=== PATIENT | female | born 1950 | race Caucasian/White ===

== ENCOUNTER 2016-08-30 20:53 | Inpatient (IN) | payer MEDICARE, OTHER ==
[~2016-08-30] VITALS: Ht 165.1 cm; Wt 77.3 kg
[~2016-08-30 20:53] MED LIST: ALPH200T PO; ASPI81TA3 PO; ATOR20TA65 PO; DIGESTIVE ENZYMES PO; FURO40TA4 PO; INSU3INS3 SUBQ; LACT1CAP65 PO; LOSA25TA2 PO; MAGN500C4 PO; METF1000 PO; METO25TA99 PO; MULT-666 PO; NITR0.4T SL; OMEG-38 PO; OXYC1TAB24 PO; POTA99TA21 PO; SPIR25TA PO; VIT1TABL83 PO; colloidal silver PO
[2016-08-30 20:58] VITALS: BP 108/59; PULSE 104; RESP 19; O2SAT 95
--- NOTE | 2016-08-30 21:25 | ED.REPORT ---
HPI-General Illness Date of Service Aug 30, 2016 ED Provider: Jhonny Weiner MD Pt is a 66 y/o female w/ a hx of ischemic cardiomyopathy, IDDM, hyperlipidemia, presenting to the ED with her via EMS c/o worsening SOB onset tonight. She c/o associated peripheral edema, orthopnea, clear productive cough for 2 days, orthopnea. Pt denies CP, fever, chills. She had similar symptoms in December at which time she was diagnosed with CHF. She has been taking medications for her CHF and states she has been doing well in this regard. She does not normally use oxygen at home. Associate Application Developer: Sera Echocardiogram 04/10/16: Interpretation Summary 1) Normal left ventricular thickness, size, and systolic function (EF 55- 60%). 2) Subtle hypokinesis of the distal anterior wall 3) Normal right ventricular size and function. 4) No significant valvular abnormalities. 5) Compared to the Echo 12/08/2015, LV function has improved from 30-35% to normal now. Nursing Notes Stated Complaint: SOB Chief Complaint: Respiratory Distress Nursing Notes Reviewed: Yes Allergies: Coded Allergies: Hednypk-Dir-Ign Reductase Inhibitor (Verified Allergy, Severe, 08/30/16) MUSCLE WEAKNESS AND TOTAL FATIGUE lisinopril (Verified Allergy, Severe, 08/30/16) NECK SWELLING telmisartan (Verified Allergy, Intermediate, RASH, 08/30/16) JALEN Inhibitors (Verified Adverse Reaction, Unknown, rash and cough, ) Scheduled ([Digestive Enzymes]) 1 TAB PO TIDWM ([colloidal silver]) 1 TSP PO BID Alpha Lipoic Acid (Alpha Lipoic Acid) 200 Mg Tablet 400 MG PO DAILY Aspirin Chew (Aspirin Chew) 81 Mg Chew 81 MG PO DAILY Atorvastatin Calcium (Atorvastatin Calcium) 20 Mg Tablet 20 MG PO HS Furosemide (Furosemide) 40 Mg Tablet 40 MG PO DAILY Insuln Asp Prt/Insulin Aspart (NovoLOG 70/30 U100 Insulin Flexpen) 100 Unit/Ml Unit 50 UNIT SUBQ BIDAC Lactobacillus Acidophilus (Probiotic) 1 Each Capsule 1 EACH PO DAILY Losartan Potassium (Cozaar) 25 Mg Tablet 12.5 MG PO HS Magnesium Oxide (Magnesium) 500 Mg Capsule 500 MG PO BID Metformin (Glucophage) 1,000 Mg Tablet 1,000 MG PO BID Metoprolol Succinate ER (Metoprolol Succinate ER) 25 Mg Tab.er.24h 12.5 MG PO MORNING Multivitamin (Once Daily) 1 Each Tablet 1 EACH PO DAILY [place]-3/Dha/Epa/Fish Oil (Fish Oil 1,000 mg Softgel) 1 Each Capsule 1 EACH PO BID Potassium Gluconate (Potassium) 99 Mg Tablet 99 MG PO DAILY Spironolactone (Aldactone) 25 Mg Tablet 25 MG PO DAILY Vit B Comp/C/FA/Iron/Vit E (Vitamin B Complex Tablet) 1 Each Tablet 1 EACH PO DAILY Scheduled PRN Nitroglycerin SL (Nitrostat) 0.4 Mg Tab.subl 0.4 MG SL Q5MIN PRN PRN For Chest Pain IF SBP > 90 oxyCODONE-Acetaminophen 5-325 mg (oxyCODONE-Acetaminophen 5-325 mg) 1 Each Tablet 1 TAB PO Q4H PRN PRN For Severe Pain Max 8 per day General Time Seen by MD: 21:12 Chief Complaint Other (SOB) Hx Obtained From: Patient, EMS Arrived By: Ambulance Sudden in Onset?: No Onset Occurred: 1 - 4 hours ago Symptom Duration: Since onset Severity: Current: No pain currently Severity: Maximum: No pain Recent Healthcare: Previous diagnosis Similar Sx Previous: Yes Past Medical History Past Medical History Notes: Associate Application Developer: Sera Past Medical History Ischemic cardiomyopathy, last echo 04/10/16 with EF of 55-60% Diabetic neuropathy IBS Osteoarthritis of back IDDM Lumbar pain with radiation down left leg Cervical spondylosis without myelopathy Hypertriglyceridemia Hypercholesterolemia Macular degeneration Retinopathy Past Surgical History Cholecystectomy and appendectomy in 1975 Left hip intramedullary nailing 11/07/15 Family History Father with a history of CAD and at 56 of what appeared to be an [place] Mother and sister with a history of diabetes Smoking History Never Smoker Social History Alcohol Use: Denies alcohol use Drug Use: Denies drug use Ambulatory Status Independent Review of Systems Full Review of Systems Constitutional: Denies: Chills, Fever Respiratory: Reports: Prod cough, clear, Shortness of breath Cardiovascular: Reports: Edema, Orthopnea, Denies: Chest pain GI: Denies: Abdominal pain, Nausea, Vomiting Complete sys rev & neg: except as marked. Physical Exam Constitutional: Well-developed, well-nourished. No distress. Not diaphoretic. Head: Normocephalic and atraumatic. Mouth/Throat: Oropharynx is clear and moist. No oropharyngeal exudate. Eyes: EOM are normal. Pupils are equal, round, and reactive to light. Neck: Supple, no tracheal deviation. Cardiovascular: Normal rate, regular rhythm. Equal and intact distal pulses throughout. Pulmonary/Chest: Effort normal. Crackles about the bilateral bases. No respiratory distress. Abdominal: Soft. No distension. There is no tenderness, rebound, or guarding. Musculoskeletal: Range of motion grossly intact, moving all extremities. 1+ peripheral edema present Neurological: AOx3. Grossly nonfocal exam. Strength and sensation intact and equal to bilateral upper and lower extremities. Skin: Warm and dry, no rashes or pallor appreciated. Psychiatric: Appropriate mood and affect. Behavior appears normal. Vital Signs Vital Signs Date Time Temp Pulse Resp B/P Pulse Ox O2 Delivery O2 Flow Rate FiO2 08/30/16 23:26 95 22 110/68 94 Room Air 08/30/16 22:33 94 19 111/68 95 Nasal Cannula 2 08/30/16 21:36 97 14 118/74 96 Nasal Cannula 2 08/30/16 20:58 37.1 104 19 108/59 95 Nasal Cannula 4 Initial VS: Reviewed, Vital signs normal Interpretation & Diagnostics Lab Results Interpretation Result Diagram: 08/30/16211408/30/162114 Test 08/30/16 21:15 White Blood Count 7.7th/mm3 (3.8-10.1) Red Blood Count 2.99mil/mm3 (3.90-5.20) Hemoglobin 10.3g/dL (12.0-15.6) Hematocrit 30.2% (35.0-46.0) Mean Corpuscular Volume 101.0fL (81-100) Mean Corpuscular Hemoglobin 34.4pg (27.0-35.0) Mean Corpuscular Hemoglobin Concent 34.1% (32.0-37.0) Red Cell Distribution Width 12.3% (12.3-15.4) Platelet Count 182bil/L (150-400) Neutrophils (%) (Auto) 78.3% (40-74) Lymphocytes (%) (Auto) 12.6% (14-46) Monocytes (%) (Auto) 6.9% (4-12) Eosinophils (%) (Auto) 1.8% (0-5) Basophils (%) (Auto) 0.1% (0-3) Sodium Level 131mEq/L (134-144) Potassium Level 5.5mEq/L (3.5-5.2) Chloride Level 93mEq/L (97-108) Carbon Dioxide Level 22mmol/L (18-29) Blood Urea Nitrogen 28mg/dL (8-27) Creatinine 1.09mg/dL (0.57-1.00) Estimat Glomerular Filtration Rate 72mL/min (>59) Glucose Level 402mg/dL (60-99) Calcium Level 9.3mg/dL (8.5-10.1) Magnesium Level 2.0mg/dL (1.6-2.6) Total Bilirubin 0.5mg/dL (0.0-1.2) Aspartate Amino Transf (AST/SGOT) 64U/L (0-50) Alanine Aminotransferase (ALT/SGPT) 45U/L (0-32) Alkaline Phosphatase 110U/L (25-165) Troponin T 0.033ug/L (0.0-0.011) Pro-B-Type Natriuretic Peptide 2795pg/mL (0-301) Total Protein 6.8g/dL (6.4-8.4) Albumin 3.9g/dL (3.4-5.0) Hold Lopez Top Tube Received (Received) ECG Interpretation ECG Interpretation: Sinus tachycardia rate [address] changes throughout anterolateral leads, more prominent on this EKG than previous on 12/28/15 Time: 21:05 Interpreted by: ED physician X-Ray Chest Interpretation Chest Xray Interpretation: IMPRESSION: Bilateral lower lobe infiltrates and small pleural effusions suspicious for pulmonary edema. A differential diagnosis is bilateral pneumonia. Recommend clinical correlation. Dictated by: Mp Blevins M.D. on 08/30/2016 at 21:32 Approved by: Mp Blevins M.D. on 08/30/2016 at 21:33 View: Portable, 1 view Interpretation / Wet Read by: Interpret - Radiologist Re-Eval/Medical Decision Med Decision/Clinical Course 66-year-old female presenting to the ED for evaluation of worsening dyspnea this evening in the setting of a history of CHF and peripheral edema starting yesterday. Upon arrival, patient hemodynamically stable; states that she does not normally wear oxygen, however given oxygen here in the ED to maintain sats. No respiratory distress. No chest pain or pressure. Laboratory studies reviewed, most notable for a troponin of 0.033, Pro BNP of 2795. BNP is down from previous, however troponin is mildly elevated. EKG demonstrates diffuse ST changes, however does not meet criteria for a STEMI. Given nitrates and Lasix here in the ED with some improvement in her symptoms. Given the above, plan admission for further management and evaluation of CHF exacerbation, serial troponins, serial EKGs. This was discussed with the hospitalist at 1130 p.m. Patient agreeable to the plan as stated, no further questions. Source of Hx: Old records, EMS Time of Eval: 22:17 Re-Evaluation/Progress Note: Pt rechecked. Informed pt of need for admission. Pt understands and agrees with plan for admission. All questions addressed. Counseled Regarding: Diagnosis, Lab results, Need for admission Discharge & Departure Primary Impression: CHF exacerbation Congestive heart failure type: unspecified congestive heart failure type Qualified Code: I50.9 - Heart failure, unspecified Disposition: ADMITTED TO HOSPITAL Discharge Condition All VS Reviewed: Yes Condition: Stable Referrals: Georgia Boyle PA-C (PCP) [facility] Attestation Portions of this note were transcribed by Malik Abraham. I, Dr. Weiner, personally performed the history, physical exam and medical decision-making; I reviewed and confirmed the accuracy of the information in the transcribed note. Signed by Ru Patel, 08/30/16 - 2199 copies to: Georgia Boyle PA-C, William B MD Aug 30, 2016 21:24 MALIK ABRAHAM Aug 30, 2016 21:58
[2016-08-30 21:26] LABS: BASOPHILS % (AUTO) 0.1 % (0-3); EOSINOPHILS % (AUTO) 1.8 % (0-5); MONOCYTES % (AUTO) 6.9 % (4-12); Mean Corpuscular Hemoglobin 34.4 pg (27.0-35.0); NEUTROPHILS % (AUTO) 78.3 % (40-74); Platelet Count 182 bil/L (150-400)
--- NOTE | 2016-08-30 21:35 | DRSVH ---
PROCEDURE: X-RAY CHEST ONE VIEW, PORTABLE ([id number]) INDICATIONS: CHEST PAIN TECHNIQUE: One view of the chest was acquired. COMPARISON: [facility], CR, XR CHEST 2VW, 12/17/2015, 12:36. [facility], C R, XR CHEST 2VW, 01/19/2016, 13:09. [facility], CR, XR CHEST 1VW (PORTABLE), 12/12/2015, 8:34. FINDINGS: Surgical changes and devices: None. Lungs and pleura: There are bilateral lower lobe infiltrates and small pleural effusions suspicious for pulmonary edema. No pleural effusions or pneumothorax. Mediastinum: Mediastinal contours appear normal. Heart size is normal. Bones and chest wall: No suspicious bony lesions. Overlying soft tissues appear unremarkable. IMPRESSION: Bilateral lower lobe infiltrates and small pleural effusions suspicious for pulmonary raiza ma. A differential diagnosis is bilateral pneumonia. Recommend clinical correlation. Dictated by: Mp Blevins M.D. on 08/30/2016 at 21:32 Approved by: Mp Blevins M.D. on 08/30/2016 at 21:33
[2016-08-30 21:36] VITALS: BP 118/74; PULSE 97; RESP 14; O2SAT 96
[2016-08-30 21:51] LABS: TROPONIN T 0.033 ug/L (0.0-0.011)
[2016-08-30 22:33] VITALS: BP 111/68; PULSE 94; RESP 19; O2SAT 95
[2016-08-30] MEDS ORDERED: Furosemide 10 mg/mL 2 mL Inj IVPUSH ONE (22:55)
[2016-08-30 23:26] VITALS: BP 110/68; PULSE 95; RESP 22; O2SAT 94
[2016-08-31] VITALS (10 sets, daily range): BP systolic 86–120; BP diastolic 60–76; PULSE 76–95; RESP 16–22; O2SAT 92–99
[2016-08-31] MEDS ORDERED: FURO40TA4 PO (00:46)
[2016-08-31] MEDS ORDERED: NOVO7030I SUBQ (00:46)
[2016-08-31] MEDS ORDERED: SPIR25TA3 PO (00:46)
[2016-08-31] MEDS ORDERED: METO25TA99 PO (00:46)
[2016-08-31] MEDS ORDERED: IBUP200C PO (00:50)
[2016-08-31] MEDS ORDERED: UBID200C31 PO (00:50)
[2016-08-31] MEDS ORDERED: PQQ PO (00:50)
[2016-08-31] MEDS ORDERED: VITA40TA PO (00:50)
[2016-08-31] MEDS ORDERED: HAWT500C PO (00:51)
[2016-08-31] MEDS ORDERED: Insulin Human REGular Inj 100 UNIT in 0.9% Sodium Chloride-Pha MIX 100 ML IV SCH ×2 (01:33→02:00)
[2016-08-31] MEDS ORDERED: Ondansetron 2 mg/mL 2 mL Inj IVPUSH PRN (01:35)
[2016-08-31] MEDS ORDERED: Polyethylene Glycol (PEG) 17 Gm Powder PO PRN (01:35)
--- NOTE | 2016-08-31 01:46 | PCM.HPMED ---
Subjective Date of Service Aug 31, 2016 Primary Provider: Admitting Physician: Mikal Spivey MD Primary Care Physician: Georgia Boyle PA-C Attending Physician: Mikal Spivey MD Chief Complaint: worsening shortness of breath History of Present Illness: 66 year old female with h/o of ischemic cardiomyopathy, IDDM, hyperlipidemia, presented to the ED with c/o worsening SOB x 1 day. She c/o associated peripheral edema, orthopnea, clear productive cough for 2 days, orthopnea. Pt denies CP, fever, chills. She had similar symptoms in December at which time she was diagnosed with CHF. She has been taking medications for her CHF and states she has been doing well in this regard. She does not normally use oxygen at home. Allergies Coded Allergies: Dliijgj-Xps-Jdo Reductase Inhibitor (Verified Allergy, Severe, 08/30/16) MUSCLE WEAKNESS AND TOTAL FATIGUE lisinopril (Verified Allergy, Severe, 08/30/16) NECK SWELLING telmisartan (Verified Allergy, Intermediate, RASH, 08/30/16) JALEN Inhibitors (Verified Adverse Reaction, Unknown, rash and cough, ) PMH Ischemic cardiomyopathy, last echo 04/10/16 with EF of 55-60% Diabetic neuropathy IBS Osteoarthritis of back IDDM Lumbar pain with radiation down left leg Cervical spondylosis without myelopathy Hypertriglyceridemia Hypercholesterolemia Macular degeneration Retinopathy Surgical History Cholecystectomy and appendectomy in 1975 Left hip intramedullary nailing 11/07/15 Family History Father with a history of CAD and at 56 of what appeared to be an [place] Mother and sister with a history of diabetes Social History Hx Alcohol Use: No Hx Substance Use: No Hx Tobacco Use: No Smoking Status: Never Smoker Exam Vital Signs Vital Sign - Last Date Time Temp Pulse Resp B/P Pulse Ox O2 Delivery O2 Flow Rate FiO2 08/31/16 01:13 18 117/76 96 Nasal Cannula 2.00 08/31/16 01:11 36.4 91 Exam Head: Normocephalic and atraumatic. Mouth/Throat: Oropharynx is clear and moist. No oropharyngeal exudate. Eyes: EOM are normal. Pupils are equal, round, and reactive to light. Neck: Supple, no tracheal deviation. Cardiovascular: Normal rate, regular rhythm. Equal and intact distal pulses throughout. Pulmonary/Chest: Effort normal. Crackles about the bilateral bases. No respiratory distress. Abdominal: Soft. No distension. There is no tenderness, rebound, or guarding. Musculoskeletal: Range of motion grossly intact, moving all extremities. 1+ peripheral edema present Neurological: AOx3. Grossly nonfocal exam. Strength and sensation intact and equal to bilateral upper and lower extremities. Skin: Warm and dry, no rashes or pallor appreciated. Psychiatric: Appropriate mood and affect. Behavior appears normal. Lab and Diagnostics Result Diagram: 08/30/16211408/30/162114 X-Rays, CTs and MRIs Chest Xray Interpretation: IMPRESSION: Bilateral lower lobe infiltrates and small pleural effusions suspicious for pulmonary edema. A differential diagnosis is bilateral pneumonia. Recommend clinical correlation. Cardiac Echo Impressions Echocardiogram 04/10/16: Interpretation Summary 1) Normal left ventricular thickness, size, and systolic function (EF 55- 60%). 2) Subtle hypokinesis of the distal anterior wall 3) Normal right ventricular size and function. 4) No significant valvular abnormalities. 5) Compared to the Echo 12/08/2015, LV function has improved from 30-35% to Assessment & Plan CHF exacerbation - Will start on iv lasix Pneumonia - Will start on empiric antibiotics: azithromycin, ceftriaxone - Sputum Cultures Elevated troponin - trending up - Likely due to demand ischemia - Will start on heparin drip - Cardiology Consult in AM Anti emetics / Analgesics prn GI ppx: PPI DVT ppx: Heparin GI Prophylaxis: Proton Pump Inhibitor VTE Prophylaxis: Sub-Q Heparin (Unfractionated) Resuscitation Status: CPR: Attempt Resuscitation Mikal Spivey MD Aug 31, 2016 01:46
[2016-08-31] MEDS: Heparin 25K Unit/500mL 0.45 NS 25,000 UNIT in IV Premix 1 EACH IV SCH (02:46)
[2016-08-31] MEDS: cefTRIAXone Inj 1,000 MG in Dextrose 5% Minibag Plus 50 ML IV SCH (03:17)
[2016-08-31 06:06] LABS: BASOPHILS % (AUTO) 0.1 % (0-3); EOSINOPHILS % (AUTO) 0.9 % (0-5); MONOCYTES % (AUTO) 11.2 % (4-12); Mean Corpuscular Hemoglobin 34.3 pg (27.0-35.0); Mean Corpuscular Volume 100.4 fL (81-100); NEUTROPHILS % (AUTO) 64.9 % (40-74); Platelet Count 165 bil/L (150-400)
[2016-08-31] MEDS ORDERED: Insulin ASPART 70/30 100 Unit/mL Syringe SUBQ SCH (07:30)
--- NOTE | 2016-08-31 07:48 | NUR ---
Arrival to [facility] room 3029 Patient arrived at 0100. alert and oriented able to make needs known. vitals stable. critical troponin result. MD paged. new order for heparin gtt. blood sugar 354. patient started on insulin gtt per md orders. no c/o pain. med rec completed in ER. vitals stable. tele in place.admission assessment completed. will continue to monitor.
[2016-08-31 09:14] LABS: BASOPHILS % (AUTO) 0.1 % (0-3); EOSINOPHILS % (AUTO) 1.6 % (0-5); MONOCYTES % (AUTO) 6.2 % (4-12); Mean Corpuscular Hemoglobin 34.7 pg (27.0-35.0); Mean Corpuscular Volume 101.1 fL (81-100); NEUTROPHILS % (AUTO) 61.4 % (40-74); Platelet Count 169 bil/L (150-400)
--- NOTE | 2016-08-31 10:55 | NUR ---
TNI/insulin drip call recd from lab reporting CH trop, now 0.091. Pt asymptomatic. Cardio consult pending. Insulin drip d/c now, last check was 87. notified of changes. Will continue to monitor.
[2016-08-31] MEDS: Heparin Protocol Boluses IVPUSH PRN ×2 (10:57→15:24)
[2016-08-31] MEDS: Furosemide 10 mg/mL 4 mL Inj IVPUSH SCH (11:29)
[2016-08-31] MEDS: Pantoprazole 20 mg ER24 Tablet PO SCH (11:29)
--- NOTE | 2016-08-31 15:35 | NUR ---
Social Work: Initial Assessment Data: Pt is a 66 y/o female admitted for CHF exacerbation. Pt's PCP is Dr Boyle, pt's insurance is Medicare with [employer] supp. EMR reviewed. Readmit score not listed. ENTRY LEVEL ACCOUNTING CLERK met with pt at bedside, role explained. Pt states she lives on [address] with her spouse in a single story home where she uses a cane. Pt is on O2 at the hospital, not on O2 at baseline. Pt drives, has hx of HH with [facility], no SNF hx, no LTC or VA benefits, and pt is not a caregiver. Likely no d/c planning needs at this time. ENTRY LEVEL ACCOUNTING CLERK will continue to follow for possible HH need or other d/c needs. Assessment: Pt who is independent at baseline. Plan: Pt will d/c home via POV when medically stable with spouse. Likely no d/c planning needs at this time. ENTRY LEVEL ACCOUNTING CLERK will continue to follow for possible HH need or other d/c needs. RYAN Devlin Addendum: 08/31/16 at 1539 by TONIE FARLEY Amended: Links added.
--- NOTE | 2016-08-31 16:42 | CONS ---
[address] [address] CONSULTATION REPORT PATIENT: REED TANNER : 1950 MR#: [id number] ADMIT: 08/31/2016 JOB ID: [id number] DATE OF SERVICE: 08/31/2016 CHIEF COMPLAINT: Shortness of breath. REQUESTING PHYSICIAN: Isaac Tolentino MD HISTORY OF PRESENT ILLNESS: This 66-year-old female with history of ischemic cardiomyopathy got admitted to the hospital with shortness of breath. This shortness of breath was gradually progressive. She used to be on a diuretic but had stopped taking her diuretics once she achieved her dry weight. She started noticing shortness of breath. She also had some chest discomfort. The chest discomfort was well localized around her sternum. It was in an area no greater than a quarter. She correctly identified it as being noncardiac. She had similar symptoms in December when she was admitted to the hospital and diagnosed with CHF. Her EF used to be around 30% to 35%. In December of last year Dr. Abbasi did an intervention on her ramus. Her MRI showed an improved EF of around 48%. There was viable myocardium. She has a chronically occluded LAD. This vessel was never intervened upon. Her last echocardiogram showed hypokinesis in the anterior wall. Her ejection fraction had also improved to about 50%. The patient currently feels better. She is less short of breath. She denied any orthopnea or PND to me. She is denying any fever or chills. She states her symptoms started a few days ago, when she started having cough. The cough was productive with clear sputum. She, as mentioned, denied any night sweats, fevers, etc. The chest x-ray done in the hospital showed bibasilar infiltrates which could be suspicious for pneumonia. There was also a suggestion of her being fluid overloaded. Her proBNP was elevated as well. PAST MEDICAL HISTORY: Ischemic cardiomyopathy, diabetes, IBS, arthritis, cervical spondylitis, dyslipidemia, macular degeneration, retinopathy. PAST SURGICAL HISTORY: Status post hip surgery, cholecystectomy, and appendectomy. FAMILY HISTORY: Positive for premature coronary artery disease in her father. PERSONAL HISTORY: Nonsmoker, nondrinker. REVIEW OF SYSTEMS: Comprehensive review of system was done and is as per HPI. More importantly, no GI or bleeding. No upcoming surgeries. PHYSICAL EXAMINATION: Vitals: Pulse is 79, blood pressure 110/69. Neck: Supple. No JVD. No bruits. Chest: Clear. Heart sounds S1, S2 regular. No gallops. Abdomen: Soft. Extremities: 2+ edema. SHEET ROCK INSTALLER: Alert and oriented x3. LABORATORY DATA: Hemoglobin is 9.6, white count is 7.7. Creatinine is 1. Troponin was 0.41 on admission and has gone up to 0.91. Her EKG shows sinus rhythm with inferolateral ST-segment depression suggestive of ischemia. Her proBNP is 2800. ASSESSMENT AND PLAN: 1. This lady has a history of ischemic cardiomyopathy. She presents with symptoms suggestive of heart failure. I would recommend aggressive diuresis and repeating a chest x-ray. If her basilar infiltrates are not resolved, then she should be treated aggressively for bilateral pneumonia. 2. She is anemic. She needs to be worked up for anemia as well. 3. Ischemic cardiomyopathy. With non-ST elevation myocardial infarction on this admission. There is evidence of viability in the LAD territory. I have reviewed the patient's angiograms, both from December 08 and December 27. I feel her LAD can be intervened upon and it might be amenable to recanalization. 4. Medication-spencer I would recommend adding spironolactone and Coreg to her current regimen. Cardiology will be happy to follow the patient along with you. Over 60 minutes were spent in patient's care. This includes reviewing her prior angiogram and prior charts, as well as interviewing the patient.
[2016-08-31] MEDS ORDERED: Insulin Human NPH-Reg 70-30 100 Unit/mL 10 ML Mdv SUBQ SCH (18:26)
[2016-08-31] MEDS: Insulin Human REGular 300 Unit/3 mL Inj SUBQ SCH ×2 (19:05→22:46)
--- NOTE | 2016-08-31 23:11 | NUR ---
Pt teaching CHF/DM Pt refused teaching. States she was dx with CHF in Dec 2015, recd teaching and pamphlet then. Has been a diabetic for >10 yrs.
[2016-09-01] VITALS (9 sets, daily range): BP systolic 95–109; BP diastolic 57–68; PULSE 88–102; RESP 16–18; O2SAT 90–99
[2016-09-01] MEDS: cefTRIAXone Inj 1,000 MG in Dextrose 5% Minibag Plus 50 ML IV SCH (02:01)
[2016-09-01] MEDS: Heparin 25K Unit/500mL 0.45 NS 25,000 UNIT in IV Premix 1 EACH IV SCH (02:02)
--- NOTE | 2016-09-01 05:45 | NUR ---
Night PT slept well all night, no voiced complaints. Blood sugars under 200, she remains NPO for possibility of a visit to the label remover.
[2016-09-01 07:36] LABS: INR 1.05 ratio
[2016-09-01] MEDS: Insulin Human REGular 300 Unit/3 mL Inj SUBQ SCH ×4 (07:50→20:40)
[2016-09-01] MEDS: Furosemide 10 mg/mL 4 mL Inj IVPUSH SCH (07:50)
--- NOTE | 2016-09-01 08:00 | NUR ---
IVF Pt with DM2 on D5 1/2 NS (NPO waiting on cardio orders). Bilateral LE with trace of pitting edema. BG continue to be high, on sliding scale insulin. MD notified of above and asked to possibly transition to NS for hydration.
[2016-09-01 09:07] LABS: Magnesium 1.9 mg/dL (1.6-2.6)
[2016-09-01] MEDS: Pantoprazole 20 mg ER24 Tablet PO SCH (11:20)
--- NOTE | 2016-09-01 14:10 | DRSVH ---
PROCEDURE: X-RAY CHEST, TWO VIEWS ([id number]) INDICATIONS: SOB TECHNIQUE: 2 views of the chest were acquired. COMPARISON: [facility], CR, XR CHEST 1VW (PORTABLE), 08/30/2016, 20:51. [facility], CR, XR CHEST 2VW, 01/19/2016, 13:09. FINDINGS: Surgical changes and devices: None. Lungs and pleura: Slight decrease in pulmonary edema as well as air space opacity involving the right lung base, otherwise bibasilar airspace opacities persist and there is a small left pleural effusion . Mediastinum: Mediastinal contours are normal. Heart size is normal. Bones and chest wall: No suspicious bony abnormalities. Soft tissues appear unremarkable. IMPRESSION: Slight decrease in pulmonary edema as well as improvement involving the right lung base with persiste nt consolidation involving the left lung base. Small pleural effusion. Dictated by: Donovan CAPPS Interpreted: Shayy Styles MD on 09/01/2016 at 9:37 Approved by: Shayy Styles M.D. on 09/01/2016 at 14:07
--- NOTE | 2016-09-01 15:54 | NUR ---
GENEVIEVE Signed @ [id number]
[2016-09-01] MEDS: Insulin ASPART 70/30 FlexPen 300 Unit/3 mL Inj SUBQ SCH (17:16)
--- NOTE | 2016-09-01 18:08 | NUR ---
Oxygen Pt now on RA, sating in upper 90s. Denies SOB, difficulty breathing. Will continue to monitor.
--- NOTE | 2016-09-01 18:26 | PCM.PNMED ---
Subjective Date of Service Sep 01, 2016 Subjective Denies any new issues/complaints Exam Vital Signs Vital Sign - Last Date Time Temp Pulse Resp B/P Pulse Ox O2 Delivery O2 Flow Rate FiO2 09/01/16 17:24 36.9 100 16 109/68 97 Room Air 09/01/16 09:35 0.50 Intake and Output 08/31/16 08/31/16 09/01/16 Cumulative From/Thru 15:00 23:00 07:00 08/30/16 20:58 - 09/01/16 05:06 Intake Total 31 ml 1818 ml 0 ml 1849 ml Output Total 800 ml 850 ml 2450 ml Balance -769 ml 968 ml 0 ml -601 ml Intake Oral 0 ml 0 ml 0 ml IV Total 31 ml 1818 ml 1849 ml Output Urine Total 800 ml 850 ml 2450 ml # Voids 1 1 # Bowel Movements 1 1 General: Alert, Cooperative, No Acute Distress Head: Normal Eyes: Scleral Anicteric Nose: Mucous Membr Moist/[place] Mouth: Mucous Membr Moist/[place] Neck: Supple Chest & Lungs: Chest Wall Normal, Clear to auscultation & percussion Cardiovascular: Regular Rate/Rhythm Pulses: NL carotid, radial, femoral, DP, PT Abdomen: Non-tender, Non-distended, Normoactive bowel tones, Soft Extremities: No cyanosis/clubbing/edma bilat Neurological: Grossly Neurologically Intact, Normal Speech IVs and Medications Medications Reviewed: Medications were reviewed in detail Lab and Diagnostics Result Diagram: 08/31/16 0911 09/01/16 0658 X-Rays, CTs and MRIs Date of Service: 09/01/16 0600 PROCEDURE: X-RAY CHEST, TWO VIEWS ([id number]) IMPRESSION: Slight decrease in pulmonary edema as well as improvement involving the right lung base with persistent consolidation involving the left lung base. Small pleural effusion. Dictated by: Donovan Nichols A Interpreted: Shayy Styles MD on 09/01/2016 at 9:37 Approved by: Shayy Styles M.D. on 09/01/2016 at 14:07 Cardiac Echo Impressions Echocardiogram 04/10/16: Interpretation Summary 1) Normal left ventricular thickness, size, and systolic function (EF 55- 60%). 2) Subtle hypokinesis of the distal anterior wall 3) Normal right ventricular size and function. 4) No significant valvular abnormalities. 5) Compared to the Echo 12/08/2015, LV function has improved from 30-35% to Assessment & Plan 66 year old female with h/o of ischemic cardiomyopathy, IDDM, hyperlipidemia, presented to the ED with c/o worsening SOB x 1 day. She c/o associated peripheral edema, orthopnea, clear productive cough for 2 days, orthopnea. Pt denies CP, fever, chills. She had similar symptoms in December at which time she was diagnosed with CHF. # Acute on chronic systolic congestive heart failure, present on admission - Continue with IV Lasix for now - No echo ordered on admission. Will order limited echo (last one in Apr 2016) - Appreciate cardiology consult. Will followup with recs # Suspected acute pneumonia on admission. - Clinically seems unlikely given no significant leukocytosis, negative procalcitonin, afebrile and without any other general symptoms other than occasional cough - Will stop azithromycin and ceftriaxone that was started on admission - Followup pending cultures - Followup repeat chest x-ray in few day or as outpatient to ensure resolution # Elevated troponin, present on admission - Possible demand ischemia vs acute NSTEMI - Appreciate cardiology consult. Will followup with recommendations - Unclear if plan for cath or further medical management at this time. - Continue with current meds # Diabetes mellitus - Continue with home dose Insulin - ISS # Reported history of hyperlipidemia on admission - Check fasting lipid panel - Reported allergy to Statins Dispo: 1-2 days pending cardiology workup GI Prophylaxis: Proton Pump Inhibitor VTE Prophylaxis: Sub-Q Heparin (Unfractionated) VTE Mechanical Devices: Venous Foot Pump Resuscitation Status: CPR: Attempt Resuscitation Isaac Tolentino Sep 01, 2016 18:26
--- NOTE | 2016-09-01 18:42 | NUR ---
IV heparin d/c Per orders, IV heparin stopped. Pt denied observing any signs of bleeding. Is happy to be "free" of IV pole.
[2016-09-01] MEDS: MeTOProlol XL 25 mg ER24 Tablet PO SCH (21:26)
[2016-09-02] VITALS (14 sets, daily range): BP systolic 98–122; BP diastolic 60–77; PULSE 85–127; RESP 16–25; O2SAT 86–100
--- NOTE | 2016-09-02 00:11 | PROG NOTE ---
[address] [address] PROGRESS NOTE PATIENT: REED TANNER : 1950 MR#: [id number] ADMIT: 08/31/2016 JOB ID: [id number] DATE: 09/01/2016 SUBJECTIVE: The patient says she is feeling much better. She is almost ready to go home. OBJECTIVE: Vital signs reviewed. Temperature 36.7 degrees. Blood pressure 95/59, up to 109/68. Pulse 88, up to 102 beats per minute. Satting 99% on 0.5 L O2 via nasal cannula. Her I's and O's yesterday she put out 600 cc out more than in. Her weight is stable on built in bed scale. CURRENT MEDICATIONS: 1. Aspirin 81 mg daily. 2. Lasix 40 mg IV. 3. Spironolactone 25 mg daily. 4. 70/30 insulin. 5. Humulin sliding scale. 6. Azithromycin and ceftriaxone. 7. Metoprolol succinate 25 mg daily. PHYSICAL EXAMINATION: Well-nourished woman, no apparent distress. Eyes: No scleral icterus. Heart: Normal S1, S2. No murmurs. Lungs with crackles at bases bilaterally. Abdomen is soft, positive bowel sounds. No hepatosplenomegaly. Extremities show mild bilateral edema. ASSESSMENT AND PLAN: This is a 66-year-old woman with history of ischemic cardiomyopathy, status post intervention December 2015. At that time, drug-eluting stent was deployed. It is interesting to note that she does not recall taking Plavix and certainly has not been on it recently. Be that as it may, her ejection fraction improved after intervention going up from 30-35% in December 2015 up to 55% on the more recent echocardiogram in April 2016. She has chronic total occlusion of LAD with evidence of viability based on cardiac MRI. Her angiograms were reviewed by faculty at [facility]. Both Dr. Nelson and Dr. Rodriguez weighed in on her angiogram and felt that intervention to LAD would be high risk. The patient had a consultation with Dr. Zamora and at that time decided that she did not want to pursue anything particularly risky and preferred to be managed medically. She was admitted with basically episode of acute decompensated heart failure after stopping her Lasix in March 2016. She says she has been compliant with Toprol-XL and spironolactone. She is not taking either JALEN-inhibitor nor angiotensin receptor reagan due to history of allergy with hives and "throat tightness." EKG shows stable old [address]-depression in leads V4-V6, infrequent PACs as well as mild troponin T elevation at 0.09. The plan for this patient is to repeat limited echocardiogram tomorrow, initiate beta reagan, and have her follow up as an outpatient with Dr. Zamora because she says she is feeling markedly better. Depending on how she looks, she may be eligible potentially to be sent home tomorrow which will be on September 02, 2016. Thank you very much for the opportunity to evaluate her. KAREN
[2016-09-02] MEDS: cefTRIAXone Inj 1,000 MG in Dextrose 5% Minibag Plus 50 ML IV SCH (01:18)
--- NOTE | 2016-09-02 03:17 | NUR ---
PT COMPLAINTS/OXYGEN NEEDS Pt c/o "pressure in my chest." Pt states she has had this feeling before, but it's "more now." Pt was placed on 0.5L towards the beginning of the shift, d/t oxygen saturations 90% on RA. At time pt c/o chest pressure, oxygen saturation 86% on 0.5L. EKG ordered, SR. Oxygen turned up to 2-3L to maintain 92-93%. Pt states pressure resolved after oxygen saturation improved. Later pt c/o "bloating in my diaphragm." Pt requested soda to belch. Pt given soda, pt did belch, states release of gas has alleviated symptoms. Pt denies "heartburn" feeling. LS scattered crackles, whereas initial assessment, LS clear. paged regarding pt complaints, LS and oxygen use, and for possible dose of IV lasix. Due to pts lower BPs, lasix will not be given at this time. Continue to monitor.
[2016-09-02] MEDS: Alum-Mag Hydrox-Simeth 30 mL Suspension PO PRN ×2 (03:38→12:08)
[2016-09-02 07:33] LABS: BASOPHILS % (AUTO) 0.4 % (0-3); MONOCYTES % (AUTO) 10.4 % (4-12); Mean Corpuscular Hemoglobin 33.8 pg (27.0-35.0); Mean Corpuscular Volume 100.4 fL (81-100); NEUTROPHILS % (AUTO) 53.9 % (40-74); Platelet Count 183 bil/L (150-400)
[2016-09-02 07:57] LABS: Magnesium 1.9 mg/dL (1.6-2.6)
[2016-09-02] MEDS: Furosemide 10 mg/mL 4 mL Inj IVPUSH SCH (09:03)
[2016-09-02] MEDS: Insulin Human REGular 300 Unit/3 mL Inj SUBQ SCH ×4 (09:05→21:18)
[2016-09-02] MEDS: Pantoprazole 20 mg ER24 Tablet PO SCH (09:06)
[2016-09-02] MEDS: MeTOProlol XL 25 mg ER24 Tablet PO SCH (09:06)
--- NOTE | 2016-09-02 11:35 | NUR ---
02 titration Pt on 3L via NC, 02 sat 97-98%. Titrated down to 2L at 1130. Addendum: 09/02/16 at 1827 by NESTOR BHAGAT RN Pt 02 sats 100% on 2L while sitting up, eating and talking without difficulty. 02 titrated down to 1L via NC.
--- NOTE | 2016-09-02 12:31 | NUR ---
Social Work-readiness for discharge: Data:EMR Reviewed. Pt is on day 2 of hospitalization for CHF exacerbation per H&P. Pt is not medically stable anticipate 1-2 more days. has not placed any orders for SW at this time. Pt resides at home with her , pt has been up independent in her room. No anticipated discharge needs. SW will continue to follow if needs arise. Assessment:Pt who is independent at baseline. Plan:Pt to discharge home when medically stable via POV. No anticipated discharge needs. SW will continue to follow if needs arise. RYAN Oseguera
--- NOTE | 2016-09-02 16:00 | DRSVH ---
Located Within [facility] [address] [place] [address] Echocardiogram Report Name: REED TANNER LStudy Date: 09/02/2016 Height: 66 in Hospital Exam Location: [facility] Weight: 172 lb Gender: Female BSA: 1.9 m2 : 1950 Age: 66 yrs BP: 102/66 mmHg Reason For Study: Congestive Heart Failure History: CAD Ordering Physician: Cora Mccarty Performed By: Dalia Sales Referring Physician: Robin Johnson Interpretation Summary NSR. Worsening cardiomyopathy. Normal LV size and upper limit of normal concentric LVH. There is mid- inferoseptal, mid-anteroseptal, distal septal, mid-inferolateral and basal anterolateral hypokinesis. There is basal anterior, mid-anterior, distal- anterior, mid-anterolateral akinesis. Otherwise normal wall motion. EF is 35- 40%. Stage II diastolic dysfunction. Moderate bilateral pleural effusions. Compared to prior study 04/10/2016, pleural effusions are new. EF is down from 50-55% to 35-40%. Focal wall motion abnormalities are new. Procedure: A two-dimensional transthoracic echocardiogram with color flow and Doppler was performed in limited views only. The study quality was technically adequate. Comparison is made with the echocardiogram of 04/10/2016. The patient was in normal sinus rhythm during the exam. The patient had occasional PACs during the exam. Left Ventricle: The left ventricle is normal in size. Left ventricular wall thickness is at the upper limits of normal. The ejection fraction is estimated to be 35-40%. Spectral Doppler of the mitral inflow yields an E/A ratio that is between 0.8 and 1.5. The E/E' ratio is abnormal. Right Ventricle: The right ventricle is normal in size and function. Mitral Valve: There is mild mitral regurgitation. Tricuspid Valve: There is trace tricuspid regurgitation. The right ventricular systolic pressure is estimated at least 51 mmHg assuming a right atrial pressure of 8 mm Hg. Compared to the prior echo exam, there has been an increase in the severity of pulmonary hypertension. Great Vessels: The IVC is of normal diameter and collapses less than 50% with a sniff. This suggests a right atrial pressure of 8 mm Hg. Pericardium/ Pleura There is a small loculated pericardial effusion. There are no echocardiographic or Doppler indications for cardiac tamponade. There are moderate-sized bilateral pleural effusions noted. MMode/2D Measurements & Calculations LVIDd: 4.6 cm RA long axis EDV(MOD-sp2) LVIDs: 3.2 cm LA A4 area: 20.3 cm FS: 30.7 % LA length (vol): 4.9 cm RA area ESV(MOD-sp2) IVSd: 0.97 cm IVC diam: 2.0 cm LVPWd: 1.0 cm : 10.5 cm EF(MOD-sp2) RA vol: 24.5 ml: 34.8 % RA : 13.2 mm2 LV oh. diameter/BSA LV sys. diameter/BSA (cm/m^2): 2.5 (cm/m^2): 1.7 Doppler Measurements & Calculations MV E max michele MV E/A: 1.3 TR max michele MV dec time : 111.6 cm/sec Med Peak E' Michele : 327.2 cm/sec : 0.11 sec MV A max michele TR max PG : 84.7 cm/sec E/E' med: 24.3 : 42.8 mmHg MV P1/2t: 32.1 msec Lat Peak E' Michele MR ERO: 0.05 cm2 E/E' lat: 20.3 E/e' average: 22.3 MV P1/2t max michele MR flow rate : 24.6 cm3/sec MVA(P1/2t): 6.9 cm2 MR PISA radius : 0.30 cm Reading Physician:03:59 PM
--- NOTE | 2016-09-02 16:46 | PCM.PNMED ---
Subjective Date of Service Sep 02, 2016 Subjective Denies any new issues/complaints Exam Vital Signs Vital Sign - Last Date Time Temp Pulse Resp B/P Pulse Ox O2 Delivery O2 Flow Rate FiO2 09/02/16 13:28 36.6 87 18 105/65 96 Nasal Cannula 2.00 Intake and Output 09/01/16 09/01/16 09/02/16 Cumulative From/Thru 14:59 22:59 06:59 08/30/16 20:58 - 09/02/16 06:48 Intake Total 1297 ml 302 ml 3448 ml Output Total 1175 ml 300 ml 3925 ml Balance 122 ml 2 ml -477 ml Intake Oral 836 ml 237 ml 1073 ml IV Total 461 ml 65 ml 2375 ml Output Urine Total 1175 ml 300 ml 3925 ml # Voids 1 # Bowel Movements 1 2 Exam General: Alert, Cooperative, No Acute Distress Head: Normal Eyes: Scleral Anicteric Nose: Mucous Membr Moist/[place] Mouth: Mucous Membr Moist/[place] Neck: Supple Chest & Lungs: Chest Wall Normal, Clear to auscultation bilat Cardiovascular: Regular Rate/Rhythm Pulses: NL carotid, radial, femoral, DP, PT Abdomen: Non-tender, Non-distended, Normoactive bowel tones, Soft Extremities: No cyanosis/clubbing/edema bilat Neurological: Grossly Neurologically Intact, Normal Speech IVs and Medications Medications Reviewed: Medications were reviewed in detail Lab and Diagnostics Result Diagram: 09/02/16 0620 09/02/16 0620 X-Rays, CTs and MRIs Date of Service: 09/01/16 0600 PROCEDURE: X-RAY CHEST, TWO VIEWS ([id number]) IMPRESSION: Slight decrease in pulmonary edema as well as improvement involving the right lung base with persistent consolidation involving the left lung base. Small pleural effusion. Dictated by: Donovan Nichols RR Interpreted: Shayy Styles MD on 09/01/2016 at 9:37 Approved by: Shayy Styles M.D. on 09/01/2016 at 14:07 Cardiac Echo Impressions Date of Service: 09/02/16 0735 Echocardiogram Report Interpretation Summary NSR. Worsening cardiomyopathy. Normal LV size and upper limit of normal concentric LVH. There is mid- inferoseptal, mid-anteroseptal, distal septal, mid-inferolateral and basal anterolateral hypokinesis. There is basal anterior, mid-anterior, distal- anterior, mid-anterolateral akinesis. Otherwise normal wall motion. EF is 35- 40%. Stage II diastolic dysfunction. Moderate bilateral pleural effusions. Compared to prior study 04/10/2016, pleural effusions are new. EF is down from 50-55% to 35-40%. Focal wall motion abnormalities are new. Reading Physician:03:59 PM Assessment & Plan 66 year old female with h/o of ischemic cardiomyopathy, IDDM, hyperlipidemia, presented to the ED with c/o worsening SOB x 1 day. # Acute on chronic systolic congestive heart failure, present on admission - Continue with IV Lasix for now - Echo 09/02 showing: "Compared to prior study 04/10/2016, pleural effusions are new. EF is down from 50-55% to 35-40%. Focal wall motion abnormalities are new. " - Appreciate cardiology consult. Will followup with recs # Elevated troponin, present on admission likely representing acute NSTEMI given echo findings noted above - Appreciate cardiology consult. Will followup with recommendations - Resume heparin drip - Cardiac med adjustment per cardiology consult - Tentative plan for cardiac cath on Sunday # Acute hyponatremia and mild azotemia. Not present on admission. - Likely due to pre-renal state from IV Lasix and cardiomyopathy - Followup BMP closely # Suspected acute pneumonia on admission. - Clinically seems unlikely given no significant leukocytosis, negative procalcitonin, afebrile and without any other general symptoms other than occasional cough - Hold azithromycin and ceftriaxone that was started on admission - Followup pending cultures - Followup repeat chest x-ray in few day or as outpatient to ensure resolution # Diabetes mellitus - Continue with home dose Insulin - ISS # Reported history of hyperlipidemia on admission - Fasting lipid panel wnl - Reported allergy to Statins Dispo: 2-3 days pending cardiology workup GI Prophylaxis: Proton Pump Inhibitor VTE Prophylaxis: Sub-Q Heparin (Unfractionated) VTE Mechanical Devices: Venous Foot Pump Resuscitation Status: CPR: Attempt Resuscitation Isaac Tolentino Sep 02, 2016 16:46
[2016-09-02] MEDS ORDERED: Heparin 25K Unit/500mL 0.45 NS 25,000 UNIT in IV Premix 1 EACH IV SCH (16:50)
[2016-09-02] MEDS ORDERED: Heparin 5,000 Unit/mL Inj IVPUSH PRN (16:50)
[2016-09-02] MEDS ORDERED: Furosemide 10 mg/mL 2 mL Inj IVPUSH ONE (17:10)
[2016-09-02] MEDS: Insulin ASPART 70/30 FlexPen 300 Unit/3 mL Inj SUBQ SCH (17:33)
--- NOTE | 2016-09-02 17:39 | NUR ---
Heparin gtt Heparin gtt started this evening at 1735 following STAT PTT. Pt on a cardiac infusion, initial rate at 1000u/hr (20ml/hr). Pt educated on indicators of bleeding, reports understanding.
--- NOTE | 2016-09-02 18:20 | NUR ---
Heparin gtt PTT result: 24.9. Current rate 1000u/hr (20ml/hr). Per protocol, Heparin bolus of 5000unit given and rate increased to 1200u/hr (24ml/hr). Next PTT check in 6 hours. Above verified with Mariella Carrasco RN.
[2016-09-02] MEDS ORDERED: MeTOProlol 1 mg/mL 5 mL Inj IV ONE ×3 (21:55→23:30)
[2016-09-02 21:56] LABS: APPEARANCE,URINE HAZY (CLEAR,HAZY); COLOR,URINE STRAW (YELLOW); OCCULT BLOOD,URINE NEGATIVE (NEGATIVE); UROBILINOGEN,URINE NORMAL (NORMAL)
[2016-09-02 22:31] LABS: BASOPHILS % (AUTO) 0.3 % (0-3); EOSINOPHILS % (AUTO) 4.9 % (0-5); MONOCYTES % (AUTO) 9.3 % (4-12); Mean Corpuscular Hemoglobin 34.4 pg (27.0-35.0); Mean Corpuscular Volume 100.7 fL (81-100); NEUTROPHILS % (AUTO) 52.4 % (40-74); Platelet Count 205 bil/L (150-400)
--- NOTE | 2016-09-02 22:34 | NUR ---
ATTEMPTED TO NOTIFY PTS OF TRANSFER RN called pts , Nick, @ [phone]. Pts did not answer. RN left message that pt transferred to Room 2024, and phone # [phone] left on message for pts to call with any questions.
--- NOTE | 2016-09-02 22:36 | NUR ---
TRANSFER TO [facility] 2024 Pt up to BR, c/o SOB, oxygen needs increased from 1L NC to 5L oxymask to maintain adequate oxygen saturations. HR sustaining 120-140s. EKG obtained, sinus tachycardia. Pt denies chest pain. LS faint crackles. MD notified of pt change in condition. Orders rec'd for OT dose IV metoprolol 5mg and to transfer to 2nd floor. Pts personal belongings, chart and medications transferred downstairs w/ pt. Pt transported via hospital bed, on 5L w/ portable oxygen tank, on MP30 monitor. Hep gtt infusing. [facility] RN escorted pt to 2024 approx 2214. Face to face report given to [facility] RNAnabel.
--- NOTE | 2016-09-02 22:38 | ABG ---
DateTimeAnalyzed 22:30:11 -_ pH ____7.347 - 7.350 7.450 pCO2 ___51.0__ -mmHg 35.0 45.0 pO2 ___22.5__ -mmHg 69.0 116 HCO3- ___28.0__ -mmol/L 22.0 26.0 ABE ____2.1__ -mmol/L tHb ___10.0__ -g/dL O2Hb ___29.7__ -% COHb ____1.3__ -% 1.5 MetHb ____0.4__ -% sO2 ___30.2__ -% FIO2 ___21.0__ -% Drawn By MK - Date/Time Notified____ 22:37:00 -_ Liter_Flow ____7.00_ -L/min Oxygen Device 1 __oxymask - Notified By MK - Notified Whom sullenburger - K+ ____4.0__ -mmol/L tO2 ____4.2__ -Vol% Martín test _Positive -
[2016-09-02 23:16] LABS: Magnesium 1.8 mg/dL (1.6-2.6)
[2016-09-02 23:19] LABS: TROPONIN T 0.061 ug/L (0.0-0.011)
[2016-09-03] VITALS (12 sets, daily range): BP systolic 85–126; BP diastolic 53–77; PULSE 78–97; RESP 15–21; O2SAT 94–100
[2016-09-03] MEDS ORDERED: Diltiazem 5 mg/mL 5 mL Inj ONE (01:45)
[2016-09-03] MEDS ORDERED: Diltiazem 5 mg/mL 5 mL Inj IV ONE (01:55)
[2016-09-03 05:13] LABS: BASOPHILS % (AUTO) 0.3 % (0-3); EOSINOPHILS % (AUTO) 1.5 % (0-5); MONOCYTES % (AUTO) 8.7 % (4-12); Mean Corpuscular Hemoglobin 33.6 pg (27.0-35.0); Mean Corpuscular Volume 100.4 fL (81-100); NEUTROPHILS % (AUTO) 59.5 % (40-74); Platelet Count 205 bil/L (150-400)
[2016-09-03 05:53] LABS: Unsaturated Iron Binding 196.1 ug/dL
[2016-09-03] MEDS: Pantoprazole 20 mg ER24 Tablet PO SCH (07:30)
[2016-09-03] MEDS: Insulin Human REGular 300 Unit/3 mL Inj SUBQ SCH ×4 (07:30→21:39)
--- NOTE | 2016-09-03 07:38 | NUR ---
HR Pt's HR upon arrival to [facility] Room 2024 was A-Fib 120s-140s and sustaining at that rate. Pt was given 2.5mg metoprolol IVP and pt's HR was A-Fib 120s. Pt was given another 2.5mg metoprolol IVP and pt's HR went down A-Fib 110s-120s. Pt was then given 5mg diltiazem IVP and pt's HR went down to SR 70s-80s at approximately 0230. Pt has remained in SR throughout the rest of the shift.
[2016-09-03] MEDS: Furosemide 10 mg/mL 4 mL Inj IVPUSH SCH (08:30)
[2016-09-03] MEDS: MeTOProlol XL 25 mg ER24 Tablet PO SCH (08:30)
--- NOTE | 2016-09-03 08:38 | DRSVH ---
PROCEDURE: X-RAY CHEST ONE VIEW, PORTABLE ([id number]) INDICATIONS: INCREASED O2 NEEDS TECHNIQUE: One view of the chest was acquired. COMPARISON: [facility], CR, XR CHEST 2VW, 09/01/2016, 8:11. [facility], CR, XR CHEST 1VW (PORTABLE), 08/30/2016, 20:51. FINDINGS: Surgical changes and devices: None. Lungs and pleura: No pleural effusions or pneumothorax. Lungs are abnormal with worsening pulmonary edema bilaterally and small subpulmonic pleural effusions. Mediastinum: Mediastinal contours appear normal. Heart size is mildly enlarged. Bones and chest wall: No suspicious bony lesions. Overlying soft tissues appear unremarkable. IMPRESSION: Worsening CHF pattern. Small subpulmonic bilateral pleural effusions. Dictated by: Mickey Faustin M.D. on 09/03/2016 at 8:36 Approved by: Mickey Faustin M.D. on 09/03/2016 at 8:36
--- NOTE | 2016-09-03 10:02 | PROG NOTE ---
[address] [address] PROGRESS NOTE PATIENT: REED TANNER : 1950 MR#: [id number] ADMIT: 08/31/2016 JOB ID: [id number] DATE: 09/02/2016 CHIEF COMPLAINT: Shortness of breath. SUBJECTIVE: Patient reports that her breathing is improved even though her output has not been that impressive. She denies any chest discomfort. She reports mild epigastric discomfort that is nonexertional and lasts a few minutes at a time. She has had a one or two spells throughout the day. OBJECTIVE: VITAL SIGNS: Temperature 98/64 up to 122/77, pulse 85 up to 130 beats per minute. Satting 86 up to 100% on 0.5 L up to 5 L nasal cannula. I's and O's she put out 482 cc out more than in. A very pleasant elderly woman in no apparent distress. Eyes: No scleral icterus. Neck is supple, no lymphadenopathy. No carotid bruits. Heart normal S1, S2, no murmurs. Lungs clear to auscultation anteriorly. Abdomen is soft, positive bowel sounds. No hepatosplenomegaly. Extremities mild edema bilaterally. DIAGNOSTIC STUDIES: Labs reviewed. Troponin T peaked at 0.09 in the setting of normal kidney function. Electrolytes are significant for mild hyponatremia. Sodium 131. Hyperglycemia, blood glucose 393. Magnesium 1.8. She is anemic. She denies overt bleeding or dark tarry stools, but she has chronic diarrhea. Her hematocrit is 29%. Echocardiogram performed September 02, 2016, demonstrated a progressive decline in ejection fraction. EF is now 35-40% down from 50-55% April 10, 2016. 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 CURRENT MEDICATIONS: 1. Aspirin 81 mg daily. 2. Rosuvastatin 5 mg daily. 3. Lasix 40 mg IV daily plus she got a bonus 20 mg push IV early in the afternoon of September 02, 2016. 4. Spironolactone 25 mg daily. 5. Heparin drip per ACS protocol. 6. Toprol-XL 25 mg daily. ASSESSMENT: This is a delightful 66-year-old woman with a history of ischemic cardiomyopathy, status post intervention to ramus intermedius, December 2015. At that time Drug-eluting stent was deployed. Her ejection fraction improved between December 2015 and April 2016, but subsequently got worse again. She has documented chronic total occlusion of left anterior descending with evidence of viability based on cardiac MRI and her management has been sub par because she has not been taking aspirin nor Plavix nor statin as an outpatient due to history of intolerance. PLAN: 1. Start aspirin. 2. Start Plavix. 3. Continue heparin drip per ACS protocol. 4. Continue Toprol-XL. 5. Cardiomyopathy unable to tolerate JALEN inhibitor and ARB due to allergies. 6. Continue diuresis with Lasix. 7. Continue spironolactone. 8. Plan to take her back to the lab and evaluate the etiology of worsening cardiomyopathy via invasive ischemic evaluation namely cardiac catheterization. Consent was obtained. All questions were answered. Thank you very much for the opportunity to participate in this patient's care. Of note, patient says that she has no bright red blood per rectum. No hematuria and yet she is anemic. I recommend for her to have anemia evaluation and Dr. Tolentino will kindly assist in that.
--- NOTE | 2016-09-03 16:44 | PCM.PNMED ---
Subjective Date of Service Sep 03, 2016 Subjective 66 year old female with h/o of ischemic cardiomyopathy, IDDM, hyperlipidemia, presented to the ED with c/o worsening SOB x 1 day. She c/o associated peripheral edema, orthopnea, clear productive cough for 2 days, orthopnea. Pt denies CP, fever, chills. She had similar symptoms in December at which time she was diagnosed with CHF. She has been taking medications for her CHF and states she has been doing well in this regard. She does not normally use oxygen at home. Overnight events: No acute overnight events. Today patient reports increased shortness of breath and is requiring intermittent BIPAP placement. She denies fever, chills, nausea, vomiting, chest pain, abdominal pain, constipation, diarrhea. Exam Vital Signs Vital Sign - Last Date Time Temp Pulse Resp B/P Pulse Ox O2 Delivery O2 Flow Rate FiO2 09/03/16 04:27 78 15 92/53 100 40 09/03/16 03:46 BiPAP 09/02/16 21:54 5.00 09/02/16 20:29 36.6 Intake and Output 09/02/16 09/02/16 09/03/16 Cumulative From/Thru 15:00 23:00 07:00 08/30/16 20:58 - 09/03/16 06:08 Intake Total 1216 ml 100 ml 4764 ml Output Total 1700 ml 0 ml 5625 ml Balance -484 ml 100 ml -861 ml Intake Oral 1216 ml 100 ml 2389 ml IV Total 2375 ml Output Urine Total 1700 ml 0 ml 5625 ml # Voids 1 # Bowel Movements 2 4 Exam General: Patient in very mild acute distress, well-developed, well-nourished, appropriately interactive HEENT: Normocephalic, atraumatic. External ears without defect. Pupils equal, round, and reactive to light and accommodation. Anicteric sclerae, moist conjunctivae, and no lid lag. Oropharynx free of erythema and cobble stoning with moist mucosa. Neck: Supple with full range of motion. No jugular venous distension. No bruits. No lymphadenopathy or thyromegaly. Cardiovascular: Regular rate and rhythm with no murmurs, rubs, or gallops appreciated Pulmonary: Clear to auscultation bilaterally with very mild fine crackles b/l bases, no wheezes, or rhonchi. Normal respiratory effort with no use of accessory muscles with non rebreather oxy mask in place at 3L O2. Abdomen: Bowel tones present. Soft, nontender, nondistended. No hepatosplenomegaly or masses appreciated. Extremities: No clubbing, cyanosis, edema, or lymphadenopathy appreciated. Skin: Normal temperature, turgor, and texture; no rash, ulcers, or subcutaneous nodules appreciated. Neurological: Cranial nerves grossly intact. Normal muscle strength, tone, and bulk. Reflexes, coordination, and sensory function within normal limits. No known gait impairment. Psychiatric: Normal mood and affect. Alert and oriented to person, place, and time. IVs and Medications Medications Reviewed: Medications were reviewed in detail Lab and Diagnostics Result Diagram: 09/03/1650909/03/16509 X-Rays, CTs and MRIs Date of Service: 09/01/16 0600 PROCEDURE: X-RAY CHEST, TWO VIEWS ([id number]) IMPRESSION: Slight decrease in pulmonary edema as well as improvement involving the right lung base with persistent consolidation involving the left lung base. Small pleural effusion. Dictated by: Donovan Nichols [facility] Interpreted: Shayy Styles MD on 09/01/2016 at 9:37 Approved by: Shayy Styles M.D. on 09/01/2016 at 14:07 Cardiac Echo Impressions Date of Service: 09/02/16 0735 Echocardiogram Report Interpretation Summary NSR. Worsening cardiomyopathy. Normal LV size and upper limit of normal concentric LVH. There is mid- inferoseptal, mid-anteroseptal, distal septal, mid-inferolateral and basal anterolateral hypokinesis. There is basal anterior, mid-anterior, distal- anterior, mid-anterolateral akinesis. Otherwise normal wall motion. EF is 35- 40%. Stage II diastolic dysfunction. Moderate bilateral pleural effusions. Compared to prior study 04/10/2016, pleural effusions are new. EF is down from 50-55% to 35-40%. Focal wall motion abnormalities are new. Reading Physician:03:59 PM Assessment & Plan 66 year old female with h/o of ischemic cardiomyopathy, IDDM, hyperlipidemia, presented to the ED with c/o worsening SOB x 1 day. Chronic Ischemic Cardiomyopathy, present on admission, active. - Appreciate cardiology consult. Will followup with recommendations - Troponins from 08/30 0.033 to 09/02 0.061, with high of 0.091 on 08/31. - Plan for Cardiac catheterization 09/04/16. - Start ASA, Plavix, Heparin ggt,. Acute decompensated Heart Failure with reduced ejection fraction, present on admission.Active. - Continue with IV Lasix as needed - Echo 09/02 showing: "Compared to prior study 04/10/2016, pleural effusions are new. EF is down from 50-55% to 35-40%. Focal wall motion abnormalities are new. " - Appreciate cardiology consult. Will followup with recs Acute hyponatremia and mild azotemia. Not present on admission. - Likely due to pre-renal state from IV Lasix and cardiomyopathy - Followup BMP closely Suspected acute pneumonia on admission.Resolved. - Clinically seems unlikely given no significant leukocytosis, negative procalcitonin, afebrile and without any other general symptoms other than occasional cough - Hold azithromycin and ceftriaxone - Cultures negative. - Followup repeat chest x-ray in few day or as outpatient to ensure resolution Diabetes mellitus - Continue with home dose Insulin - ISS Hyperlipidemia - Fasting lipid panel wnl - Reported allergy to Statins Acetaminophen for mild pain when necessary. Bowel regimen Senna and MiraLAX scheduled and PRN. Zofran when necessary for nausea and vomiting. SubQ heparin held for now. SCDs in place. High-risk medications: IV Heparin ggt Disposition: Likely here for > 2 midnights. Dependent upon cardiac categorization findings and interventions, Will be discharged to home when medically stable. Dispo: 2-3 days pending cardiology workup Pain Evaluation: Adequate Pain Control GI Prophylaxis: Proton Pump Inhibitor VTE Prophylaxis: Sub-Q Heparin (Unfractionated) VTE Mechanical Devices: Venous Foot Pump Resuscitation Status: CPR: Attempt Resuscitation Time spent 30 minutes Attending Statement I have seen and evaluated patient at bedside addition to directly supervising care provided by resident physician Dr. Abarca. I agree with above documentation from evaluation on 09/03/2016. Patient demonstrated progressive worsening of her shortness of breath through the courseware developer, subsequently placed on BiPAP which significant improved work of breathing and her overall condition. During my evaluation patient essentially stable, optimistic about cardiac catheterization planned for tomorrow that there may be some intervention to improve her overall condition. DANNY ABARCA P DO Sep 03, 2016 06:45 Celestino Sanchez DO Sep 03, 2016 19:05
[2016-09-03] MEDS: Insulin ASPART 70/30 FlexPen 300 Unit/3 mL Inj SUBQ SCH (18:00)
[2016-09-04] VITALS (16 sets, daily range): BP systolic 98–126; BP diastolic 55–77; PULSE 84–107; RESP 12–25; O2SAT 94–100
[2016-09-04] MEDS: Sodium Chloride LOK Flush 10 mL Syringe IVFLUSH SCH ×4 (00:30→21:17)
--- NOTE | 2016-09-04 01:15 | PROG NOTE ---
[address] [address] PROGRESS NOTE PATIENT: REED TANNER : 1950 MR#: [id number] ADMIT: 08/31/2016 JOB ID: [id number] DATE: 09/03/2016 CHIEF COMPLAINT: Shortness of breath. SUBJECTIVE: The patient says breathing is better. She no longer has epigastric pain today. Yesterday, she developed atrial fibrillation with rapid ventricular response. This happened at about 9 p.m. and resolved by 2:36 a.m. on September 03, 2016. During her AFib, the patient was quite symptomatic and had increased shortness of breath. She was moved to [facility] for closer management. OBJECTIVE: Vital signs reviewed. Temperature 36.5, blood pressure 85/77, pulse 78 up to 121 beats per minute, satting 94% to 100% on 2 L up to 40% FiO2 delivered via OxyMask while in AFib. A well-nourished woman in no apparent distress. Currently on supplemental oxygen. Eyes: No scleral icterus. Heart: Normal S1, S2. No murmurs. Lungs with diminished breath sounds bilaterally; right base is worse than left. Abdomen is soft with positive bowel sounds. Extremities show trace edema. Her weight, unfortunately, does not show any improvement on medical therapy. CURRENT MEDICATIONS: 1. Crestor 5 mg daily. 2. Plavix 75 mg daily. 3. Aspirin 81 mg daily. 4. Toprol-XL 25 mg twice a day. 5. Spironolactone 25 mg daily. 6. Lasix 40 mg IV daily. 7. Heparin drip per ACS protocol. ASSESSMENT: 1. This is an unfortunate 66-year-old woman with multiple coronary artery disease risk factors, including a strong family history of coronary artery disease and a personal history of diabetes. She has previously documented significant coronary artery disease with occluded left anterior descending, 90% first diagonal branch stenosis, 80% ramus intermedius stenosis. On personal review, she had obtuse marginal disease as well. Her right coronary artery is nondominant. She underwent intervention in December 2015 to her ramus intermedius, but the remaining blood vessels were not amenable to revascularization. Unfortunately, the patient has multiple drug intolerances, so she has not been on a statin and, for whatever reason, she has not been on Plavix or aspirin either. She now comes in with worsening cardiomyopathy and mildly elevated troponin-T, as well as clinical evidence of acute decompensated heart failure and worsening left ventricular systolic function. The plan for this patient is to go for invasive ischemic evaluation to see whether her worsening cardiomyopathy is a sign of progressive coronary artery disease. I suspect that is the case. My concern is that the ramus intermedius stent has evidence of in-stent restenosis and I am also very concerned that her OM stenoses have progressed. Medical therapy for coronary artery disease. Continue aspirin for life. The patient has been started on clopidogrel for antiplatelet therapy and she is currently on a heparin drip per acute coronary syndrome protocol, for elevated troponin and for what appears to be paroxysmal atrial fibrillation. This is a new diagnosis for her. 2. Lipid management. In the past, the patient said she did poorly with statin drugs that caused muscle weakness and a rash. She has been started on Crestor. She has already received two doses as far as I can tell and has not had any adverse reactions so far. I think she would benefit from an aggressive risk factor modification program. 3. Cardiomyopathy. The patient is not eligible for neither angiotensin-converting enzyme inhibitor nor angiotensin receptor reagan due to history of throat tightness and what sounds like bronchospasm due to these medications. She was on spironolactone, but her blood pressure is borderline, so that medication is on hold. She will continue to diurese with Lasix 40 mg IV. Because of her atrial fibrillation, I also increased her Toprol-XL from 25 mg to 25 mg twice a day. 4. Paroxysmal atrial fibrillation. The patient would benefit from oral anticoagulation as an outpatient due to her paroxysmal AFib and risk of stroke. 5. Diabetes. The patient is on aspart insulin 70/30. I defer management of her very difficult to treat hypoglycemia to the primary team. 6. Anemia. Evaluation was performed and I appreciate Dr. Tolentino ordering the diagnostics. It is interesting to note that her MCV is elevated, her hematocrit is about 30% and her B12 and folate levels are pending. Her ferritin is elevated and total iron binding capacity is normal. Reticulocyte count is elevated at 3.4%, which suggests some degree of destruction of red blood cells, possible hemolysis. I am going to order haptoglobin and LDH as well as a smear. Thank you very much for the opportunity to evaluate her.
[2016-09-04] MEDS ORDERED: 0.9% Sodium Chloride 1,000 ML IV ONE (06:00)
--- NOTE | 2016-09-04 07:29 | NUR ---
HR/Prep for Cad Drafter Pt's HR has remained ST 80-90s with intermittent PACs. Pt was NPO at midnight and has 2 PIV access sites. Pt has NS running at 100ml/hr. Pt has been asked if she needs anything for anxiety and pt refused any anxiety meds and said that she doesn't feel anxious about the procedure. Was to give the benadryl ordered for 1 hour prior to procedure but was unable to get it out of the omnicell. Dayshift RN was made aware of the benadryl and will call pharmacy.
[2016-09-04] MEDS: Pantoprazole 20 mg ER24 Tablet PO SCH (07:30)
[2016-09-04] MEDS: Insulin Human REGular 300 Unit/3 mL Inj SUBQ SCH (07:30)
[2016-09-04] MEDS ORDERED: Heparin 10,000 Unit/1,000 mL NS Premix IV ONE (08:02)
[2016-09-04] MEDS ORDERED: Heparin 1,000 Units/500 mL NS Premix IV ONE (08:02)
[2016-09-04] MEDS ORDERED: 0.9% Sodium Chloride 1,000 ML ONE (08:02)
[2016-09-04 08:10] LABS: BASOPHILS % (AUTO) 0.1 % (0-3); EOSINOPHILS % (AUTO) 5.2 % (0-5); MONOCYTES % (AUTO) 9.3 % (4-12); Mean Corpuscular Hemoglobin 34.5 pg (27.0-35.0); NEUTROPHILS % (AUTO) 58.8 % (40-74); Platelet Count 219 bil/L (150-400)
[2016-09-04] MEDS: MeTOProlol XL 25 mg ER24 Tablet PO SCH ×2 (08:30→21:14)
--- NOTE | 2016-09-04 08:38 | NUR ---
Pt to [facility] 0825am pt taken to scientific laboratory supervisor, alertable but drowsy, at BS. VSS, 4L O2 NC, SPO2 mid 90's; no c/o pain but tightness across her abdomen could not give a number for this. Pt taken off bipap this morning switched to O2 NC and became slightly anxious, 1mg IV Ativan given. Per vat house laborer order NPO since midnight, Heparin gtt stopped at 0430Am per NOC report and pt started on IV NS 100/hr; 2 IV sites, consent signed in chart, 12.5mg IV Benadryl given to pt and tucked with warm blanket; more calm and relaxed looking. Report called to Karin GUALLPA RN.
[2016-09-04] MEDS ORDERED: Furosemide 10 mg/mL 2 mL Inj ONE (08:52)
--- NOTE | 2016-09-04 09:15 | NUR ---
RECIEVED FROM OIL FIELD EQUIPMENT MECHANIC. CASE ABORTED. TO [facility] BED ONE. IV STOPPED, PT HAD BM ON CATH TABLE. CLEANED, #16 5CC GOMEZ INSERTED, TOLERATED WELL ON BIPAP PER RT. PT HOB UP 30 DEGREES,
--- NOTE | 2016-09-04 09:30 | NUR ---
INTERVAL NOTE ON BIPAP, FEELING BETTER
--- NOTE | 2016-09-04 09:59 | DRSVH ---
PROCEDURE: X-RAY CHEST ONE VIEW ([id number]) INDICATIONS: CHF TECHNIQUE: One view of the chest was acquired. COMPARISON: 09/01/2016 FINDINGS: Surgical changes and devices: None. Lungs and pleura: Bilateral perihilar pulmonary edema with mild to moderate bilateral pleural effusio ns, all increased in severity since prior study. A focal area of radiodensity has developed in the le ft upper lobe laterally at the second anterior rib level. Mediastinum: Mediastinal contours appear normal. Heart size is normal. Bones and chest wall: No suspicious bony lesions. Overlying soft tissues appear unremarkable. IMPRESSION: 1. Findings appear consistent with increased pulmonary edema and bilateral pleural effusions with nor mal heart size. Possibility of underlying or superimposed bilateral pneumonia also considered. Clinic al correlation needed. Dictated by: Jose Martin M.D. on 09/04/2016 at 9:53 Approved by: Jose Martin M.D. on 09/04/2016 at 9:57
[2016-09-04] MEDS ORDERED: Furosemide Inj 100 MG in 0.9% Sodium Chloride 90 ML IV SCH (10:25)
--- NOTE | 2016-09-04 10:30 | NUR ---
INTERVAL NOTE DR CHAUDHARI HERE. CASE CANCELLED FOR TODAY
--- NOTE | 2016-09-04 10:52 | PCM.ANEPRE ---
Anesthesia Pre-Op Review Additional Comments 66 year old with CHF exacerbation, PAF, CAD who I was asked to assess by Dr. Mccarty in the setting of intra-procedural respiratory distress during an aborted coronary cath. The patient was admitted approximately 5 days ago with diagnosis of CHF exacerbation. After minimal sedation the patient developed respiratory distress upon laying supine in preparation for a coronary cath. The procedure was aborted. The patient was transferred to [facility] PACU and placed on bipap. Dr. Mccarty asked me to assess the patient and discuss options. We reviewed the CXR and assessed the patient together. Dr. Mccarty gave me a description of the patient's history, hospital stay and respiratory distress event. In the discussion it was clear that the patient was still requiring bipap and Dr. Mccarty thought she may be able to better optimize the patient with a lasix gtt. We discussed the r/b/a of proceeding in this unstable situation versus optimizing the patient. In weighing the risks and benefits, we agreed to optimize the patient prior to proceeding as Dr. Mccarty noted that the cath was not emergent. Chad Montano MD Sep 04, 2016 10:52
--- NOTE | 2016-09-04 11:00 | NUR ---
TRANSFERED TO [facility], REPORT GIVEN
--- NOTE | 2016-09-04 11:00 | NUR ---
Piece of Bipap Equipment Piece of bipap hose/weston/clip found under pt down in [facility] and clipped to front of pt chart upon return from [facility]. Pt went to clinical lab technologist off bipap and was on bedrest prior to cathlab; pt able to turn ind in bed and no c/o of pain to area before procedure in clinical lab technologist. Bipap was put on pt down in [facility]. Red seble or indentation on L buttock of pt upon return from [facility]. Will continue to monitor with frequent rounds.
--- NOTE | 2016-09-04 11:06 | NUR ---
Return [facility] Pt returned from [facility]; arousable but calm, Bipap 50% started, SPO2 98%, hooked up to MP30 HR SR 92, BP 122/67. No c/o pain at this time. Mcwilliams cath in place, draining to gravity. New orders for IV Lasix gtt and Heparin gtt to start. Will continue to monitor with frequent rounds.
[2016-09-04] MEDS: Furosemide Inj 100 MG in 0.9% Sodium Chloride 90 ML IV SCH ×2 (11:35→21:14)
[2016-09-04] MEDS ORDERED: Glucose 40% Oral Gel 15 Gm Tube PO PRN (12:35)
[2016-09-04] MEDS: Heparin 25K Unit/500mL 0.45 NS 25,000 UNIT in IV Premix 1 EACH IV SCH (12:38)
[2016-09-04] MEDS: Heparin 5,000 Unit/mL Inj IVPUSH PRN (12:45)
--- NOTE | 2016-09-04 14:00 | PCM.PNMED ---
Subjective Date of Service Sep 04, 2016 Subjective 66 year old female with h/o of ischemic cardiomyopathy, IDDM, hyperlipidemia, presented to the ED with c/o worsening SOB x 1 day. She c/o associated peripheral edema, orthopnea, clear productive cough for 2 days, orthopnea. Pt denies CP, fever, chills. She had similar symptoms in December at which time she was diagnosed with CHF. She has been taking medications for her CHF and states she has been doing well in this regard. She does not normally use oxygen at home. Overnight events: No acute overnight events. Patient was scheduled for cath today, but developed flash pulmonary edema, so was not able to get procedure done. She is currently short of breath requiring bipap. She mentions she has chronic diarrhea for 2 years, which she says has been tested for c. diff in the past which was negative. She also mentions chronic lower extremity muscle tightness for several years. She denies headache , dizziness, fever, chills, nausea, vomiting, chest pain, abdominal pain, constipation. Exam Vital Signs Vital Sign - Last Date Time Temp Pulse Resp B/P Pulse Ox O2 Delivery O2 Flow Rate FiO2 09/04/16 04:45 83 19 98/57 97 40 09/04/16 03:43 36.6 BiPAP 09/03/16 21:10 3.00 Intake and Output 09/03/16 09/03/16 09/04/16 Cumulative From/Thru 15:00 23:00 07:00 08/30/16 20:58 - 09/04/16 06:20 Intake Total 1812 ml 700 ml 7276 ml Output Total 1350 ml 1000 ml 7975 ml Balance 462 ml -300 ml -699 ml Intake Oral 1390 ml 700 ml 4479 ml IV Total 422 ml 2797 ml Output Urine Total 1350 ml 300 ml 7275 ml Urine/Stool Mix 700 ml 700 ml # Voids 4 2 7 # Bowel Movements 10 1 15 Exam General: Patient in no acute distress, well-developed, well-nourished, appropriately interactive HEENT: Normocephalic, atraumatic. External ears without defect. Pupils equal, round, and reactive to light and accommodation. Anicteric sclerae, moist conjunctivae Neck: Supple with full range of motion. No jugular venous distension. No bruits. No lymphadenopathy or thyromegaly. Cardiovascular: Regular rate and rhythm with no murmurs, rubs, or gallops appreciated Pulmonary: Clear to auscultation bilaterally, no wheezes, rhonchi. On Bipap currently. Abdomen: Bowel tones present. Soft, nontender, but mild discomfort, nondistended. No hepatosplenomegaly or masses appreciated. Extremities: 1+ edema bilaterally, No clubbing, cyanosis Skin: Normal temperature, turgor, and texture; no rash, ulcers, or subcutaneous nodules appreciated. Neurological: Cranial nerves grossly intact. Normal muscle strength, tone, and bulk. Psychiatric: Normal mood and affect. Alert and oriented to person, place, and time. Lab and Diagnostics Laboratory Tests 72 Hours Test 09/01/16 06:58 09/01/16 10:10 09/02/16 06:20 09/02/16 17:21 Prothrombin Time 11.2sec (8.1-12.5) Prothromb Time International Ratio 1.05ratio Activated Partial Thromboplast Time 66.7sec (22.8-33.0) 25.2sec (22.8-33.0) 24.9sec (22.8-33.0) Sodium Level 137mEq/L (134-144) 129mEq/L (134-144) Potassium Level 3.8mEq/L (3.5-5.2) 3.9mEq/L (3.5-5.2) Chloride Level 97mEq/L (97-108) 91mEq/L (97-108) Carbon Dioxide Level 20mmol/L (18-29) 23mmol/L (18-29) Blood Urea Nitrogen 24mg/dL (8-27) 30mg/dL (8-27) Creatinine 0.82mg/dL (0.57-1.00) 0.90mg/dL (0.57-1.00) Estimat Glomerular Filtration Rate 100mL/min (>59) 90mL/min (>59) Glucose Level 177mg/dL (60-99) 257mg/dL (60-99) Calcium Level 8.9mg/dL (8.5-10.1) 8.8mg/dL (8.5-10.1) Magnesium Level 1.9mg/dL (1.6-2.6) 1.9mg/dL (1.6-2.6) Pro-B-Type Natriuretic Peptide 2535pg/mL (0-301) Procalcitonin 0.06ng/mL (0.00-0.08) 0.12ng/mL (0.00-0.08) Troponin T 0.077ug/L (0.0-0.011) White Blood Count 7.2th/mm3 (3.8-10.1) Red Blood Count 2.66mil/mm3 (3.90-5.20) Hemoglobin 9.0g/dL (12.0-15.6) Hematocrit 26.7% (35.0-46.0) Mean Corpuscular Volume 100.4fL (81-100) Mean Corpuscular Hemoglobin 33.8pg (27.0-35.0) Mean Corpuscular Hemoglobin Concent 33.7% (32.0-37.0) Red Cell Distribution Width 12.2% (12.3-15.4) Platelet Count 183bil/L (150-400) Neutrophils (%) (Auto) 53.9% (40-74) Lymphocytes (%) (Auto) 32.0% (14-46) Monocytes (%) (Auto) 10.4% (4-12) Eosinophils (%) (Auto) 3.0% (0-5) Basophils (%) (Auto) 0.4% (0-3) Test 09/02/16 21:15 09/02/16 22:20 09/03/16 05:10 09/03/16 08:45 Urine Color Straw (YELLOW) Urine Appearance Hazy (CLEAR,HAZY) Urine pH 5.0 (5.0-8.0) Urine Specific [place] 1.008 (1.003-1.035) Urine Protein Negativemg/dL (NEG,TRACE) Urine Glucose (UA) Negativemg/dL (NEGATIVE) Urine Ketones Negativemg/dL (NEGATIVE) Urine Occult Blood Negative (NEGATIVE) Urine Nitrite Negative (NEGATIVE) Urine Bilirubin Negative (NEGATIVE) Urine Urobilinogen Normalmg/dL (NORMAL) Urine Leukocyte Esterase Negative (NEGATIVE) Urine RBC 0-2/hpf (0-2) Urine WBC 0-5/hpf (0-5) Urine Epithelial Cells Occasional/hpf (NONE-MOD) Urine Crystals None seen (NONE SEEN) Urine Bacteria Few/hpf (NONE-FEW) Urine Hyaline Casts Rare/lpf (NONE) Urine Granular Casts None seen (NONE SEEN) Urine Waxy Casts None seen (NONE SEEN) Urine Red Blood Cell Casts None seen (NONE SEEN) Urine White Blood Cell Casts None seen (NONE SEEN) Urine Mucus Present (None Seen) Urine Trichomonas None seen (NONE SEEN) Urine Yeast None (NONE SEEN) Urinalysis Comment None Urine Culture Reflexed Not indicated White Blood Count 7.3th/mm3 (3.8-10.1) 6.5th/mm3 (3.8-10.1) Red Blood Count 2.88mil/mm3 (3.90-5.20) 2.77mil/mm3 (3.90-5.20) Hemoglobin 9.9g/dL (12.0-15.6) 9.3g/dL (12.0-15.6) 10.0g/dL (12.0-15.6) Hematocrit 29.0% (35.0-46.0) 27.8% (35.0-46.0) 29.7% (35.0-46.0) Mean Corpuscular Volume 100.7fL (81-100) 100.4fL (81-100) Mean Corpuscular Hemoglobin 34.4pg (27.0-35.0) 33.6pg (27.0-35.0) Mean Corpuscular Hemoglobin Concent 34.1% (32.0-37.0) 33.5% (32.0-37.0) Red Cell Distribution Width 12.2% (12.3-15.4) 12.2% (12.3-15.4) Platelet Count 205bil/L (150-400) 205bil/L (150-400) Neutrophils (%) (Auto) 52.4% (40-74) 59.5% (40-74) Lymphocytes (%) (Auto) 33.0% (14-46) 29.7% (14-46) Monocytes (%) (Auto) 9.3% (4-12) 8.7% (4-12) Eosinophils (%) (Auto) 4.9% (0-5) 1.5% (0-5) Basophils (%) (Auto) 0.3% (0-3) 0.3% (0-3) Activated Partial Thromboplast Time 75.3sec (22.8-33.0) 75.1sec (22.8-33.0) Sodium Level 131mEq/L (134-144) 132mEq/L (134-144) Potassium Level 4.4mEq/L (3.5-5.2) 4.5mEq/L (3.5-5.2) Chloride Level 91mEq/L (97-108) 95mEq/L (97-108) Carbon Dioxide Level 24mmol/L (18-29) 23mmol/L (18-29) Blood Urea Nitrogen 27mg/dL (8-27) 28mg/dL (8-27) Creatinine 1.08mg/dL (0.57-1.00) 0.97mg/dL (0.57-1.00) Estimat Glomerular Filtration Rate 73mL/min (>59) 83mL/min (>59) Glucose Level 393mg/dL (60-99) 304mg/dL (60-99) Lactic Acid Level 2.8mmol/L (0.4-2.0) Calcium Level 8.8mg/dL (8.5-10.1) 8.8mg/dL (8.5-10.1) Magnesium Level 1.8mg/dL (1.6-2.6) Total Bilirubin 0.3mg/dL (0.0-1.2) Aspartate Amino Transf (AST/SGOT) 42U/L (0-50) Alanine Aminotransferase (ALT/SGPT) 39U/L (0-32) Alkaline Phosphatase 106U/L (25-165) Troponin T 0.061ug/L (0.0-0.011) Total Protein 6.5g/dL (6.4-8.4) Albumin 3.7g/dL (3.4-5.0) Reticulocyte Count,Calculated 3.4% (0.6-2.6) Iron Level 57ug/dL (35-150) Total Iron Binding Capacity 253ug/dL (250-450) Percent Iron Saturation 23%sat (15-50) Unsaturated Iron Binding 196.1ug/dL Ferritin 401ng/mL (13-150) Procalcitonin 0.11ng/mL (0.00-0.08) Test 09/03/16 12:14 09/03/16 20:00 09/04/16 02:40 Activated Partial Thromboplast Time 52.5sec (22.8-33.0) 54.4sec (22.8-33.0) 70.2sec (22.8-33.0) Hematology Comments Lactate Dehydrogenase 244U/L (100-190) Result Diagram: 09/03/16 0845 09/03/16 0510 X-Rays, CTs and MRIs Date of Service: 09/01/16 0600 PROCEDURE: X-RAY CHEST, TWO VIEWS ([id number]) IMPRESSION: Slight decrease in pulmonary edema as well as improvement involving the right lung base with persistent consolidation involving the left lung base. Small pleural effusion. Dictated by: Donovan Nichols RRA Interpreted: Shayy Styles MD on 09/01/2016 at 9:37 Approved by: Shayy Styles M.D. on 09/01/2016 at 14:07 Cardiac Echo Impressions Date of Service: 09/02/16 0735 Echocardiogram Report Interpretation Summary NSR. Worsening cardiomyopathy. Normal LV size and upper limit of normal concentric LVH. There is mid- inferoseptal, mid-anteroseptal, distal septal, mid-inferolateral and basal anterolateral hypokinesis. There is basal anterior, mid-anterior, distal- anterior, mid-anterolateral akinesis. Otherwise normal wall motion. EF is 35- 40%. Stage II diastolic dysfunction. Moderate bilateral pleural effusions. Compared to prior study 04/10/2016, pleural effusions are new. EF is down from 50-55% to 35-40%. Focal wall motion abnormalities are new. Reading Physician:03:59 PM Assessment & Plan 66 year old female with h/o of ischemic cardiomyopathy, IDDM, hyperlipidemia, presented to the ED with c/o worsening SOB x 1 day. Chronic Ischemic Cardiomyopathy, present on admission, active. - Appreciate cardiology consult. Will followup with recommendations - Troponins from 08/30 0.033 to 09/02 0.061, with high of 0.091 on 08/31. - Start ASA, Plavix, Heparin ggt,. - Patient was to have cardiac cath 09/04/16, however before starting procedure, patient developed flash pulmonary edema. Patient started on Lasix drip and placed on bipap for desaturation. Will aggressively diurese patient for cath planned for 09/06/16. Acute decompensated Heart Failure with reduced ejection fraction, present on admission.Active. - 09/04/16 Lasix drip - Echo 09/02 showing: "Compared to prior study 04/10/2016, pleural effusions are new. EF is down from 50-55% to 35-40%. Focal wall motion abnormalities are new. " - Appreciate cardiology consult. Will followup with recommendations Acute hyponatremia and mild azotemia. Not present on admission. - Likely due to pre-renal state from IV Lasix and cardiomyopathy - Followup BMP closely Suspected acute pneumonia on admission.Resolved. - Clinically seems unlikely given no significant leukocytosis, negative procalcitonin, afebrile and without any other general symptoms other than occasional cough - Hold azithromycin and ceftriaxone - Cultures negative. - Followup repeat chest x-ray in few day or as outpatient to ensure resolution Diabetes mellitus - Patient has poor glucose while in the hospital ranging from 200-300's. - 09/04/16 switched from home insulin to Lantus 25 units at night with medium dose correction scale. - HgA1c 8.2 on 08/31/16 Hyperlipidemia - Fasting lipid panel wnl - Reported allergy to Statins, but is tolerating Crestor. Acetaminophen for mild pain when necessary. Bowel regimen Senna and MiraLAX scheduled and PRN. Zofran when necessary for nausea and vomiting. SubQ heparin held for now. SCDs in place. High-risk medications: IV Heparin ggt Disposition: Likely here for > 2 midnights. Dependent upon cardiac cath findings and interventions, Will be discharged to home when medically stable. Dispo: 3-4 days pending cardiology workup Pain Evaluation: Adequate Pain Control GI Prophylaxis: Proton Pump Inhibitor VTE Prophylaxis: Sub-Q Heparin (Unfractionated) VTE Mechanical Devices: Venous Foot Pump Resuscitation Status: CPR: Attempt Resuscitation Attending Statement The patient was seen and examined together with Dr. Young on 09/04/2016 and I agree with the history, exam and plan as outlined in the note above. . Dinesh Young DO Sep 04, 2016 06:42 Carmelo Ag MD Sep 04, 2016 17:22
--- NOTE | 2016-09-04 14:22 | PROG NOTE ---
[address] [address] PROGRESS NOTE PATIENT: REED TANNER : 1950 MR#: [id number] ADMIT: 08/31/2016 JOB ID: [id number] DATE: 09/04/2016 CHIEF COMPLAINT: Shortness of breath. SUBJECTIVE: The patient was taken to the cardiac cath lab manager today for elective cardiac catheterization. Unfortunately, she developed flash pulmonary edema after her Lasix was held for cardiac catheterization and she was prehydrated with normal saline. The case was canceled and I did not even obtain vascular access. She received 40 mg of Lasix IV in the lab with good urinary output. She also had good response to BiPAP. Mcwilliams catheter was placed. She has no complaints right now and her is at the bedside. OBJECTIVE: Vital signs: Temperature 36.9, blood pressure 98/57 up to 126/77. Her heart rate is 12 breaths per minute right now, but was up to 23 breaths per minute in distress. She is satting 100% on BiPAP. Well-nourished woman, no apparent distress. Eyes: No scleral icterus. Neck supple. No carotid bruits. Heart: Normal S1, S2. No murmurs, rubs, or gallops. Lungs with diminished breath sounds bilaterally. Right side worse than left. Abdomen was soft, positive bowel sounds. Extremities with moderate edema bilaterally to knees. I's and O's demonstrate that unfortunately despite attempts at diuresis she is in more than out by 562 mL and her weight has not improved between yesterday and today. CURRENT MEDICATIONS: 1. Aspirin 81 mg daily. 2. Plavix 75 mg daily. 3. Crestor 5 mg daily. 4. Lasix drip 10 mg/hour. 5. Toprol-XL 25 mg twice a day. 6. Sliding scale insulin regular. 7. Aspart 70/30 with dinner. 8. Heparin drip per ACS protocol. 9. Pantoprazole. LABORATORIES: Reviewed. Significant for anemia. Hematocrit is 29%. MCV is 101. Haptoglobin is pending. Hematology comments for the smear showed that there is no evidence of schistocytes. LDH is elevated at 244. Vitamin B12 and folate levels are pending. ASSESSMENT AND PLAN: This is a 66-year-old woman with acute decompensated heart failure. ADHF secondary to ICM: We are attempting to diurese her. We are going to start her on a Lasix drip. Her catheterization was delayed until such time that she is a little bit more stable. Currently requiring bypap. Pt and are on board with the plan, and understand the rationale for delaying LHC. CM: because of her borderline blood pressure she is not on spironolactone. PAF: Because of her history of paroxysmal AFib, she is on heparin drip. We cannot start oral anticoagulation yet because she is pending for cardiac catheterization. CAD: Given fairly recent deployment of drug-eluting stent to ramus intermedius in December, I took the liberty of restarting dual anti-platelet therapy as well. Diabetes: Defer workup to hospitalist team. I will discuss with them whether maybe we can optimize her aspart 70/30 insulin that she gives herself 10 units every night and instead give her long-acting Lantus and then change her regular insulin sliding scale to Lispro sliding scale. Dyslipidemia, patient was intolerant to statins in the past but she seems to be doing okay on Crestor. Thank you very much for the opportunity to participate in her care. KAREN
--- NOTE | 2016-09-04 15:58 | NUR ---
Bipap/Oxymask/O2 NC Pt came back from [facility] today on Bipap at 50%; SPO2 98-100%. As pt became more awake, requesting food, taken off Bipap and put on Oxymask 8LO2, SPO2 mid 90's. Pt ate afternoon meal, put on 4L O2 NC, SPO2 remains 98%. No s/s of distress. Will continue to monitor with frequent rounds.
[2016-09-04] MEDS ORDERED: MeTOProlol XL 25 mg ER24 Tablet PO ONE (17:10)
[2016-09-04] MEDS: Insulin LISPRO 300 Unit/3 mL Inj SUBQ SCH ×2 (17:43→21:17)
[2016-09-04] MEDS ORDERED: Insulin GLARgine 100 Unit/mL Syringe SUBQ SCH (21:00)
[2016-09-04] MEDS: LORazepam 0.5 mg Tablet PO PRN (22:30)
[2016-09-05] VITALS (12 sets, daily range): BP systolic 91–106; BP diastolic 53–89; PULSE 78–97; RESP 18–33; O2SAT 95–100
--- NOTE | 2016-09-05 05:21 | NUR ---
BIPAP/IV/Heparin gtt/Ativan/TELE Pt did well with BIPAP therapy tonight. Settings unchanged at 40% FiO2 EPAP/IPAP 20/08. The IV in the patient's right hand is on its way out. Message left with IV therapy to start another IV then DC the IV in the right hand. Heparin gtt resulted as within range twice with one pending currently and next scheduled as AM draws. Ativan worked well for the patient's anxiety today; consulted and standing order for Ativan PO 0.5-1mg PRN Q6H obtained. At 0446 the Patient had a 46 second run of Bigem[place], pt then spontaneously converted back to SR in the 80-90s.
[2016-09-05] MEDS: Furosemide Inj 100 MG in 0.9% Sodium Chloride 90 ML IV SCH (06:33)
[2016-09-05 07:08] LABS: Vitamin B12 1039 pg/mL (211-946)
[2016-09-05] MEDS: Insulin LISPRO 300 Unit/3 mL Inj SUBQ SCH ×4 (08:00→21:17)
[2016-09-05] MEDS: Pantoprazole 20 mg ER24 Tablet PO SCH (08:44)
[2016-09-05] MEDS: MeTOProlol XL 25 mg ER24 Tablet PO SCH ×2 (08:44→21:09)
[2016-09-05] MEDS: Furosemide 10 mg/mL 4 mL Inj IVPUSH SCH ×2 (08:49→21:09)
[2016-09-05] MEDS: Sodium Chloride LOK Flush 10 mL Syringe IVFLUSH SCH ×2 (08:49→17:49)
[2016-09-05 08:53] LABS: BASOPHILS % (AUTO) 0.1 % (0-3); EOSINOPHILS % (AUTO) 3.6 % (0-5); Mean Corpuscular Hemoglobin 34.7 pg (27.0-35.0); Mean Corpuscular Volume 101.8 fL (81-100); NEUTROPHILS % (AUTO) 49.7 % (40-74); Platelet Count 231 bil/L (150-400)
--- NOTE | 2016-09-05 09:01 | PROG NOTE ---
[address] [address] PROGRESS NOTE PATIENT: REED TANNER : 1950 MR#: [id number] ADMIT: 08/31/2016 JOB ID: [id number] DATE: 09/05/2016 CARDIOLOGY PROGRESS NOTE: SUBJECTIVE: The patient is a 66-year-old female with known severe coronary disease and ischemic cardiomyopathy with a known occluded LAD and 90% stenosis in a diagonal that has been felt not to be amenable to revascularization. She had a previous ejection fraction around 35% that improved to around 50% after PCI to the trifurcation marginal last December. More recently, she has stopped her medications including her Plavix and aspirin and was admitted with increasing dyspnea with a troponin that peaked at 0.09. Repeat echocardiography now shows an ejection fraction again around 35%. She developed a brief self-limited atrial fibrillation that was treated with increasing her metoprolol and initiating IV heparin. She was scheduled for cardiac catheterization yesterday but this was aborted because of severe dyspnea due to pulmonary edema, and she was started on an IV Lasix drip. This morning, she notes significant improvement in her dyspnea, although still does not feel quite back to baseline. She is uncertain whether this worsened while lying flat. She denies any chest discomfort. Has had no sense of any lightheadedness or palpitations. She notes that she had gained around 10 pounds at home over the last several weeks. PHYSICAL EXAMINATION: A middle-aged female who appears quite comfortable on a BiPAP mask. BP 105/60, heart rate 85. Oxygen saturation is 95% while on the BiPAP, although drops down into the high 80s when she takes it off to speak. She had a net diuresis yesterday of 2.6 L and is down 500 mL today. Her weight is down 2.4 kg. Skin: Warm and dry. Lungs: Reduced breath sounds without any appreciable rales or wheeze. CV: Regular rate and rhythm without any appreciable murmurs or gallops. JVP is 6-7 cm. Abdomen: Soft, nondistended. Extremities: Warm and trace bilateral pitting edema. LABORATORY: Pending. TELEMETRY: Shows sinus rhythm with occasional sinus tachycardia but no atrial fibrillation. IMPRESSION: 1. Ischemic cardiomyopathy with decompensated congestive heart failure, possibly due to [id number] myocardial infarction. She appears much better compensated today with a vigorous diuresis, although I suspect that she continues to have some evidence of volume overload. Yet, I would discontinue the continuous IV furosemide drip and replace it with bolus IV furosemide in an effort to reduce the rate of diuresis and avoid hypotension. Electrolytes and kidney function will need to be assessed today and repleted as appropriate. She appears to be maximally afterload reduced and I would attempt to wean her off of BiPAP today but will defer this to the hospitalist. If she continues to do well clinically, I would anticipate proceeding with the previously anticipated cardiac catheterization to reassess the trifurcation marginal. A right heart catheterization may be helpful as well to reestablish her volume state given her significant dyspnea and hypoxia to ensure there is not some other underlying issue. I will keep her n.p.o. after midnight in anticipation of doing a cardiac catheterization. 2. Diabetes. Per the hospitalist. I would like to see her blood sugars somewhat better controlled. 3. Hyponatremia. Will need to be followed. 4. Anemia. Will check a CBC tomorrow prior to catheterization. 5. Atrial fibrillation. No evidence of any recurrence. 6. Hyperlipidemia. Appears to be tolerating her rosuvastatin adequately, and I would continue this for now. PLAN: 1. Discontinue continuous IV infusion of furosemide and replace with furosemide boluses of 40 mg b.i.d. 2. Check electrolytes and renal function today maintaining potassium greater than 4 and magnesium greater than 2. 3. Attempt to wean off BiPAP today. 4. Anticipate cardiac catheterization tomorrow if clinically stable. TIME SPENT: I spent 42 minutes reviewing the patient's medical record, examining the patient and documenting such. [facility] HOSPITALMaury
[2016-09-05] MEDS: Heparin 25K Unit/500mL 0.45 NS 25,000 UNIT in IV Premix 1 EACH IV SCH (13:01)
[2016-09-05] MEDS: LORazepam 0.5 mg Tablet PO PRN (16:38)
[2016-09-05] MEDS ORDERED: Potassium Chloride 20 mEq SR Tablet PO ONE (17:00)
[2016-09-05] MEDS: Heparin 5,000 Unit/mL Inj IVPUSH PRN (18:00)
--- NOTE | 2016-09-05 18:13 | NUR ---
Remains 02-dependent, dropping sats quickly to low 80s on RA while transitioning to NC for dinner. On bipap for a while this afternoon due to feeling anxious and SOB, Oxymask most of the day prior. PO Ativan helpful for anxiety. Heparin gtt per protocol, adjusting per PTTs; next at 2300. Denies pain. Up to side of bed for meals, not tolerating activity well. Plan for heart cath tomorrow, NPO after midnight.
--- NOTE | 2016-09-05 18:31 | PCM.PNMED ---
Subjective Date of Service Sep 05, 2016 Subjective Ms. Darling Medel is a pleasant 66 year old lady with history of ischemic cardiomyopathy, Insulin dependant Diabetes II, hyperlipidemia, presented to the ED with c/o worsening shortness of breath for 1 day. She c/o associated peripheral edema, orthopnea, clear productive cough for 2 days. She is currently being weened off of BiPAP and treated with aggressive diuretics, with plan for cardiac catheterization tomorrow. Overnight events: None. Patient reports feeling better today with less shortness of breath. She reports feeling more energized today. She denies fever, chills, cough, chest pain, nausea, vomiting, abdominal pain, constipation. Reports some mild diarrhea yesterday. Patient is expressing concerns with use of statins due to chronic muscle soreness and previous difficulty with statins. Exam Vital Signs Vital Sign - Last Date Time Temp Pulse Resp B/P Pulse Ox O2 Delivery O2 Flow Rate FiO2 09/05/16 04:35 36.4 85 22 105/60 95 BiPAP 09/05/16 04:17 40 09/04/16 20:01 6.50 Intake and Output 09/04/16 09/04/16 09/05/16 Cumulative From/Thru 15:00 23:00 07:00 08/30/16 20:58 - 09/05/16 06:54 Intake Total 269 ml 1043 ml 1015 ml 9603 ml Output Total 3650 ml 1550 ml 39366 ml Balance 269 ml -2607 ml -535 ml -3572 ml Intake Oral 545 ml 600 ml 5624 ml IV Total 269 ml 498 ml 415 ml 3979 ml Output Urine Total 3650 ml 1550 ml 54030 ml Urine/Stool Mix 700 ml # Voids 7 # Bowel Movements 1 1 1 18 Exam General: Patient in no acute distress, well-developed, well-nourished, appropriately interactive HEENT: Normocephalic, atraumatic. External ears without defect. Pupils equal, round, and reactive to light and accommodation. Anicteric sclerae, moist conjunctivae Neck: Supple with full range of motion. No jugular venous distension. No bruits. No lymphadenopathy or thyromegaly. Cardiovascular: Regular rate and rhythm with no murmurs, rubs, or gallops appreciated Pulmonary: Clear to auscultation bilaterally, no wheezes, rhonchi. On Bipap currently. Abdomen: Bowel tones present. Soft, nontender, but mild discomfort, nondistended. No hepatosplenomegaly or masses appreciated. Extremities: 1+ edema bilaterally, No clubbing, cyanosis Skin: Normal temperature, turgor, and texture; no rash, ulcers, or subcutaneous nodules appreciated. Neurological: Cranial nerves grossly intact. Normal muscle strength, tone, and bulk. Psychiatric: Normal mood and affect. Alert and oriented to person, place, and time. IVs and Medications Medications Reviewed: Medications were reviewed in detail Lab and Diagnostics Laboratory Tests 72 Hours Test 09/02/16 17:21 09/02/16 21:15 09/02/16 22:20 09/03/16 05:10 Activated Partial Thromboplast Time 24.9sec (22.8-33.0) 75.3sec (22.8-33.0) 75.1sec (22.8-33.0) Urine Color Straw (YELLOW) Urine Appearance Hazy (CLEAR,HAZY) Urine pH 5.0 (5.0-8.0) Urine Specific [place] 1.008 (1.003-1.035) Urine Protein Negativemg/dL (NEG,TRACE) Urine Glucose (UA) Negativemg/dL (NEGATIVE) Urine Ketones Negativemg/dL (NEGATIVE) Urine Occult Blood Negative (NEGATIVE) Urine Nitrite Negative (NEGATIVE) Urine Bilirubin Negative (NEGATIVE) Urine Urobilinogen Normalmg/dL (NORMAL) Urine Leukocyte Esterase Negative (NEGATIVE) Urine RBC 0-2/hpf (0-2) Urine WBC 0-5/hpf (0-5) Urine Epithelial Cells Occasional/hpf (NONE-MOD) Urine Crystals None seen (NONE SEEN) Urine Bacteria Few/hpf (NONE-FEW) Urine Hyaline Casts Rare/lpf (NONE) Urine Granular Casts None seen (NONE SEEN) Urine Waxy Casts None seen (NONE SEEN) Urine Red Blood Cell Casts None seen (NONE SEEN) Urine White Blood Cell Casts None seen (NONE SEEN) Urine Mucus Present (None Seen) Urine Trichomonas None seen (NONE SEEN) Urine Yeast None (NONE SEEN) Urinalysis Comment None Urine Culture Reflexed Not indicated White Blood Count 7.3th/mm3 (3.8-10.1) 6.5th/mm3 (3.8-10.1) Red Blood Count 2.88mil/mm3 (3.90-5.20) 2.77mil/mm3 (3.90-5.20) Hemoglobin 9.9g/dL (12.0-15.6) 9.3g/dL (12.0-15.6) Hematocrit 29.0% (35.0-46.0) 27.8% (35.0-46.0) Mean Corpuscular Volume 100.7fL (81-100) 100.4fL (81-100) Mean Corpuscular Hemoglobin 34.4pg (27.0-35.0) 33.6pg (27.0-35.0) Mean Corpuscular Hemoglobin Concent 34.1% (32.0-37.0) 33.5% (32.0-37.0) Red Cell Distribution Width 12.2% (12.3-15.4) 12.2% (12.3-15.4) Platelet Count 205bil/L (150-400) 205bil/L (150-400) Neutrophils (%) (Auto) 52.4% (40-74) 59.5% (40-74) Lymphocytes (%) (Auto) 33.0% (14-46) 29.7% (14-46) Monocytes (%) (Auto) 9.3% (4-12) 8.7% (4-12) Eosinophils (%) (Auto) 4.9% (0-5) 1.5% (0-5) Basophils (%) (Auto) 0.3% (0-3) 0.3% (0-3) Sodium Level 131mEq/L (134-144) 132mEq/L (134-144) Potassium Level 4.4mEq/L (3.5-5.2) 4.5mEq/L (3.5-5.2) Chloride Level 91mEq/L (97-108) 95mEq/L (97-108) Carbon Dioxide Level 24mmol/L (18-29) 23mmol/L (18-29) Blood Urea Nitrogen 27mg/dL (8-27) 28mg/dL (8-27) Creatinine 1.08mg/dL (0.57-1.00) 0.97mg/dL (0.57-1.00) Estimat Glomerular Filtration Rate 73mL/min (>59) 83mL/min (>59) Glucose Level 393mg/dL (60-99) 304mg/dL (60-99) Lactic Acid Level 2.8mmol/L (0.4-2.0) Calcium Level 8.8mg/dL (8.5-10.1) 8.8mg/dL (8.5-10.1) Magnesium Level 1.8mg/dL (1.6-2.6) Total Bilirubin 0.3mg/dL (0.0-1.2) Aspartate Amino Transf (AST/SGOT) 42U/L (0-50) Alanine Aminotransferase (ALT/SGPT) 39U/L (0-32) Alkaline Phosphatase 106U/L (25-165) Troponin T 0.061ug/L (0.0-0.011) Total Protein 6.5g/dL (6.4-8.4) Albumin 3.7g/dL (3.4-5.0) Reticulocyte Count,Calculated 3.4% (0.6-2.6) Iron Level 57ug/dL (35-150) Total Iron Binding Capacity 253ug/dL (250-450) Percent Iron Saturation 23%sat (15-50) Unsaturated Iron Binding 196.1ug/dL Ferritin 401ng/mL (13-150) Vitamin B12 Level 1039pg/mL (211-946) Procalcitonin 0.11ng/mL (0.00-0.08) Test 09/03/16 08:45 09/03/16 12:14 09/03/16 20:00 09/04/16 02:40 Hemoglobin 10.0g/dL (12.0-15.6) Hematocrit 29.7% (35.0-46.0) Activated Partial Thromboplast Time 52.5sec (22.8-33.0) 54.4sec (22.8-33.0) 70.2sec (22.8-33.0) Haptoglobin 227mg/dL (34-200) Hematology Comments Lactate Dehydrogenase 244U/L (100-190) Test 09/04/16 07:50 09/04/16 11:40 09/04/16 19:50 09/05/16 02:00 White Blood Count 7.4th/mm3 (3.8-10.1) Red Blood Count 2.90mil/mm3 (3.90-5.20) Hemoglobin 10.0g/dL (12.0-15.6) Hematocrit 29.3% (35.0-46.0) Mean Corpuscular Volume 101.0fL (81-100) Mean Corpuscular Hemoglobin 34.5pg (27.0-35.0) Mean Corpuscular Hemoglobin Concent 34.1% (32.0-37.0) Red Cell Distribution Width 12.5% (12.3-15.4) Platelet Count 219bil/L (150-400) Neutrophils (%) (Auto) 58.8% (40-74) Lymphocytes (%) (Auto) 26.2% (14-46) Monocytes (%) (Auto) 9.3% (4-12) Eosinophils (%) (Auto) 5.2% (0-5) Basophils (%) (Auto) 0.1% (0-3) Sodium Level 130mEq/L (134-144) Potassium Level 4.4mEq/L (3.5-5.2) Chloride Level 92mEq/L (97-108) Carbon Dioxide Level 23mmol/L (18-29) Blood Urea Nitrogen 25mg/dL (8-27) Creatinine 0.88mg/dL (0.57-1.00) Estimat Glomerular Filtration Rate 92mL/min (>59) Glucose Level 212mg/dL (60-99) Calcium Level 9.0mg/dL (8.5-10.1) Total Bilirubin 0.4mg/dL (0.0-1.2) Aspartate Amino Transf (AST/SGOT) 34U/L (0-50) Alanine Aminotransferase (ALT/SGPT) 43U/L (0-32) Alkaline Phosphatase 109U/L (25-165) Total Protein 6.2g/dL (6.4-8.4) Albumin 3.5g/dL (3.4-5.0) Activated Partial Thromboplast Time 23.5sec (22.8-33.0) 60.0sec (22.8-33.0) 61.0sec (22.8-33.0) Result Diagram: 09/04/16 0756 09/04/16 0750 X-Rays, CTs and MRIs Date of Service: 09/01/16 0600 PROCEDURE: X-RAY CHEST, TWO VIEWS ([id number]) IMPRESSION: Slight decrease in pulmonary edema as well as improvement involving the right lung base with persistent consolidation involving the left lung base. Small pleural effusion. Dictated by: Donovan Nichols RRA Interpreted: Shayy Styles MD on 09/01/2016 at 9:37 Approved by: Shayy Styles M.D. on 09/01/2016 at 14:07 Cardiac Echo Impressions Date of Service: 09/02/16 0735 Echocardiogram Report Interpretation Summary NSR. Worsening cardiomyopathy. Normal LV size and upper limit of normal concentric LVH. There is mid- inferoseptal, mid-anteroseptal, distal septal, mid-inferolateral and basal anterolateral hypokinesis. There is basal anterior, mid-anterior, distal- anterior, mid-anterolateral akinesis. Otherwise normal wall motion. EF is 35- 40%. Stage II diastolic dysfunction. Moderate bilateral pleural effusions. Compared to prior study 04/10/2016, pleural effusions are new. EF is down from 50-55% to 35-40%. Focal wall motion abnormalities are new. Reading Physician:03:59 PM Assessment & Plan Ms. Darling Medel is a pleasant 66 year old lady with history of ischemic cardiomyopathy, Insulin dependant Diabetes II, hyperlipidemia, presented to the ED with c/o worsening shortness of breath for 1 day. She c/o associated peripheral edema, orthopnea, clear productive cough for 2 days. She is currently being weened off of BiPAP and treated with aggressive diuretics, with plan for cardiac catheterization tomorrow. Acute decompensated Heart Failure with reduced ejection fraction, present on admission.Active. - Lasix drip transitioned to PO today. - Echo 09/02 showing: "Compared to prior study 04/10/2016, pleural effusions are new. EF is down from 50-55% to 35-40%. Focal wall motion abnormalities are new. " - Appreciate cardiology consult. Will followup with recommendations. - Cath planned for 09/06/16. Chronic Ischemic Cardiomyopathy, present on admission, active. - Appreciate cardiology consult. Will followup with recommendations - Troponins from 08/30 0.033 to 09/02 0.061, with high of 0.091 on 08/31. - Continue ASA, Plavix, Heparin ggt,. - Patient was to have cardiac cath 09/06/16 if medically stable. Acute hyponatremia and mild azotemia. Not present on admission. Improving. - Likely due to pre-renal state from IV Lasix and cardiomyopathy - Followup BMP closely Insulin dependent Diabetes mellitus, present on admission. Active. - Patient has poor glucose while in the hospital ranging from 200-300's. - Lantus 25 units HS changed to 35 U 09/05/16. - HgA1c 8.2 on 08/31/16 Hyperlipidemia - Fasting lipid panel wnl - Reported allergy to Statins, but is tolerating 5mg Crestor. Acetaminophen for mild pain when necessary. Bowel regimen Senna and MiraLAX scheduled and PRN. Zofran when necessary for nausea and vomiting. Heparin ggt for now. SCDs in place. High-risk medications: IV Heparin ggt Disposition: Likely here for > 2 midnights. Dependent upon cardiac cath findings and interventions, Will be discharged to home when medically stable. Pain Evaluation: Adequate Pain Control GI Prophylaxis: Proton Pump Inhibitor VTE Prophylaxis: Sub-Q Heparin (Unfractionated) VTE Mechanical Devices: Venous Foot Pump Resuscitation Status: CPR: Attempt Resuscitation Attending Statement The patient was seen and examined together with Dr. Young on 09/05/2016 and I agree with the history, exam and plan as outlined in the note above. . Dinesh Young DO Sep 05, 2016 07:10 DANNY ABARCA DO Sep 05, 2016 18:29 Carmelo Ag MD Sep 05, 2016 20:16
[2016-09-05] MEDS: Insulin GLARgine 100 Unit/mL Syringe SUBQ SCH (21:16)
[2016-09-06] VITALS (14 sets, daily range): BP systolic 8–118; BP diastolic 53–73; PULSE 78–104; RESP 4–32; O2SAT 91–99
[2016-09-06] MEDS: Sodium Chloride LOK Flush 10 mL Syringe IVFLUSH SCH ×3 (00:30→16:30)
--- NOTE | 2016-09-06 04:41 | NUR ---
P) Respiratory Pt. alert and oriented, became SOB at HS and requested neb treatment and Bipap, lungs with decreased breath sounds bilat. and scattered crackles in bases R>L. I) RT set up bipap at FIO2 of 40% I-16, E-6. Meds per 's orders. Went over pulmonary hygiene. E) Resting quietly with eyes closed.
[2016-09-06 05:40] LABS: Mean Corpuscular Hemoglobin 34.9 pg (27.0-35.0); Mean Corpuscular Volume 101.4 fL (81-100)
[2016-09-06] MEDS: Insulin LISPRO 300 Unit/3 mL Inj SUBQ SCH ×4 (08:00→20:19)
[2016-09-06] MEDS: Furosemide 10 mg/mL 4 mL Inj IVPUSH SCH ×2 (08:12→20:16)
[2016-09-06] MEDS: MeTOProlol XL 25 mg ER24 Tablet PO SCH ×2 (08:12→20:15)
[2016-09-06] MEDS: Potassium Chloride 20 mEq SR Tablet PO SCH (08:12)
[2016-09-06] MEDS: Pantoprazole 20 mg ER24 Tablet PO SCH (08:13)
[2016-09-06] MEDS: Heparin 25K Unit/500mL 0.45 NS 25,000 UNIT in IV Premix 1 EACH IV SCH (09:51)
--- NOTE | 2016-09-06 11:30 | NUR ---
[facility] signed
--- NOTE | 2016-09-06 11:38 | PROG NOTE ---
[address] [address] PROGRESS NOTE PATIENT: REED TANNER : 1950 MR#: [id number] ADMIT: 08/31/2016 JOB ID: [id number] DATE: 09/06/2016 CARDIOLOGY PROGRESS NOTE: The patient was able to be weaned off of BiPAP yesterday and feels that her breathing is significantly improved although still not back to baseline. She has not yet been able to lay flat although has not specifically attempted this. She continues to deny any sense of any chest discomfort and has had no sense of any palpitations. DATE: PHYSICAL EXAMINATION: Moderately obese, elderly female, in no distress. HR has been generally in the 80-100 range. BP 109/53, O2 saturation 99% on 4 L of nasal cannula. She had a net diuresis yesterday of around 500 mL although is negative by amount 1 L so far today. Her weight is reportedly up 3.5 kg which I suspect is inaccurate as she has had a total diuresis of around 3 L over the last three days. Skin: Warm and dry. Lungs: Dullness at both bases with reduced breath sounds consistent with pleural effusions but no rales. CV: Regular rate and rhythm without any appreciable murmurs or gallops. JVP appears to be around 6 cm, improved from yesterday. Abdomen: Soft, nondistended, nontender. Extremities: Warm without any significant pitting edema. : Mcwilliams catheter in place. LABORATORIES: Her potassium yesterday was 3.5 and this morning is 4.0. Sodium has improved from 132 to 137. BUN is 20 with a creatinine of 0.9, unchanged from yesterday. Glucose is 179. Magnesium level is 2.0. Hematocrit is 29%, essentially unchanged. White count remains normal. She remains on an IV heparin drip with therapeutic PTTs. ECG: Shows sinus rhythm with an LVH with strain pattern with possible previous anterior MO. No significant change from September 02, 2016 except she is now on a sinus rhythm versus an ectopic multifocal atrial tachycardia. A chest x-ray from September 04 showed pulmonary edema with bilateral pleural effusions. IMPRESSION: 1. Ischemic cardiomyopathy with congestive heart failure, possibly due to a non-ST elevation myocardial infarction. She continues to appear to have improved volume status with diuresis although continues to have some evidence of volume overload and has not yet been able to lay flat which is a requirement for proceeding with cardiac catheterization. Given this, I would continue with her IV bolus furosemide today and not pursue catheterization until tomorrow. Electrolytes and renal function will need to be monitored and supplemented as needed. Given her pleural effusions, I think that a right heart catheterization may be of some benefit as well to assess her pulmonary artery pressures. 2. Hypernatremia. Improved. 3. Anemia. Stable. 4. Atrial fibrillation. No recurrence. 5. Hyperlipidemia. Remains on rosuvastatin. 6. Diabetes. Blood sugars remain moderately controlled. PLAN: 1. Continue with IV diuresis today with anticipation of cardiac catheterization tomorrow. 2. Continue to track electrolytes and renal function. 3. Pursue right heart catheterization as well. 4. Further recommendations dependent upon those results. If no intervention is needed, then I would suspect that she might be able to be discharged after her cardiac catheterization tomorrow but more likely on Sunday. I spent 40 minutes reviewing the patient's medical record, examining the patient, interviewing the patient and documenting this.
--- NOTE | 2016-09-06 16:19 | NUR ---
Respiratory/cardiac Patient resting quietly without complaints. Oxygen titrated down to 2L per NC, attempted to wean off but unable to maintain sp02 >92% on room air. No reported SOA. Tolerating activity in room. Ambulated in room and up to chair this afternoon. Denies pain. SR per monitoring analyst. VSS. Heparin gtt continued per orders. Plan for angiogram 6 Addendum: 09/06/16 at 1622 by AROLDO WINN RN Plan for angiogram 09/07/16
--- NOTE | 2016-09-06 17:20 | NUR ---
elevated blood glucose Bedside blood glucose >300. Dr Young notified, no new orders at this time. Continuing with medium dose SSI and scheduled lantus at hs.
--- NOTE | 2016-09-06 18:16 | PCM.PNMED ---
Subjective Date of Service Sep 06, 2016 Subjective Ms. Darling Medel is a pleasant 66 year old lady with history of ischemic cardiomyopathy, Insulin dependant Diabetes II, hyperlipidemia, presented to the ED with c/o worsening shortness of breath for 1 day. She c/o associated peripheral edema, orthopnea, clear productive cough for 2 days. She is currently being weened off of BiPAP and treated with aggressive diuretics, with plan for cardiac catheterization tomorrow. Overnight events: None. Patient is resting in bed comfortably and in no acute distress. Patient reports feeling about the same as the previous day, but is requiring less oxygen, currently at 4L. She denies fever, chills, cough, chest pain, nausea, vomiting, abdominal pain, constipation. She has been able to pass bowel movement and currently has a arora catheter in. Exam Vital Signs Vital Sign - Last Date Time Temp Pulse Resp B/P Pulse Ox O2 Delivery O2 Flow Rate FiO2 09/06/16 04:35 77 26 108/57 97 40 09/06/16 03:52 36.0 BiPAP 09/05/16 20:00 6.00 Intake and Output 09/05/16 09/05/16 09/06/16 Cumulative From/Thru 15:00 23:00 07:00 08/30/16 20:58 - 09/06/16 05:42 Intake Total 1350 ml 504 ml 16300 ml Output Total 1400 ml 1600 ml 78555 ml Balance -50 ml -1096 ml -4718 ml Intake Oral 750 ml 200 ml 6574 ml IV Total 600 ml 304 ml 4883 ml Output Urine Total 1400 ml 1600 ml 41149 ml Urine/Stool Mix 700 ml # Voids 7 # Bowel Movements 0 18 Exam General: Patient in no acute distress, well-developed, well-nourished, appropriately interactive HEENT: Normocephalic, atraumatic. External ears without defect. Pupils equal, round, and reactive to light and accommodation. Anicteric sclerae, moist conjunctivae Neck: Supple with full range of motion. No jugular venous distension. No bruits. No lymphadenopathy or thyromegaly. Cardiovascular: Regular rate and rhythm with no murmurs, rubs, or gallops appreciated Pulmonary: Clear to auscultation bilaterally, no wheezes, rhonchi. On Bipap currently. Abdomen: Bowel tones present. Soft, nontender, but mild discomfort, nondistended. No hepatosplenomegaly or masses appreciated. Extremities: 1+ edema bilaterally, No clubbing, cyanosis Skin: Normal temperature, turgor, and texture; no rash, ulcers, or subcutaneous nodules appreciated. Neurological: Cranial nerves grossly intact. Normal muscle strength, tone, and bulk. Psychiatric: Normal mood and affect. Alert and oriented to person, place, and time. Lab and Diagnostics Result Diagram: 09/06/16 0515 09/05/16 0842 X-Rays, CTs and MRIs Date of Service: 09/01/16 0600 PROCEDURE: X-RAY CHEST, TWO VIEWS ([id number]) IMPRESSION: Slight decrease in pulmonary edema as well as improvement involving the right lung base with persistent consolidation involving the left lung base. Small pleural effusion. Dictated by: Donovan CAPPS Interpreted: Shayy Styles MD on 09/01/2016 at 9:37 Approved by: Shayy Styles M.D. on 09/01/2016 at 14:07 Cardiac Echo Impressions Date of Service: 09/02/16 0735 Echocardiogram Report Interpretation Summary NSR. Worsening cardiomyopathy. Normal LV size and upper limit of normal concentric LVH. There is mid- inferoseptal, mid-anteroseptal, distal septal, mid-inferolateral and basal anterolateral hypokinesis. There is basal anterior, mid-anterior, distal- anterior, mid-anterolateral akinesis. Otherwise normal wall motion. EF is 35- 40%. Stage II diastolic dysfunction. Moderate bilateral pleural effusions. Compared to prior study 04/10/2016, pleural effusions are new. EF is down from 50-55% to 35-40%. Focal wall motion abnormalities are new. Reading Physician:03:59 PM Assessment & Plan Ms. Darling Medel is a pleasant 66 year old lady with history of ischemic cardiomyopathy, Insulin dependant Diabetes II, hyperlipidemia, presented to the ED with c/o worsening shortness of breath for 1 day. She c/o associated peripheral edema, orthopnea, clear productive cough for 2 days. She is currently being weened off of BiPAP and treated with aggressive diuretics, with plan for cardiac catheterization tomorrow. Acute decompensated Heart Failure with reduced ejection fraction, present on admission.Active. - Lasix drip transitioned to PO. Continue to diurese while awaiting cath 09/07/16. - Echo 09/02 showing: "Compared to prior study 04/10/2016, pleural effusions are new. EF is down from 50-55% to 35-40%. Focal wall motion abnormalities are new. " - Appreciate cardiology consult. Will followup with recommendations. - Cath now planned for 09/07/16. Chronic Ischemic Cardiomyopathy, present on admission, active. - Appreciate cardiology consult. Will followup with recommendations - Troponins from 08/30 0.033 to 09/02 0.061, with high of 0.091 on 08/31. - Continue ASA, Plavix, Heparin ggt,. - Patient was to have cardiac cath 09/06/16 if medically stable. Acute hyponatremia and mild azotemia. Not present on admission. Improving. - Likely due to pre-renal state from IV Lasix and cardiomyopathy - Followup BMP closely Insulin dependent Diabetes mellitus, present on admission. Active. - Patient has poor glucose while in the hospital ranging from 200-300's. - Lantus 35 units nightly with medium dose correcting scale - HgA1c 8.2 on 08/31/16 Hyperlipidemia - Fasting lipid panel wnl - Reported allergy to Statins, but is tolerating 5mg Crestor. Acetaminophen for mild pain when necessary. Bowel regimen Senna and MiraLAX scheduled and PRN. Zofran when necessary for nausea and vomiting. Heparin ggt for now. SCDs in place. High-risk medications: IV Heparin ggt Disposition: Likely discharge 09/08/16. Dependent upon cardiac cath findings and interventions, Will be discharged to home when medically stable. Pain Evaluation: Adequate Pain Control GI Prophylaxis: Proton Pump Inhibitor VTE Prophylaxis: Sub-Q Heparin (Unfractionated) VTE Mechanical Devices: Intermittant Pneumatic CD Resuscitation Status: CPR: Attempt Resuscitation Attending Statement The patient was seen and examined together with Dr. Young on 09/06/2016 and I agree with the history, exam and plan as outlined in the note above. . Dinesh Young DO Sep 06, 2016 06:24 Carmelo Ag MD Sep 07, 2016 17:42
[2016-09-06] MEDS: Insulin LISPRO 300 Unit/3 mL Inj SUBQ ONE ×2 (18:22→18:28)
[2016-09-06] MEDS: Insulin GLARgine 100 Unit/mL Syringe SUBQ SCH (20:19)
[2016-09-07] VITALS (25 sets, daily range): BP systolic 96–156; BP diastolic 41–120; PULSE 79–101; RESP 14–24; O2SAT 90–100
[2016-09-07] MEDS: Sodium Chloride LOK Flush 10 mL Syringe IVFLUSH SCH ×4 (00:05→23:43)
--- NOTE | 2016-09-07 04:48 | NUR ---
P) Respiratory Pt. alert and oriented, felt SOB at change of shift, bipap replaced per RT, pt. felt less SOB. Lungs with coarse breath sounds, scattered crackles, more in R lung than left, decreased in bases bilat. I) Meds per 's orders, cont. to monitor, enc pulmonary hygiene; E) Resting quietly with eyes closed.
[2016-09-07 05:45] LABS: Mean Corpuscular Hemoglobin 33.9 pg (27.0-35.0); Mean Corpuscular Volume 103.1 fL (81-100)
[2016-09-07 06:09] LABS: Magnesium 1.8 mg/dL (1.6-2.6)
[2016-09-07] MEDS: Heparin 5,000 Unit/mL Inj IVPUSH PRN (06:52)
[2016-09-07] MEDS: Insulin LISPRO 300 Unit/3 mL Inj SUBQ SCH ×4 (08:00→21:43)
[2016-09-07] MEDS: Potassium Chloride 20 mEq SR Tablet PO SCH (08:00)
[2016-09-07] MEDS: Furosemide 10 mg/mL 4 mL Inj IVPUSH SCH ×2 (08:30→21:40)
[2016-09-07] MEDS: MeTOProlol XL 25 mg ER24 Tablet PO SCH ×2 (08:30→21:41)
[2016-09-07] MEDS: Pantoprazole 20 mg ER24 Tablet PO SCH (08:49)
[2016-09-07] MEDS: Heparin 25K Unit/500mL 0.45 NS 25,000 UNIT in IV Premix 1 EACH IV SCH (10:58)
--- NOTE | 2016-09-07 13:57 | PCM.PNMED ---
Subjective Date of Service Sep 07, 2016 Subjective Ms. Darling Medel is a pleasant 66 year old lady with history of ischemic cardiomyopathy, Insulin dependant Diabetes II, hyperlipidemia, presented to the ED with c/o worsening shortness of breath for 1 day. She c/o associated peripheral edema, orthopnea, clear productive cough for 2 days. She is currently being weened off of BiPAP and treated with aggressive diuretics, with plan for cardiac catheterization 09/07/16. Overnight events: None. Patient is resting in bed comfortably and in no acute distress. She is having some anxiety about her upcoming cardiac catherization, which is also causing 1/ 10 chest discomfort. She is otherwise feeling well. She denies fever, chills, cough, nausea, vomiting, abdominal pain, constipation. She has been able to pass bowel movement and currently has a arora catheter in. She has not been ambulating. Exam Vital Signs Vital Sign - Last Date Time Temp Pulse Resp B/P Pulse Ox O2 Delivery O2 Flow Rate FiO2 09/07/16 05:58 101 09/07/16 04:15 14 98 40 09/07/16 03:51 36.7 96/62 BiPAP 09/06/16 20:00 2.00 Intake and Output 09/06/16 09/06/16 09/07/16 Cumulative From/Thru 15:00 23:00 07:00 08/30/16 20:58 - 09/07/16 05:38 Intake Total 1344 ml 609 ml 79121 ml Output Total 1000 ml 1150 ml 64149 ml Balance 344 ml -541 ml -4915 ml Intake Oral 886 ml 400 ml 7860 ml IV Total 458 ml 209 ml 5550 ml Output Urine Total 1000 ml 1150 ml 10326 ml Urine/Stool Mix 700 ml # Voids 7 # Bowel Movements 2 0 20 Exam General: Patient in no acute distress, well-developed, well-nourished, appropriately interactive HEENT: Normocephalic, atraumatic. Anicteric sclerae, moist conjunctivae Neck: Supple with full range of motion. No jugular venous distension. No bruits. Cardiovascular: Regular rate and rhythm with no murmurs, rubs, or gallops appreciated Pulmonary: Clear to auscultation bilaterally, no wheezes, rhonchi. On oxygen mask currently. Abdomen: Bowel tones present. Soft, nontender, but mild discomfort, nondistended. No hepatosplenomegaly or masses appreciated. Extremities: 1+ edema bilaterally, No clubbing, cyanosis Skin: Normal temperature, turgor, and texture; no rash, ulcers, or subcutaneous nodules appreciated. Neurological: Cranial nerves grossly intact. Normal muscle strength, tone, and bulk. Psychiatric: Feeling anxious about upcoming procedure. Alert and oriented to person, place, and time. Lab and Diagnostics Item Value Date Time Glucose Level 212 mg/dL H 09/04/16 0750 White Blood Count 8.4 th/mm3 09/06/16 0515 Red Blood Count 2.84 mil/mm3 L 09/06/16 0515 Hemoglobin 9.9 g/dL L 09/06/16 0515 Hematocrit 28.8 % L 09/06/16 0515 Platelet Count 232 kristal/L 09/06/16 0515 Sodium Level 137 mEq/L 09/06/16 0515 White Blood Count 8.9 th/mm3 09/07/16 0515 Hemoglobin 9.9 g/dL L 09/07/16 0515 Hematocrit 30.1 % L 09/07/16 0515 Platelet Count 242 kristal/L 09/07/16 0515 Sodium Level 135 mEq/L 09/07/16 0515 Potassium Level 4.0 mEq/L 09/06/16 0515 Potassium Level 4.4 mEq/L 09/07/16 0515 Creatinine 0.88 mg/dL 09/06/16 0515 Creatinine 0.88 mg/dL 09/07/16 0515 Blood Urea Nitrogen 20 mg/dL 09/06/16 0515 Blood Urea Nitrogen 20 mg/dL 09/07/16 0515 Glucose Level 179 mg/dL H 09/06/16 0515 Glucose Level 201 mg/dL H 09/07/16 0515 Result Diagram: 09/07/16 0515 09/07/16 0515 X-Rays, CTs and MRIs Date of Service: 09/01/16 0600 PROCEDURE: X-RAY CHEST, TWO VIEWS ([id number]) IMPRESSION: Slight decrease in pulmonary edema as well as improvement involving the right lung base with persistent consolidation involving the left lung base. Small pleural effusion. Dictated by: Donovan Nichols A Interpreted: Shayy Styles MD on 09/01/2016 at 9:37 Approved by: Shayy Styles M.D. on 09/01/2016 at 14:07 Cardiac Echo Impressions Date of Service: 09/02/16 0735 Echocardiogram Report Interpretation Summary NSR. Worsening cardiomyopathy. Normal LV size and upper limit of normal concentric LVH. There is mid- inferoseptal, mid-anteroseptal, distal septal, mid-inferolateral and basal anterolateral hypokinesis. There is basal anterior, mid-anterior, distal- anterior, mid-anterolateral akinesis. Otherwise normal wall motion. EF is 35- 40%. Stage II diastolic dysfunction. Moderate bilateral pleural effusions. Compared to prior study 04/10/2016, pleural effusions are new. EF is down from 50-55% to 35-40%. Focal wall motion abnormalities are new. Reading Physician:03:59 PM Assessment & Plan Ms. Darling Medel is a pleasant 66 year old lady with history of ischemic cardiomyopathy, Insulin dependant Diabetes II, hyperlipidemia, presented to the ED with c/o worsening shortness of breath for 1 day. She c/o associated peripheral edema, orthopnea, clear productive cough for 2 days. She is currently being weened off of BiPAP and treated with aggressive diuretics, with plan for cardiac catheterization 09/07/16 Acute decompensated Heart Failure with reduced ejection fraction, present on admission.Active. - Lasix drip transitioned to PO. Continue to diurese. - Echo 09/02 showing: "Compared to prior study 04/10/2016, pleural effusions are new. EF is down from 50-55% to 35-40%. Focal wall motion abnormalities are new. " - Appreciate cardiology consult. Will followup with recommendations. - Cardiac Catheterization planned for 09/07/16. Chronic Ischemic Cardiomyopathy, present on admission, active. - Appreciate cardiology consult. Will followup with recommendations - Troponins from 08/30 0.033 to 09/02 0.061, with high of 0.091 on 08/31. - Continue ASA, Plavix, Heparin ggt,. Acute hyponatremia and mild azotemia. Not present on admission. Improving. - Likely due to pre-renal state from IV Lasix and cardiomyopathy - Followup BMP closely Insulin dependent Diabetes mellitus, present on admission. Active. - Patient has poor glucose while in the hospital ranging from 200-300's. - Lantus 35 units nightly with medium dose correcting scale - HgA1c 8.2 on 08/31/16 Hyperlipidemia - Fasting lipid panel within normal limits - Reported allergy to Statins, but is tolerating 5mg Crestor. Acetaminophen for mild pain when necessary. Bowel regimen Senna and MiraLAX scheduled and PRN. Zofran when necessary for nausea and vomiting. Heparin ggt for now. SCDs in place. High-risk medications: IV Heparin ggt Disposition: Likely discharge 09/08/16. Dependent upon cardiac cath findings and interventions, Will be discharged to home when medically stable. Pain Evaluation: Adequate Pain Control GI Prophylaxis: Proton Pump Inhibitor VTE Prophylaxis: Sub-Q Heparin (Unfractionated) VTE Mechanical Devices: Intermittant Pneumatic CD Resuscitation Status: CPR: Attempt Resuscitation Attending Statement The patient was seen and examined together with Dr. Young on 09/07/2016 and I agree with the history, exam and plan as outlined in the note above. . Dinesh Young DO Sep 07, 2016 06:38 Carmelo Ag MD Sep 07, 2016 17:43
[2016-09-07] MEDS ORDERED: Heparin 1,000 Units/500 mL NS Premix IV ONE (15:54)
[2016-09-07] MEDS ORDERED: 0.9% Sodium Chloride 50 ML ONE (15:55)
[2016-09-07] MEDS ORDERED: Heparin 10,000 Unit/1,000 mL NS Premix IV ONE (16:13)
[2016-09-07] MEDS ORDERED: Heparin 1,000 Unit/mL 10 mL Inj ONE (17:23)
--- NOTE | 2016-09-07 18:27 | NUR ---
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 [facility] RN called at 1828 to report pt is in recovery and will be returning to the floor between 1914 and 1929. Up to BSC with SBA, no respiratory distress noted or reported.
--- NOTE | 2016-09-07 18:29 | DI95 ---
[address] [address] INTERVENTIONAL CARDIAC CATHETERIZATION PATIENT: REED TANNER : 1950 MR#: [id number] ADMIT: 08/31/2016 JOB ID: [id number] DATE OF PROCEDURE: 09/07/2016 PATIENT PROFILE: The patient is a 66-year-old lady who presented with congestive heart failure. PROCEDURE: 1. Right heart catheterization. 2. Retrograde left heart catheterization. 3. Selective coronary angiography. 4. Balloon angioplasty and stenting to the ramus intermedius ostium. 5. Left ventricular angiogram. 6. Vascular closure device, Angio-Seal. COMPLICATIONS: None. METHOD: Combined left and right heart catheterization was performed from the right groin under 1% lidocaine local anesthesia using a 6-Thai and a 7-Thai sheaths. A 7-Thai [place] catheter was used for the right heart pressures. Cardiac output was determined by both thermodilution technique and RAS method. Selective coronary angiogram was performed in multiple projections, including cranial and caudal angulations with hand injected contrast via JL4 and 3DRC catheters. Heparin 100 units/kg were given. A 6-Thai JL4 guide was advanced to the left coronary ostium. A Runthrough wire was placed inside the ramus intermedius. The lesion was pre-dilated with a 2.0 x 12 mm balloon. A Xience 2.25 x 12 mm stent was placed inside the lesion and deployed at 12 atmospheres for 30 seconds. Final angiogram was obtained. A 6-Thai angulated pigtail catheter was advanced to the left ventricle and left ventricular angiogram was performed in the 30 degree [place] view by injecting contrast at the rate of 10 cc/second for 3 seconds. This catheter was withdrawn. Right femoral angiogram was performed. Following sheath removal, hemostasis was achieved by using Angio-Seal device. The patient tolerated the procedure well. She was transferred to [facility] in good condition. TOTAL CONTRAST USED: 120 cc. FLUOROSCOPY TIME: 3.8 minutes. RESULTS: 1. Mean right atrial pressure is 11 mmHg. 2. Right ventricular pressure is 50/80 mmHg. 3. Pulmonary artery pressure is 51/22 mmHg. 4. Mean pulmonary capillary wedge pressure is 25 mmHg with a V wave of 33 mmHg. 5. Mixed venous saturation is 60%. 6. Arterial oxygen saturation is 98% on face mask 8 L/minute. 7. Cardiac output by the thermodilution technique is 3.60 L/minute with an index of 1.9 L/minute/meter squared. 8. Cardiac output by the RAS method is 4.9 L/minute with an index of 2.6 L/minute/meter squared. 9. Aortic pressure is 121/61 mmHg. 10. Left ventricular pressure is 117/18 mmHg. 11. Left ventricular end diastolic pressure is 30 mmHg. 12. Selective coronary angiogram: a. The left main coronary artery has 20% stenosis at its ostium. b. The left anterior descending artery has diffuse severe 90% stenosis in the proximal portion and becomes totally occluded in the mid portion. c. The ramus intermedius is moderate size and has critical 99% stenosis at its origin. The previous stent site in the proximal portion remains patent. d. The dominant circumflex artery has minor irregularity. The left posterolateral branch has 60% stenosis. e. The small and nondominant right coronary artery has minor irregularity. 13. Angioplasty and stenting was performed to the critical culprit ramus intermedius ostium lesion by deploying one drug eluting stent (2.25 x 12 mm) to achieve an excellent angiographic result with BELL-3 flow distally. 14. Left ventricular angiogram demonstrates dilated left ventricle with severely depressed left ventricular systolic function (visually estimated ejection fraction 20%). The apical 3/4 of the anterolateral wall, apex and adjacent inferior wall are akinetic. The basal 2/3 of the inferior wall contracts normally. There is 2+ mitral regurgitation. CONCLUSION: 1. Chronically occluded left anterior descending. 2. Critical 99% stenosis at the ramus intermedius ostium. This was successfully treated with one drug-eluting stent. 3. Moderate to severe stenosis of the left posterolateral branch. 4. LVEF 20%. 5. 2+ mitral regurgitation. 6. Cardiac index is 1.9 L/minute/meter squared. 7. Mean pulmonary capillary wedge pressure is 25 mmHg with a V wave of 33 mmHg. MTDD
[2016-09-07] MEDS ORDERED: 0.9% Sodium Chloride 250 ML IV PRN (18:53)
[2016-09-07] MEDS ORDERED: 0.9% Sodium Chloride 1,000 ML IV PRN (18:53)
[2016-09-07] MEDS ORDERED: Ondansetron 2 mg/mL 2 mL Inj IVPUSH PRN (18:55)
[2016-09-07] MEDS ORDERED: Atropine 1 mg/10 mL (Code) Syringe IVPUSH PRN (18:55)
--- NOTE | 2016-09-07 20:15 | NUR ---
[facility] Patient to [facility] bed 9 at 1800 from labor mediator. at bedside. patient denies pain. Right groin angioseal without bleeding or hematoma. Pedal pulse present. Bipap set up by RT. Patient resting quietly. Declined anything PO. Mcwilliams with fatmata urine. Transferred back to room 2024 at 1999. Report to receiving RN.
[2016-09-07] MEDS: Insulin GLARgine 100 Unit/mL Syringe SUBQ SCH (21:40)
[2016-09-08] VITALS (9 sets, daily range): BP systolic 98–106; BP diastolic 50–58; PULSE 72–92; RESP 16–22; O2SAT 92–97
[2016-09-08 04:13] LABS: Mean Corpuscular Hemoglobin 34.1 pg (27.0-35.0); Mean Corpuscular Volume 103.7 fL (81-100)
--- NOTE | 2016-09-08 05:54 | NUR ---
Pt arrive from [facility] at 1999. R groin stable. R dorsal pulse intact. Tele SR, PAC, VSS.
--- NOTE | 2016-09-08 05:57 | NUR ---
P: c/o sinus GUPTA, 06/12 I: tylenol, hot pack to forehead E: Tylenol and hot pack effective for sinus GUPTA. c/o dyspnea x 1 after up to BSC and at 20 degrees back in bed. Increase oxymask from 3L to 6L and increase HOB resolving dyspnea. Currently on 2L oxymask, sat 95% asleep. Tele SR, PACs. BP stable low. Lasix IVP given HS along w/ toprol xl. Fairly good urine response to lasix via arora. R groin ooze. Reinforced dressing, helpful. Dorsal pulse intact. R foot pitting and L foot w/ trace edema.
[2016-09-08] MEDS: Insulin LISPRO 300 Unit/3 mL Inj SUBQ SCH ×6 (08:00→22:03)
[2016-09-08] MEDS: Potassium Chloride 20 mEq SR Tablet PO SCH (08:14)
[2016-09-08] MEDS: Sodium Chloride LOK Flush 10 mL Syringe IVFLUSH SCH ×3 (08:14→23:36)
[2016-09-08] MEDS: MeTOProlol XL 25 mg ER24 Tablet PO SCH (08:14)
[2016-09-08] MEDS: Pantoprazole 20 mg ER24 Tablet PO SCH (08:14)
[2016-09-08] MEDS: Furosemide 10 mg/mL 4 mL Inj IVPUSH SCH ×2 (08:15→08:30)
[2016-09-08] MEDS: Amoxicillin-Clav 875-125 mg Tablet PO SCH ×2 (13:24→20:09)
--- NOTE | 2016-09-08 16:08 | NUR ---
Social Work: Multidisciplinary Rounds Pt discussed in am rounds. Pt is not medically stable for discharge at this time. Sw status remains unchanged at this time and continue to anticipate home discharge. [employer] to continue to follow to assess for unmet d/c needs. No Concerns about pt's capacity for selfcare.
--- NOTE | 2016-09-08 16:28 | PCM.PNMED ---
Subjective Date of Service Sep 08, 2016 Subjective Ms. Darling Medel is a pleasant 66 year old lady with history of ischemic cardiomyopathy, Insulin dependant Diabetes II, hyperlipidemia, presented to the ED with c/o worsening shortness of breath for 1 day. She c/o associated peripheral edema, orthopnea, clear productive cough for 2 days. She is currently being weened off of BiPAP and treated with aggressive diuretics, with plan for cardiac catheterization 09/07/16. Overnight Events: None Patient is resting in bed comfortably on 3L O2 and in no acute distress. She mentions developing sinus tenderness that feels better with Tylenol and a heat pack. She also feels short of breath with standing. She is not having any fever , chills, chest pain, abdominal pain, diarrhea, constipation. She has been having small bowel movements and still has a arora catheter for urine. Exam Vital Signs Vital Sign - Last Date Time Temp Pulse Resp B/P Pulse Ox O2 Delivery O2 Flow Rate FiO2 09/08/16 12:38 37.1 92 22 104/58 97 Nasal Cannula 3.00 09/07/16 04:15 40 Intake and Output 09/07/16 09/07/16 09/08/16 Cumulative From/Thru 15:00 23:00 07:00 08/30/16 20:58 - 09/08/16 04:41 Intake Total 500 ml 400 ml 76023 ml Output Total 900 ml 800 ml 83194 ml Balance -400 ml -400 ml -5715 ml Intake Oral 400 ml 400 ml 8660 ml IV Total 100 ml 5650 ml Output Urine Total 900 ml 800 ml 48378 ml Urine/Stool Mix 700 ml # Voids 7 # Bowel Movements 0 2 22 Exam General: Patient in no acute distress, well-developed, well-nourished, appropriately interactive HEENT: Normocephalic, atraumatic. Anicteric sclerae, moist conjunctivae. Left frontal sinus tenderness. Neck: Supple with full range of motion. No jugular venous distension. No bruits. Cardiovascular: Regular rate and rhythm with no murmurs, rubs, or gallops appreciated Pulmonary: Clear to auscultation bilaterally, no wheezes, rhonchi. On oxygen mask 3L currently. Abdomen: Bowel tones present. Soft, nontender, but mild discomfort, nondistended. Extremities: 1+ pitting edema bilaterally, No clubbing, cyanosis Skin: Normal temperature, turgor, and texture; no rash, ulcers, or subcutaneous nodules appreciated. Neurological: Cranial nerves grossly intact. Normal muscle strength, tone, and bulk. Psychiatric: Feeling anxious about upcoming procedure. Alert and oriented to person, place, and time. Lab and Diagnostics Result Diagram: 09/08/16 0335 09/08/16 033 X-Rays, CTs and MRIs Date of Service: 09/01/16 0600 PROCEDURE: X-RAY CHEST, TWO VIEWS ([id number]) IMPRESSION: Slight decrease in pulmonary edema as well as improvement involving the right lung base with persistent consolidation involving the left lung base. Small pleural effusion. Dictated by: Donovan Nichols RRA Interpreted: Shayy Styles MD on 09/01/2016 at 9:37 Approved by: Shayy Styles M.D. on 09/01/2016 at 14:07 Cardiac Echo Impressions Date of Service: 09/02/16 0735 Echocardiogram Report Interpretation Summary NSR. Worsening cardiomyopathy. Normal LV size and upper limit of normal concentric LVH. There is mid- inferoseptal, mid-anteroseptal, distal septal, mid-inferolateral and basal anterolateral hypokinesis. There is basal anterior, mid-anterior, distal- anterior, mid-anterolateral akinesis. Otherwise normal wall motion. EF is 35- 40%. Stage II diastolic dysfunction. Moderate bilateral pleural effusions. Compared to prior study 04/10/2016, pleural effusions are new. EF is down from 50-55% to 35-40%. Focal wall motion abnormalities are new. Reading Physician:03:59 PM Additional Diagnostics PROCEDURE: 1. Right heart catheterization. 2. Retrograde left heart catheterization. 3. Selective angiography. 4. Balloon angioplasty and stenting to the ramus intermedius ostium. 5. Left ventricular angiogram. 6. Vascular closure device, Angio-Seal. CONCLUSION: 1. Chronically occluded left anterior descending. 2. Critical 99% stenosis at the ramus intermedius ostium. This was successfully treated with one drug-eluting stent. 3. Moderate to severe stenosis of the left posterolateral branch. 4. LVEF 20%. 5. 2+ mitral regurgitation. 6. Cardiac index is 1.9 L/minute per meter squared. 7. Mean pulmonary capillary wedge pressure is 25 mmHg with a V wave of 33 mmHg. Assessment & Plan Ms. Darling Medel is a pleasant 66 year old lady with history of ischemic cardiomyopathy, Insulin dependant Diabetes II, hyperlipidemia, presented to the ED with c/o worsening shortness of breath for 1 day. She c/o associated peripheral edema, orthopnea, clear productive cough for 2 days. She is currently being weened off of BiPAP and treated with aggressive diuretics, with plan for cardiac catheterization 09/07/16 Acute decompensated Heart Failure with reduced ejection fraction, present on admission.Active. - Echo 09/02 showing: "Compared to prior study 04/10/2016, pleural effusions are new. EF is down from 50-55% to 35-40%. Focal wall motion abnormalities are new. " - Appreciate cardiology consult. Will followup with recommendations. - Cardiac Catheterization results as above. - Will continue to diurese with Furosemide 40 mg BID as patient still fluid overloaded. - Switched from extended release metoprolol to Metoprolol Tartrate 12.5 mg BID. - Added spironolactone 25 mg daily Chronic Ischemic Cardiomyopathy, present on admission, active. - Appreciate cardiology consult. Will followup with recommendations - Troponins from 08/30 0.033 to 09/02 0.061, with high of 0.091 on 08/31 - Cardiac cath with stenting 09/07/16. Results as above. - Continue ASA, Plavix. Acute Sinusitus, not present on admission, active Patient developed frontal sinus tenderness more on the left. - Will treat with Augmentin 875 mg BID for 5 days. - Monitor CBC Acute hyponatremia and mild azotemia. Not present on admission. Improving. - Likely due to pre-renal state from IV Lasix and cardiomyopathy - Follow up BMP closely Insulin dependent Diabetes mellitus, present on admission. Active. - Patient has poor glucose while in the hospital ranging from 200-300's. - Lantus 35 units nightly with medium dose correcting scale - HgA1c 8.2 on 08/31/16 - Added 3 units lispro TIDAC to optimize blood sugar control. Hyperlipidemia - Fasting lipid panel within normal limits - Reported allergy to Statins, but is tolerating 5mg Crestor. Acetaminophen for mild pain and fever when necessary. Bowel regimen Senna and MiraLAX scheduled and PRN. Zofran when necessary for nausea and vomiting. Subq heparin. SCDs in place. High-risk medications: None Disposition: Likely discharge within 1-2 days. Patient needs to come down on oxygen needs and also diurese. Will be discharged to home when medically stable. Pain Evaluation: Adequate Pain Control GI Prophylaxis: Proton Pump Inhibitor VTE Prophylaxis: Sub-Q Heparin (Unfractionated) VTE Mechanical Devices: Intermittant Pneumatic CD Resuscitation Status: CPR: Attempt Resuscitation Attending Statement Anemia, likely multifactorial, worsening since admission. Ongoing. - Continue to monitor closely; consider transfusion if hemoglobin consistently below 10 The patient was seen and examined together with Dr. Young on 09/08/2016 and I agree with the history, exam and plan as outlined in the note above. . Dinesh Young DO Sep 08, 2016 16:28 Carmelo Ag MD Sep 10, 2016 15:47
--- NOTE | 2016-09-08 16:56 | PCM.PNCARD ---
Subjective Date of service Sep 08, 2016 Chief Complaint heart failure, ischemic cardiomyopathy, CAD History of Present Illness 66-year-old woman history of heart failure that resolved with medications and revascularization admitted with heart failure exacerbation from newly drop in ejection fraction and critical ostial ramus stenosis. Subjective: Patient feels better from heart failure standpoint but she continues to need oxygen. She tolerated her stent placement to the ostial ramus artery well yesterday. Exam Vital Signs Vital Sign - Last Date Time Temp Pulse Resp B/P Pulse Ox O2 Delivery O2 Flow Rate FiO2 09/08/16 12:38 37.1 92 22 104/58 97 Nasal Cannula 3.00 09/07/16 04:15 40 Intake and Output 09/07/16 09/07/16 09/08/16 Cumulative From/Thru 14:59 22:59 06:59 08/30/16 20:58 - 09/08/16 04:41 Intake Total 500 ml 400 ml 22319 ml Output Total 900 ml 800 ml 82961 ml Balance -400 ml -400 ml -5715 ml Intake Oral 400 ml 400 ml 8660 ml IV Total 100 ml 5650 ml Output Urine Total 900 ml 800 ml 64718 ml Urine/Stool Mix 700 ml # Voids 7 # Bowel Movements 0 2 22 General appearance: No apparent distress, pleasant, cooperative HEET: Normocephalic atraumatic, no scleral icterus, tongue midline, mucous membranes moist Neck: supple Cardiovascular: RRR, normal S1 and normal S2, no murmurs/ rubs/gallops, PMI nondisplaced, JVP 11cm H20, no peripheral edema Respiratory: Fair aeration, decreased breath sounds at bases b/l Abdomen: Soft, nontender, nondistended, + bowel sounds Neuro: Alert, no facial droop, tongue midline, no gross motor deficits Psych: appropriate affect Lab and Diagnostics Result Diagram: 09/08/1633409/08/16334 Assessment & Plan Assessment 66-year-old woman history of heart failure that resolved with medications and revascularization admitted with heart failure exacerbation from newly drop in ejection fraction and critical ostial ramus stenosis: # Systolic heart failure from ischemic cardiomyopathy with EF 35-40%. Patient is NYHA class IV, ACC stage C. She continues to be hypervolemic on exam. Recommendations as below: - Switch from metoprolol titrated to metoprolol succinate 25 mg by mouth twice a day - Start lisinopril 2.5 mg daily at bedtime - Continue spironolactone 25mg daily - Continue diuresis with IV furosemide until euvolemic - Ischemia management as below # CAD: Patient received drug-eluting stent placement to her proximal ramus artery in 2015. She did well until a few days ago when she started having heart failure symptoms. Repeat coronary angiography during this hospitalization showed ostial ramus critical stenosis that was treated successfully with drug-eluting stent. Unfortunately, patient claims to be intolerant to statin and does not want to take it. She has been treating her significant hyperlipidemia with vitamin K 2 supplements. Plan: - Continue aspirin 81 mg daily - Continue clopidogrel 75 mg daily - Continue rosuvastatin 5 mg daily at bedtime. Patient does not want to take this as outpatient and we will have to start the patient on PCXK9 inhibitors as outpatient # HLD: management as above # Anemia: defer to primary team for management Problems: Pain Evaluation: Adequate Pain Control GI Prophylaxis: Proton Pump Inhibitor VTE Prophylaxis: Sub-Q Heparin (Unfractionated) VTE Mechanical Devices: Intermittant Pneumatic CD Resuscitation Status: CPR: Attempt Resuscitation Tomer Zamora MD Sep 08, 2016 16:56
[2016-09-08 17:40] LABS: APPEARANCE,URINE CLEAR (CLEAR,HAZY); COLOR,URINE YELLOW (YELLOW); OCCULT BLOOD,URINE NEGATIVE (NEGATIVE); UROBILINOGEN,URINE NORMAL (NORMAL)
--- NOTE | 2016-09-08 18:04 | NUR ---
Headache/activity Pt c/o /10 pain in head. Gave tylenol and hot packs with minimal to moderate relief. Started augmentin for possible sinus infection. Pt able to get up and ambulate with PT, able to get SBA to BSC and sit on bed as well as walk in room. Yellow socks on for safety. Pt A&O x3 using the call light appropriately.
[2016-09-08] MEDS: Heparin 5,000 Unit/mL Inj SUBQ SCH (20:09)
[2016-09-08] MEDS: Insulin GLARgine 100 Unit/mL Syringe SUBQ SCH (22:00)
[2016-09-09] VITALS (10 sets, daily range): BP systolic 97–128; BP diastolic 49–78; PULSE 71–102; RESP 16–18; O2SAT 92–98
--- NOTE | 2016-09-09 05:18 | NUR ---
P: c/o GUPTA I: tylenol, hot pack E: c/o GUPTA 04/14. Tylenol and hot pack to forehead. Pt asleep. Denies dyspnea, N/V. 3L NC, sats 93-98%. Up to BSC sats drop to 87% on 3L NC. Pt states did not feel SOB. Rare dry cough. Tele SR w/ intermittent frequent PVCs. Low stable BP. Receive PO lasix and low dose metoloprol at HS. Poppy eid at 1999. Voiding via BSC.
[2016-09-09] MEDS: Insulin LISPRO 300 Unit/3 mL Inj SUBQ SCH ×7 (08:00→22:23)
[2016-09-09] MEDS: Potassium Chloride 20 mEq SR Tablet PO SCH (09:15)
[2016-09-09] MEDS: Pantoprazole 20 mg ER24 Tablet PO SCH (09:16)
[2016-09-09] MEDS: Sodium Chloride LOK Flush 10 mL Syringe IVFLUSH SCH ×2 (09:16→14:45)
[2016-09-09] MEDS: Heparin 5,000 Unit/mL Inj SUBQ SCH ×2 (09:18→20:39)
[2016-09-09] MEDS: Amoxicillin-Clav 875-125 mg Tablet PO SCH (09:19)
--- NOTE | 2016-09-09 11:24 | PCM.PNCARD ---
Subjective Date of service Sep 09, 2016 Chief Complaint heart failure, ischemic cardiomyopathy, CAD History of Present Illness 66-year-old woman history of heart failure that resolved with medications and revascularization admitted with heart failure exacerbation from newly drop in ejection fraction and critical ostial ramus stenosis. Subjective: Patient feels better from heart failure standpoint but she continues to need oxygen. She tolerated her stent placement to the ostial ramus artery well yesterday. Exam Vital Signs Vital Sign - Last Date Time Temp Pulse Resp B/P Pulse Ox O2 Delivery O2 Flow Rate FiO2 09/09/16 08:45 80 09/09/16 08:40 36.7 16 104/56 97 Nasal Cannula 3.00 09/07/16 04:15 40 Intake and Output 09/08/16 09/08/16 09/09/16 Cumulative From/Thru 14:59 22:59 06:59 08/30/16 20:58 - 09/09/16 05:15 Intake Total 1125 ml 540 ml 13643 ml Output Total 650 ml 1050 ml 65281 ml Balance 475 ml -510 ml -5750 ml Intake Oral 1125 ml 540 ml 49076 ml IV Total 5650 ml Output Urine Total 650 ml 1050 ml 71371 ml Urine/Stool Mix 700 ml # Voids 7 # Bowel Movements 1 0 23 General appearance: No apparent distress, pleasant, cooperative HEET: Normocephalic atraumatic, no scleral icterus, tongue midline, mucous membranes moist Neck: supple Cardiovascular: RRR, normal S1 and normal S2, no murmurs/ rubs/gallops, PMI nondisplaced, JVP 11cm H20, no peripheral edema Respiratory: Fair aeration, decreased breath sounds at bases b/l Abdomen: Soft, nontender, nondistended, + bowel sounds Neuro: Alert, no facial droop, tongue midline, no gross motor deficits Psych: appropriate affect Lab and Diagnostics Result Diagram: 09/09/16 0320 09/09/16 0320 Assessment & Plan Assessment 66-year-old woman history of heart failure that resolved with medications and revascularization admitted with heart failure exacerbation from newly drop in ejection fraction and critical ostial ramus stenosis: # Systolic heart failure from ischemic cardiomyopathy with EF 35-40%. Patient is NYHA class IV, ACC stage C. She continues to be hypervolemic on exam. Recommendations as below: - Switch from metoprolol tartrate to metoprolol succinate 25 mg by mouth twice a day - Continue losartan 12.5mg qhs - Continue spironolactone 25mg daily - Continue diuresis with IV furosemide until euvolemic - Ischemia management as below # CAD: Patient received drug-eluting stent placement to her proximal ramus artery in 2015. She did well until a few days ago when she started having heart failure symptoms. Repeat coronary angiography during this hospitalization showed ostial ramus critical stenosis that was treated successfully with drug-eluting stent. Unfortunately, patient claims to be intolerant to statin and does not want to take it. She has been treating her significant hyperlipidemia with vitamin K 2 supplements. Plan: - Continue aspirin 81 mg daily - Continue clopidogrel 75 mg daily - Continue rosuvastatin 5 mg daily at bedtime. Patient does not want to take this as outpatient and we will have to start the patient on PCXK9 inhibitors as outpatient # HLD: management as above # Anemia: defer to primary team for management Problems: Pain Evaluation: Adequate Pain Control GI Prophylaxis: Proton Pump Inhibitor VTE Prophylaxis: Sub-Q Heparin (Unfractionated) VTE Mechanical Devices: Intermittant Pneumatic CD Resuscitation Status: CPR: Attempt Resuscitation Tomer Zamora MD Sep 09, 2016 11:24
[2016-09-09] MEDS ORDERED: Furosemide 10 mg/mL 4 mL Inj IVPUSH ONE (12:00)
--- NOTE | 2016-09-09 13:41 | PCM.PNMED ---
Subjective Date of Service Sep 09, 2016 Subjective Ms. Darling Medel is a pleasant 66 year old lady with history of ischemic cardiomyopathy, Insulin dependant Diabetes II, hyperlipidemia, presented to the ED with c/o worsening shortness of breath for 1 day. She c/o associated peripheral edema, orthopnea, clear productive cough for 2 days. She developed acute decompensated heart failure and was aggressively diuresed with IV Furosemide. Cardiac Catheterization done on 09/07/16 showed 99% stenosis of the Ramus Intermedius Ostium and was successfully stented. She is still being aggressively diuresed to help with breathing and CHF. Overnight Events: None Patient is sitting in bed comfortably on 3L O2 and in no acute distress. She is still having sinus tenderness that is improved from yesterday. She is still having some shortness of breath and 1/10 chest discomfort upon standing for the commode. She is not having any fever, chills, abdominal pain, diarrhea, constipation. She has been having small bowel movements and is able to void on her own. She has worked with PT with walking around the [place]. Exam Vital Signs Vital Sign - Last Date Time Temp Pulse Resp B/P Pulse Ox O2 Delivery O2 Flow Rate FiO2 09/09/16 11:46 36.9 71 18 128/78 98 Nasal Cannula 2.00 09/07/16 04:15 40 Intake and Output 09/08/16 09/08/16 09/09/16 Cumulative From/Thru 15:00 23:00 07:00 08/30/16 20:58 - 09/09/16 05:15 Intake Total 1125 ml 540 ml 45139 ml Output Total 650 ml 1050 ml 04974 ml Balance 475 ml -510 ml -5750 ml Intake Oral 1125 ml 540 ml 18998 ml IV Total 5650 ml Output Urine Total 650 ml 1050 ml 90599 ml Urine/Stool Mix 700 ml # Voids 7 # Bowel Movements 1 0 23 Exam General: Patient in no acute distress, well-developed, well-nourished, appropriately interactive HEENT: Normocephalic, atraumatic. Anicteric sclerae, moist conjunctivae. Left frontal sinus tenderness. Neck: Supple with full range of motion. No jugular venous distension. No bruits. Cardiovascular: Regular rate and rhythm with no murmurs, rubs, or gallops appreciated Pulmonary: Clear to auscultation bilaterally, no wheezes, rhonchi. On Nasal Canula 3L currently. Abdomen: Bowel tones present. Soft, nontender, but mild discomfort, nondistended. Extremities: 1+ pitting edema bilaterally, No clubbing, cyanosis Skin: Normal temperature, turgor, and texture; no rash, ulcers, or subcutaneous nodules appreciated. Neurological: Cranial nerves grossly intact. Normal muscle strength, tone, and bulk. Psychiatric: Alert and oriented to person, place, and time. Lab and Diagnostics Result Diagram: 09/09/16 0320 09/09/16 0320 Microbiology Urine Culture 09/08/16 - No growth to date X-Rays, CTs and MRIs Date of Service: 09/01/16 0600 PROCEDURE: X-RAY CHEST, TWO VIEWS ([id number]) IMPRESSION: Slight decrease in pulmonary edema as well as improvement involving the right lung base with persistent consolidation involving the left lung base. Small pleural effusion. Dictated by: Donovan Nichols RRA Interpreted: Shayy Styles MD on 09/01/2016 at 9:37 Approved by: Shayy Styles M.D. on 09/01/2016 at 14:07 Cardiac Echo Impressions Date of Service: 09/02/16 0735 Echocardiogram Report Interpretation Summary NSR. Worsening cardiomyopathy. Normal LV size and upper limit of normal concentric LVH. There is mid- inferoseptal, mid-anteroseptal, distal septal, mid-inferolateral and basal anterolateral hypokinesis. There is basal anterior, mid-anterior, distal- anterior, mid-anterolateral akinesis. Otherwise normal wall motion. EF is 35- 40%. Stage II diastolic dysfunction. Moderate bilateral pleural effusions. Compared to prior study 04/10/2016, pleural effusions are new. EF is down from 50-55% to 35-40%. Focal wall motion abnormalities are new. Reading Physician:03:59 PM Additional Diagnostics PROCEDURE: 1. Right heart catheterization. 2. Retrograde left heart catheterization. 3. Selective angiography. 4. Balloon angioplasty and stenting to the ramus intermedius ostium. 5. Left ventricular angiogram. 6. Vascular closure device, Angio-Seal. CONCLUSION: 1. Chronically occluded left anterior descending. 2. Critical 99% stenosis at the ramus intermedius ostium. This was successfully treated with one drug-eluting stent. 3. Moderate to severe stenosis of the left posterolateral branch. 4. LVEF 20%. 5. 2+ mitral regurgitation. 6. Cardiac index is 1.9 L/minute per meter squared. 7. Mean pulmonary capillary wedge pressure is 25 mmHg with a V wave of 33 mmHg. Assessment & Plan Ms. Darling Medel is a pleasant 66 year old lady with history of ischemic cardiomyopathy, Insulin dependant Diabetes II, hyperlipidemia, presented to the ED with c/o worsening shortness of breath for 1 day. She c/o associated peripheral edema, orthopnea, clear productive cough for 2 days. She developed acute decompensated heart failure and was aggressively diuresed with IV Furosemide. Cardiac Catheterization done on 09/07/16 showed 99% stenosis of the Ramus Intermedius Ostium and was successfully stented. She is still being aggressively diuresed to help with breathing and CHF. Acute decompensated Heart Failure with reduced ejection fraction, present on admission. Active. - Echo 09/02 showing: "Compared to prior study 04/10/2016, pleural effusions are new. EF is down from 50-55% to 35-40%. Focal wall motion abnormalities are new. " - Appreciate cardiology consult. Will continue to follow their recommendations - Cardiac Catheterization results as above. - Diurese with Furosemide 40 mg IV BID as patient still fluid overloaded. Goal is net output of 1.5 L daily. - Continue spironolactone 25 mg daily Chronic Ischemic Cardiomyopathy, present on admission, active. - Appreciate cardiology consult. Will followup with recommendations - Troponins from 08/30 0.033 to 09/02 0.061, with high of 0.091 on 08/31 - Cardiac cath with stenting 09/07/16. Results as above. - Continue ASA, Plavix. - Metoprolol Succinate 25 mg BID Macrocytic Anemia, present on admission, Active, stable MCV > 100, Hgb 8.8, Folate > 19.9, LDH 244, Haptoglobin 227, Vitamin B12 1039 - Currently stable, will continue to monitor Acute Sinusitus, not present on admission, improved Patient developed frontal sinus tenderness more on the left. No leukocytosis - Humidified oxygen helped relieve patient sinusitis. Low clinical suspicion for acute bacterial sinusitis, so will stop treatment with augmentin. - Will stop treatment with augmentin Acute hyponatremia and mild azotemia. Not present on admission. Improving. - Likely due to pre-renal state from IV Lasix and cardiomyopathy - Follow up BMP closely Insulin dependent Diabetes mellitus, present on admission. Active. - Patient has poor glucose while in the hospital ranging from 200-300's. - Lantus 35 units nightly with medium dose correcting scale - HgA1c 8.2 on 08/31/16 - Added 3 units lispro TIDAC to optimize blood sugar control. Hyperlipidemia - Fasting lipid panel within normal limits - Reported allergy to Statins, but is tolerating 5mg Crestor. Acetaminophen for mild pain and fever when necessary. Bowel regimen Senna and MiraLAX scheduled and PRN. Zofran when necessary for nausea and vomiting. Subq heparin. SCDs in place. High-risk medications: None Disposition: Likely discharge within 1-2 days. Patient needs to come down on oxygen needs and also needs to become euvolemic through diuresis. Will be discharged to home when medically stable. Pain Evaluation: Adequate Pain Control GI Prophylaxis: Proton Pump Inhibitor VTE Prophylaxis: Sub-Q Heparin (Unfractionated) VTE Mechanical Devices: Intermittant Pneumatic CD Resuscitation Status: CPR: Attempt Resuscitation Attending Statement Anemia, likely multifactorial, worsening since admission. Ongoing. - Continue to monitor closely; consider transfusion if hemoglobin consistently below 10 The patient was seen and examined together with Dr. Young on 09/09/2016 and I agree with the history, exam and plan as outlined in the note above. . Dinesh Young DO Sep 09, 2016 13:41 Carmelo Ag MD Sep 10, 2016 15:48
--- NOTE | 2016-09-09 15:30 | NUR ---
Social Work: Readiness for Discharge/Multidisciplinary Rounds D: Pt discussed in am rounds. Pt is not yet medically stable for discharge at this time but is anticipated to be ready in 1-2 days. Pt continues to be diuresed. DIVISION DIRECTOR reviewed PT recs for HH versus OPPT; MD feels that pt does not require home health and can follow up with OPPT. No concerns about pt's capacity for self care. Pt has been engaging in own care during admission DIVISION DIRECTOR met with the patient at bedside to assess for discharge needs and barriers. Pt identifies no sw needs at this time. Pt agrees with plan to go home with OPPT. Pt was doing this before coming to the hospital. Pt' states her spouse will transport. A: pt who is I at baseline. P: Anticipate pt to discharge home via POV; no sw need identified at this time- DIVISION DIRECTOR to continue to follow to assess for discharge needs. RYAN Davies
--- NOTE | 2016-09-09 18:18 | NUR ---
Activity/Diuresis Patient a/o x 3, denies pain or nausea, but c/o nasal dryness, humidify applied to oxygen. Patient O2 titrated down to 1 L sat 93-94% at rest. O2 @ 1 L with activity sats 84%, O2 increased to 2 L nc while walking. Patient able to amb approx one lap with mild dyspnea. IV Lasix given this afternoon, patient voiding clear pale urine. PVR 0 ml. SBP 100's tele SR.
[2016-09-09] MEDS: MeTOProlol XL 25 mg ER24 Tablet PO SCH (20:39)
[2016-09-09] MEDS: Insulin GLARgine 100 Unit/mL Syringe SUBQ SCH (22:22)
[2016-09-10] VITALS (9 sets, daily range): BP systolic 95–100; BP diastolic 47–66; PULSE 78–91; RESP 16–22; O2SAT 92–97
[2016-09-10] MEDS: Sodium Chloride LOK Flush 10 mL Syringe IVFLUSH SCH ×3 (01:06→17:18)
[2016-09-10 03:36] LABS: BASOPHILS % (AUTO) 0.3 % (0-3); EOSINOPHILS % (AUTO) 2.7 % (0-5); MONOCYTES % (AUTO) 13.3 % (4-12); Mean Corpuscular Hemoglobin 34.1 pg (27.0-35.0); Mean Corpuscular Volume 103.1 fL (81-100); NEUTROPHILS % (AUTO) 50.8 % (40-74); Platelet Count 221 bil/L (150-400)
--- NOTE | 2016-09-10 06:41 | NUR ---
Diuresis/Rest/Oxygen Patient resting well overnight. Up several times to void with 900mL total urine output. Continues to maintain adequate SpO2 on 1L O2 by nasal cannula.
[2016-09-10] MEDS ORDERED: Furosemide 10 mg/mL 4 mL Inj IVPUSH SCH (08:30)
[2016-09-10] MEDS: Pantoprazole 20 mg ER24 Tablet PO SCH (09:08)
[2016-09-10] MEDS: Heparin 5,000 Unit/mL Inj SUBQ SCH ×2 (09:08→20:11)
[2016-09-10] MEDS: MeTOProlol XL 25 mg ER24 Tablet PO SCH ×2 (09:08→20:10)
[2016-09-10] MEDS: Insulin LISPRO 300 Unit/3 mL Inj SUBQ SCH ×7 (09:09→22:00)
--- NOTE | 2016-09-10 12:21 | PCM.PNCARD ---
Subjective Date of service Sep 10, 2016 Chief Complaint heart failure, ischemic cardiomyopathy, CAD History of Present Illness 66-year-old woman history of heart failure that resolved with medications and revascularization admitted with heart failure exacerbation from newly drop in ejection fraction and critical ostial ramus stenosis. Subjective: patient feels much better from breathing standpoint and participated in PT today. She is off oxygen now. Exam Vital Signs Vital Sign - Last Date Time Temp Pulse Resp B/P Pulse Ox O2 Delivery O2 Flow Rate FiO2 09/10/16 08:55 Supplement Oxygen 09/10/16 08:55 78 09/10/16 08:50 36.8 16 99/56 97 1.00 09/07/16 04:15 40 Intake and Output 09/09/16 09/09/16 09/10/16 Cumulative From/Thru 14:59 22:59 06:59 08/30/16 20:58 - 09/10/16 06:44 Intake Total 850 ml 680 ml 32767 ml Output Total 975 ml 900 ml 57936 ml Balance -125 ml -220 ml -6095 ml Intake Oral 850 ml 680 ml 67085 ml IV Total 5650 ml Output Urine Total 975 ml 900 ml 36201 ml Urine/Stool Mix 700 ml # Voids 3 10 # Bowel Movements 1 24 General appearance: No apparent distress, pleasant, cooperative HEET: Normocephalic atraumatic, no scleral icterus, tongue midline, mucous membranes moist Neck: supple Cardiovascular: RRR, normal S1 and normal S2, no murmurs/ rubs/gallops, PMI nondisplaced, JVP 9cm H20, trace peripheral edema Respiratory: Fair aeration, decreased breath sounds at bases b/l Abdomen: Soft, nontender, nondistended, + bowel sounds Neuro: Alert, no facial droop, tongue midline, no gross motor deficits Psych: appropriate affect Lab and Diagnostics Result Diagram: 09/10/16 0320 09/10/16 0320 Assessment & Plan Assessment 66-year-old woman history of heart failure that resolved with medications and revascularization admitted with heart failure exacerbation from newly drop in ejection fraction and critical ostial ramus stenosis: # Systolic heart failure from ischemic cardiomyopathy with EF 35-40%. She diuresed well with furosemide 40mg IV X2 yesterday. Patient is NYHA class III, ACC stage C. She appears euvolemic on exam but still has some fluid in her lungs that will take some time to clear (like last year). Recommendations as below: - Switch from metoprolol tartrate to metoprolol succinate 25 mg by mouth twice a day - Continue losartan 12.5mg qhs - Continue spironolactone 25mg daily - Switch from IV furosemide 40mg bid to PO furosemide 40mg daily - Chest XR to reassess lung [place] prior to discharge - Ischemia management as below # CAD: Patient received drug-eluting stent placement to her proximal ramus artery in 2016. She did well until a few days ago when she started having heart failure symptoms. Repeat coronary angiography during this hospitalization showed ostial ramus critical stenosis that was treated successfully with drug-eluting stent. Unfortunately, patient claims to be intolerant to statin and does not want to take it. She has been treating her significant hyperlipidemia with vitamin K 2 supplements. Plan: - Continue aspirin 81 mg daily - Continue clopidogrel 75 mg daily - Continue rosuvastatin 5 mg daily at bedtime. Patient does not want to take this as outpatient and we will have to start the patient on PCXK9 inhibitors as outpatient - Start ezetemibe 10mg daily to maximize lipid lowering therapies # HLD: management as above # Anemia: defer to primary team for management # Deconditioning: agree with PT evaluation and management. Will defer disposition to home vs. SNF based on PT and primary team's recommendations. Please call cardiology with further questions. Problems: Pain Evaluation: Adequate Pain Control GI Prophylaxis: Proton Pump Inhibitor VTE Prophylaxis: Sub-Q Heparin (Unfractionated) VTE Mechanical Devices: Intermittant Pneumatic CD Resuscitation Status: CPR: Attempt Resuscitation Tomer Zamora MD Sep 10, 2016 12:21
--- NOTE | 2016-09-10 13:35 | DRSVH ---
PROCEDURE: X-RAY CHEST, TWO VIEWS ([id number]) INDICATIONS: heart failure TECHNIQUE: 2 views of the chest were acquired. COMPARISON: [facility], CR, XR CHEST 1VW, 09/04/2016, 9:43. FINDINGS: Surgical changes and devices: None. Lungs and pleura: There are persistent bilateral small to moderate-sized pleural effusions with biba silar compressive atelectasis or consolidation. There is decreased but persistent pulmonary edema. Mediastinum: Mediastinal contours are unchanged. Heart contours are obscured. Bones and chest wall: No suspicious bony abnormalities. Soft tissues appear unremarkable. IMPRESSION: 1. Decreased but persistent pulmonary edema. 2. Bilateral small to moderate-sized pleural effusions with associated compressive atelectasis or co nsolidation. Dictated by: Jhonny Rod M.D. on 09/10/2016 at 13:32 Approved by: Jhonny Rod M.D. on 09/10/2016 at 13:33
--- NOTE | 2016-09-10 13:36 | NUR ---
Patient is discharged to [facility] for ambulation at this time as her goals have been Met
--- NOTE | 2016-09-10 15:29 | NUR ---
[facility] Signed
--- NOTE | 2016-09-10 15:30 | NUR ---
Social Work: Multidisciplinary Rounds Pt discussed in am rounds. Pt is not medically stable for discharge at this time. Anticipate discharge tomorrow. Sw status remains unchanged; anticipate discharge home via POV and no sw needs. PAN DUMPER to continue to follow RYAN Davies
--- NOTE | 2016-09-10 16:09 | PCM.PNMED ---
Subjective Date of Service Sep 10, 2016 Subjective Ms. Darling Medel is a pleasant 66 year old lady with history of ischemic cardiomyopathy, Insulin dependant Diabetes II, hyperlipidemia, presented to the ED with c/o worsening shortness of breath for 1 day. She c/o associated peripheral edema, orthopnea, clear productive cough for 2 days. She developed acute decompensated heart failure and was aggressively diuresed with IV Furosemide. Cardiac Catheterization done on 09/07/16 showed 99% stenosis of the Ramus Intermedius Ostium and was successfully stented. She is still being aggressively diuresed to help with breathing and CHF. Overnight Events: Ms. Medel'ml O2 was weened down to 1 L with no acute overnight events. Patient is sitting in bed comfortably on 1L O2 and in no acute distress She is still having some shortness of breath and 1/10 chest discomfort while in the shower this morning. She is not having any fever, chills, abdominal pain, diarrhea, constipation. She has been having small bowel movements and is able to void on her own. She has worked with PT with walking around the [employer]. Exam Vital Signs Vital Sign - Last Date Time Temp Pulse Resp B/P Pulse Ox O2 Delivery O2 Flow Rate FiO2 09/10/16 05:24 81 09/10/16 03:56 36.9 95/60 96 Nasal Cannula 1.00 09/09/16 23:18 16 09/07/16 04:15 40 Intake and Output 09/09/16 09/09/16 09/10/16 Cumulative From/Thru 15:00 23:00 07:00 08/30/16 20:58 - 09/10/16 03:56 Intake Total 850 ml 76116 ml Output Total 975 ml 57012 ml Balance -125 ml -5875 ml Intake Oral 850 ml 34439 ml IV Total 5650 ml Output Urine Total 975 ml 98787 ml Urine/Stool Mix 700 ml # Voids 7 # Bowel Movements 23 Exam General: Patient in no acute distress, well-developed, well-nourished, appropriately interactive HEENT: Normocephalic, atraumatic. Anicteric sclerae, moist conjunctivae. Left frontal sinus tenderness. Neck: Supple with full range of motion. No jugular venous distension. No bruits. Cardiovascular: Regular rate and rhythm with no murmurs, rubs, or gallops appreciated Pulmonary: Clear to auscultation bilaterally, no wheezes, rhonchi. On Nasal Canula 3L currently. Abdomen: Bowel tones present. Soft, nontender, but mild discomfort, nondistended. Extremities: 1+ pitting edema bilaterally, No clubbing, cyanosis Skin: Normal temperature, turgor, and texture; no rash, ulcers, or subcutaneous nodules appreciated. Neurological: Cranial nerves grossly intact. Normal muscle strength, tone, and bulk. Psychiatric: Alert and oriented to person, place, and time. IVs and Medications Medications Reviewed: Medications were reviewed in detail Lab and Diagnostics Result Diagram: 09/10/16 0320 09/10/16 0320 Microbiology Urine Culture 09/08/16 - No growth to date X-Rays, CTs and MRIs Date of Service: 09/01/16 0600 PROCEDURE: X-RAY CHEST, TWO VIEWS ([id number]) IMPRESSION: Slight decrease in pulmonary edema as well as improvement involving the right lung base with persistent consolidation involving the left lung base. Small pleural effusion. Dictated by: Donovan Nichols [facility] Interpreted: Shayy Styles MD on 09/01/2016 at 9:37 Approved by: Shayy Styles M.D. on 09/01/2016 at 14:07 Cardiac Echo Impressions Date of Service: 09/02/16 0735 Echocardiogram Report Interpretation Summary NSR. Worsening cardiomyopathy. Normal LV size and upper limit of normal concentric LVH. There is mid- inferoseptal, mid-anteroseptal, distal septal, mid-inferolateral and basal anterolateral hypokinesis. There is basal anterior, mid-anterior, distal- anterior, mid-anterolateral akinesis. Otherwise normal wall motion. EF is 35- 40%. Stage II diastolic dysfunction. Moderate bilateral pleural effusions. Compared to prior study 04/10/2016, pleural effusions are new. EF is down from 50-55% to 35-40%. Focal wall motion abnormalities are new. Reading Physician:03:59 PM Additional Diagnostics PROCEDURE: 1. Right heart catheterization. 2. Retrograde left heart catheterization. 3. Selective angiography. 4. Balloon angioplasty and stenting to the ramus intermedius ostium. 5. Left ventricular angiogram. 6. Vascular closure device, Angio-Seal. CONCLUSION: 1. Chronically occluded left anterior descending. 2. Critical 99% stenosis at the ramus intermedius ostium. This was successfully treated with one drug-eluting stent. 3. Moderate to severe stenosis of the left posterolateral branch. 4. LVEF 20%. 5. 2+ mitral regurgitation. 6. Cardiac index is 1.9 L/minute per meter squared. 7. Mean pulmonary capillary wedge pressure is 25 mmHg with a V wave of 33 mmHg. Assessment & Plan Ms. Darling Medel is a pleasant 66 year old lady with history of ischemic cardiomyopathy, Insulin dependant Diabetes II, hyperlipidemia, presented to the ED with c/o worsening shortness of breath for 1 day. She c/o associated peripheral edema, orthopnea, clear productive cough for 2 days. She developed acute decompensated heart failure and was aggressively diuresed with IV Furosemide. Cardiac Catheterization done on 09/07/16 showed 99% stenosis of the Ramus Intermedius Ostium and was successfully stented. She is still being aggressively diuresed to help with breathing and CHF. Macrocytic Anemia, present on admission, Active. MCV > 100, Hgb 8.8, Folate > 19.9, LDH 244, Haptoglobin 227, Vitamin B12 1039 - Currently stable, will continue to monitor - Hemoglobin on admission - 10.3, currently trending down to 8.8 today. - With History of CAD and CHF transfusion threshold of hgb < 10. - Will attempt to obtain consent and transfuse 1-2 PRBCs. Will follow Transfusion with Lasix dose due to CHF and active goal of diuresis. . Acute decompensated Heart Failure with reduced ejection fraction, present on admission. Improving. - Echo 09/02 showing: "Compared to prior study 04/10/2016, pleural effusions are new. EF is down from 50-55% to 35-40%. Focal wall motion abnormalities are new. " - Appreciate cardiology consult. Will continue to follow their recommendations - Cardiac Catheterization results as above. - Diurese with Furosemide 40 mg IV BID as patient still fluid overloaded. Goal is net output of 1.5 L daily. - Continue spironolactone 25 mg daily Chronic Ischemic Cardiomyopathy, present on admission, active. - Appreciate cardiology consult. Will followup with recommendations - Troponins from 08/30 0.033 to 09/02 0.061, with high of 0.091 on 08/31 - Cardiac cath with stenting 09/07/16. Results as above. - Continue ASA, Plavix. - Metoprolol Succinate 25 mg BID Acute Sinusitus, not present on admission, Resolved. Patient developed frontal sinus tenderness more on the left. No leukocytosis - Humidified oxygen helped relieve patient sinusitis. - Augmentin d/c'd. Acute hyponatremia and mild azotemia. Not present on admission. Improving. - Likely due to pre-renal state from IV Lasix and cardiomyopathy - Follow up BMP closely Insulin dependent Diabetes mellitus, present on admission. Active. - Patient has poor glucose while in the hospital ranging from 200-300's. - Lantus 35 units nightly with medium dose correcting scale - HgA1c 8.2 on 08/31/16 - Added 3 units lispro TIDAC to optimize blood sugar control. Hyperlipidemia - Fasting lipid panel within normal limits - Reported allergy to Statins, but is tolerating 5mg Crestor. Acetaminophen for mild pain and fever when necessary. Bowel regimen Senna and MiraLAX scheduled and PRN. Zofran when necessary for nausea and vomiting. Subq heparin. SCDs in place. High-risk medications: IV Morphine PRN. Disposition: Likely discharge tomorrow 09/11/16. Patient is currently improving on O2 needs with active diuresis. Will be discharged to home when medically stable. Pain Evaluation: Adequate Pain Control GI Prophylaxis: Proton Pump Inhibitor VTE Prophylaxis: Sub-Q Heparin (Unfractionated) VTE Mechanical Devices: Intermittant Pneumatic CD Resuscitation Status: CPR: Attempt Resuscitation Attending Statement The patient was seen and examined together with Dr. Abarca on 09/10/2016 and I agree with the history, exam and plan as outlined in the note above. . DANNY ABARCA DO Sep 10, 2016 06:34 Carmelo Ag MD Sep 10, 2016 16:19
[2016-09-10] MEDS ORDERED: 0.9% Sodium Chloride 250 ML IV PRN (16:10)
--- NOTE | 2016-09-10 18:06 | NUR ---
Activity/Anemia/Oxygen Patient a/o x 3, denies pain, nausea or sob. O2 changed to RA sat 89-94% at rest. Up amb in ware with [facility] missael well. VSS, tele SR. Orders recieved to transfuse RBC pending H/H results. Voiding clear yellow uop.
[2016-09-10] MEDS: Insulin GLARgine 100 Unit/mL Syringe SUBQ SCH (22:20)
[2016-09-11 00:08] VITALS: BP 91/47; PULSE 72; RESP 16; O2SAT 92
[2016-09-11] MEDS: Sodium Chloride LOK Flush 10 mL Syringe IVFLUSH SCH ×2 (00:30→08:17)
[2016-09-11 04:32] LABS: Mean Corpuscular Hemoglobin 36.1 pg (27.0-35.0)
[2016-09-11 05:12] VITALS: BP 85/49; PULSE 82; RESP 16; O2SAT 91
--- NOTE | 2016-09-11 05:42 | NUR ---
H&H/Activity Patient's H&H improved to 9.5 and 28.2. Blood transfusion held per prior discussion with patient and medical staff. Patient up with standby assist in room; maintaining SpO2 in mid-90s on room air. Continue to monitor.
[2016-09-11 08:11] VITALS: BP 94/60; PULSE 80; RESP 16; O2SAT 92
[2016-09-11 08:15] VITALS: PULSE 80
[2016-09-11] MEDS: Heparin 5,000 Unit/mL Inj SUBQ SCH (08:15)
[2016-09-11] MEDS: MeTOProlol XL 25 mg ER24 Tablet PO SCH (08:15)
[2016-09-11] MEDS: Pantoprazole 20 mg ER24 Tablet PO SCH (08:15)
[2016-09-11] MEDS: Insulin LISPRO 300 Unit/3 mL Inj SUBQ SCH ×4 (08:18→12:36)
[2016-09-11 10:05] VITALS: PULSE 81
[2016-09-11] MEDS ORDERED: 0.9% Sodium Chloride 250 ML IV ONE ×3 (11:00→14:45)
[2016-09-11 12:00] VITALS: BP 107/62; PULSE 82; RESP 22; O2SAT 100
[2016-09-11 13:44] LABS: Mean Corpuscular Volume 103.1 fL (81-100)
[2016-09-11] MEDS ORDERED: CLOP75TA28 PO (13:48)
[2016-09-11] MEDS ORDERED: ROSU5TAB PO (13:48)
[2016-09-11] MEDS ORDERED: NITR0.4T SL (13:48)
[2016-09-11] MEDS ORDERED: LOSA25TA2 PO (13:48)
[2016-09-11] MEDS ORDERED: METO25TA99 PO (13:48)
--- NOTE | 2016-09-11 14:30 | PCM.DIMED ---
Dinesh Young DO 09/11/16 1343: Discharge Instructions Date of Service Sep 11, 2016 Dates of Hospitalization Aug 31, 2016 at 00:29 Discharge Diagnosis Discharge Diagnosis Macrocytic Anemia Acute decompensated Heart Failure with reduced ejection fraction Chronic Ischemic Cardiomyopathy Acute Sinusitus Acute hyponatremia and mild azotemia Insulin dependent Diabetes mellitus Hyperlipidemia Medication Instructions Additional med instructions New Medications Clopidogrel 75 mg once by mouth, daily for one year (09/09/16) Metoprolol 12.5 mg take one pill two times per day until reviewed by your primary care physician Spironolactone 25 mg once by mouth in the morning until reviewed by your primary care physician Furosemide 40 mg once by mouth in the morning until reviewed by your primary care physician - Do not take for the next 3 days unless weight increases by 1 lb in a day Losartan 12.5 mg once per night until reviewed by your primary care physician Stop Metoprolol 25 mg Diet Discharge Diet: Low fat, Low Sodium, Heart Healthy, Diabetic Activity Discharge Activity: Outpatient Physical Therapy Call your provider Call your provider for: Fever or Chills, Shortness of breath, Bleeding, Chest pain, Vomitting, Excessive diarrhea, Weakness (unilateral) Patient Instructions Patient Instructions New Medications Clopidogrel 75 mg once by mouth, daily for one year (09/09/16) Metoprolol 12.5 mg take one pill two times per day until reviewed by your primary care physician Spironolactone 25 mg once by mouth in the morning until reviewed by your primary care physician Furosemide 40 mg once by mouth in the morning until reviewed by your primary care physician - Do not take for the next 3 days unless weight increases by 1 lb in a day Losartan 12.5 mg once per night until reviewed by your primary care physician Stop Metoprolol 25 mg Please follow up with CHF clinic for good management of your congestive heart failure. Follow up with your primary care provider within this week. - You need to have your CBC and BMP labs checked in the next 2-3 days to monitor your anemia and kidney function. You may want to discuss at what point blood transfusion is necessary. Follow up with Dr. Zamora in 4-6 weeks Make sure to check your weights daily. If you gain 1 lb in a day, take your lasix or have close follow up care with the CHF clinic Follow-up Provider: Georgia Boyle PA-C Follow-up with PCP in: 1 week (1 week) Provider: Tomer Zamora MD Cardiac Rehab: 1 week CHF Clinic: 1 week Alina Hernadez DO 09/11/16 1808: Discharge Instructions Attending's Statement The patient was seen and examined together with Dr. Young on 09/11/16 and I agree with the history, exam and plan as outlined in the note above. Dinesh Young DO Sep 11, 2016 13:43 Alina Hernadez DO Sep 11, 2016 18:08
--- NOTE | 2016-09-11 16:00 | NUR ---
Discharge note Patient a/o x 3, denies pain, nausea or sob. Patient oob amb indep in halls, steady gait. VSS, tele SR. Patient given 250 ml NS bolus x 2, prior to discharge. IV SL and tele removed intact. Patient given discharge instructions, med rec, prescriptions, info on CHF and CARTER. All questions answered. Patient taken to the car via wheelchair with all belongings and discharged home with .
--- NOTE | 2016-09-11 16:10 | PROG NOTE ---
[address] [address] PROGRESS NOTE PATIENT: REED TANNER : 1950 MR#: [id number] ADMIT: 08/31/2016 JOB ID: [id number] DATE: 09/11/2016 SUBJECTIVE: The patient feels a lot better today. She feels back to her normal self. She can lie flat on her back without trouble breathing. She walks along the [place] and made one round earlier. She would like to go home. OBJECTIVE: Temperature is 37.1. Blood pressure is 107/62. Pulse 82. Body weight is 77.3 kg. Neck: No jugular venous distention or carotid bruits. Chest: Normal expansion. Lungs: Diminished breath sounds at base bilaterally. Clear in the upper lungs valenzuela. Heart: The first heart sound is diminished. Her 2nd heart sound is normal. No murmur appreciated. Abdomen: Soft, nontender. Extremity: Trace edema. No clubbing or cyanosis. Neurologic: Grossly intact. BLOOD TESTS: Show hemoglobin 9.0, WBC 7.2, platelet 239. Sodium 131, potassium 4.6, chloride 89, bicarb 27, BUN 23, creatinine 1.44, glucose 210. IMPRESSION: 1. Acute on chronic combined systolic and diastolic heart failure, compensated. 2. Ischemic cardiomyopathy with ejection fraction 35-40%. 3. Mild mitral regurgitation. 4. Status post stent to the ramus intermedius on September 07, 2016. 5. Anemia. PLAN: I believe that the patient is ready to be discharged from the hospital. She will be discharged with aspirin, clopidogrel, metoprolol succinate, losartan, spironolactone, furosemide, and statin. She should follow with her primary breakfast hostess, Dr. Zamora, in the next couple weeks. KAREN
--- NOTE | 2016-09-11 16:33 | NUR ---
Social Work: Discharge Data& Assessment: Pt was discussed in multidisciplinary rounds, per pt is medically ready for discharge. Darling Lutz is a 66 year old female admitted on 08/31/2016 for CHF exacerbation. Pt is now on room air does not require supplemental O2. Pt has kept up her strength and was cleared by PT to return home without any additional PT needs. Pt independent with self care. SW confirmed with [facility] that pt has follow up CHF clinic appointment scheduled. SW met with pt at bedside to confirm discharge plan and assess for any unmet needs. Pt transporting her home. Pt denies any other needs. No other discharge needs or MD orders identified. Plan: Per pt is medically ready to discharge home via POV. Pt denies any other needs. No other discharge needs or MD orders identified. RYAN Martinez
--- NOTE | 2016-09-11 17:29 | PCM.DC.MED ---
Discharge Summary Date of Service Sep 11, 2016 Dates of Hospitalization Date of Hospital Admission Aug 31, 2016 at 00:29 Date of Discharge: Sep 11, 2016 Providers: Admitting Physician: Carmelo Ag MD Primary Care Physician: Georgia Boyle PA-C Attending Physician: Alina Hernadez DO Transportation Dispatch Manager: Kaleb Young DO Resident Senior: Bright Herrera DO Diagnosis at Time of Discharge Diagnosis at Time of Discharge Acute decompensated Heart Failure with reduced ejection fraction Chronic Ischemic Cardiomyopathy Macrocytic Anemia Acute Sinusitus Acute hyponatremia and mild azotemia Insulin dependent Diabetes mellitus Hyperlipidemia Consultations Cardiology, Dr. Zamora, Dr. Mccarty Procedures XRay, CTs & MRIs Date of Service: 09/01/16 0600 PROCEDURE: X-RAY CHEST, TWO VIEWS ([id number]) IMPRESSION: Slight decrease in pulmonary edema as well as improvement involving the right lung base with persistent consolidation involving the left lung base. Small pleural effusion. Dictated by: Donovan Nichols RRA Interpreted: Shayy Styles MD on 09/01/2016 at 9:37 Approved by: Shayy Styles M.D. on 09/01/2016 at 14:07 Cardiac Echo Impression Date of Service: 09/02/16 0735 Echocardiogram Report Interpretation Summary NSR. Worsening cardiomyopathy. Normal LV size and upper limit of normal concentric LVH. There is mid- inferoseptal, mid-anteroseptal, distal septal, mid-inferolateral and basal anterolateral hypokinesis. There is basal anterior, mid-anterior, distal- anterior, mid-anterolateral akinesis. Otherwise normal wall motion. EF is 35- 40%. Stage II diastolic dysfunction. Moderate bilateral pleural effusions. Compared to prior study 04/10/2016, pleural effusions are new. EF is down from 50-55% to 35-40%. Focal wall motion abnormalities are new. Reading Physician:03:59 PM Other Diagnostics PROCEDURE: 1. Right heart catheterization. 2. Retrograde left heart catheterization. 3. Selective angiography. 4. Balloon angioplasty and stenting to the ramus intermedius ostium. 5. Left ventricular angiogram. 6. Vascular closure device, Angio-Seal. CONCLUSION: 1. Chronically occluded left anterior descending. 2. Critical 99% stenosis at the ramus intermedius ostium. This was successfully treated with one drug-eluting stent. 3. Moderate to severe stenosis of the left posterolateral branch. 4. LVEF 20%. 5. 2+ mitral regurgitation. 6. Cardiac index is 1.9 L/minute per meter squared. 7. Mean pulmonary capillary wedge pressure is 25 mmHg with a V wave of 33 mmHg. Brief History Ms. Darling Medel is a pleasant 66 year old lady with history of ischemic cardiomyopathy, Insulin dependant Diabetes II, hyperlipidemia, who presented to the ED with c/o worsening shortness of breath for 1 day with associated peripheral edema, orthopnea, clear productive cough for 2 days. In the ED she was found to have positive troponin which was thought to be due to CHF exacerbation. She was subsequently admitted to the hospital. She had uptrending troponins and EKG showing sinus rhythm with inferolateral ST-segment depression. She also had an echocardiogram which showed worsening cardiomyopathy and an EF of 35-40%. Cardiology was consulted who recommended aggressive diuresis and cardiac catheterization. She was to have cardiac catheterization on 09/04/16, but developed flash pulmonary edema prior to procedure so she was aggressively diuresed with a lasix drip. Cardiac Catheterization done on 09/07/16 showed 99% stenosis of the Ramus Intermedius Ostium and was successfully stented. She was still volume overloaded after the procedure and she was aggressively diuresed for 3 days following the catheterization per cardiology recommendation. Initially in her stay, her oxygen requirements were up to 7L and requiring BiPAP at times. She slowly decreased in her oxygen requirements to breathing well on room air at the time of discharge. 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 She needs a repeat CBC and BMP to assess her kidney function and macrocytic anemia, which she's had throughout her hospitalization. Hospital Course Ms. Darling Medel is a pleasant 66 year old lady with history of ischemic cardiomyopathy, Insulin dependant Diabetes II, hyperlipidemia, presented to the ED with c/o worsening shortness of breath for 1 day. She c/o associated peripheral edema, orthopnea, clear productive cough for 2 days. She developed acute decompensated heart failure and was aggressively diuresed with IV Furosemide. Cardiac Catheterization done on 09/07/16 showed 99% stenosis of the Ramus Intermedius Ostium and was successfully stented. Hospital Problem list outlined below Macrocytic Anemia, present on admission, Active. MCV > 100, Hgb 8.8, Folate > 19.9, LDH 244, Haptoglobin 227, Vitamin B12 1039 - Currently stable, will require outpatient follow up - Hemoglobin on admission - 10.3, currently trending down to 8.8 09/10/16. - With History of CAD and CHF transfusion threshold of hgb < 10. Will defer to outpatient decision.. Mild CARTER most likely secondary to diuresis -Continue to monitor as outpatient Acute hyponatremia -250cc bolus -Na level 131 trending upwards Acute decompensated Heart Failure with reduced ejection fraction, present on admission. Improving. - Echo 09/02 showing: "Compared to prior study 04/10/2016, pleural effusions are new. EF is down from 50-55% to 35-40%. Focal wall motion abnormalities are new. " - Appreciate cardiology consult. Followed their recommendations. - Cardiac Catheterization results as above. - Patient was diuresed with furosemide throughout her stay. - Spironolactone 25 mg daily Chronic Ischemic Cardiomyopathy, present on admission, active. - Appreciate cardiology consult. Followed their recommendations. - Troponins from 08/30 0.033 to 09/02 0.061, with high of 0.091 on 08/31 - Cardiac cath with stenting 09/07/16. Results as above. - ASA, Plavix s/p stent - Metoprolol Succinate 12.5mg BID Acute Sinusitus, not present on admission, Resolved. Patient developed frontal sinus tenderness more on the left. No leukocytosis - Humidified oxygen helped relieve patient sinusitis. - Augmentin d/c'd. Acute hyponatremia and mild azotemia. Not present on admission. Improving. - Likely due to pre-renal state from IV Lasix and cardiomyopathy Insulin dependent Diabetes mellitus, present on admission. Active. - Patient has poor glucose while in the hospital ranging from 200-300's. - Lantus 35 units used nightly with medium dose correcting scale - HgA1c 8.2 on 08/31/16 - Used 3 units lispro TIDAC to optimize blood sugar control. - Can use home insulin when discharged with recommendation for further blood sugar control outpatient. Hyperlipidemia - Fasting lipid panel within normal limits - Reported allergy to Statins, but is tolerating 5mg Crestor. She started refusing the medication towards the end of the hospital stay due to muscle tightness. This needs readdressing by PCP and/or cardiology outpatient. Exam Vital Signs (Last) Date Time Temp Pulse Resp B/P Pulse Ox O2 Delivery O2 Flow Rate FiO2 09/11/16 12:00 37.1 82 22 107/62 100 Room Air 09/10/16 13:29 1.00 09/07/16 04:15 40 Exam General: Patient in no acute distress, well-developed, well-nourished, appropriately interactive HEENT: Normocephalic, atraumatic. Anicteric sclerae, moist conjunctivae. Left frontal sinus tenderness. Neck: Supple with full range of motion. No jugular venous distension. No bruits. Cardiovascular: Regular rate and rhythm with no murmurs, rubs, or gallops appreciated Pulmonary: Clear to auscultation bilaterally, no wheezes, rhonchi. Abdomen: Bowel tones present. Soft, nontender, but mild discomfort, nondistended. Extremities: 1+ pitting edema bilaterally, No clubbing, cyanosis Skin: Normal temperature, turgor, and texture; no rash, ulcers, or subcutaneous nodules appreciated. Neurological: Cranial nerves grossly intact. Normal muscle strength, tone, and bulk. Psychiatric: Alert and oriented to person, place, and time. Test 08/30/16 21:15 08/31/16 09:11 09/01/16 06:58 09/02/16 22:20 Hold Lopez Top Tube Received (Received) Hemoglobin A1c 8.2% (4.8-5.6) Prothrombin Time 11.2sec (8.1-12.5) Prothromb Time International Ratio 1.05ratio Pro-B-Type Natriuretic Peptide 2535pg/mL (0-301) Lactic Acid Level 2.8mmol/L (0.4-2.0) Troponin T 0.061ug/L (0.0-0.011) Test 09/03/16 05:10 09/04/16 02:40 09/05/16 08:43 09/07/16 05:15 Reticulocyte Count,Calculated 3.4% (0.6-2.6) Iron Level 57ug/dL (35-150) Total Iron Binding Capacity 253ug/dL (250-450) Percent Iron Saturation 23%sat (15-50) Unsaturated Iron Binding 196.1ug/dL Ferritin 401ng/mL (13-150) Vitamin B12 Level 1039pg/mL (211-946) Folate > 19.9ng/mL (>3.0) Procalcitonin 0.11ng/mL (0.00-0.08) Haptoglobin 227mg/dL (34-200) Hematology Comments Lactate Dehydrogenase 244U/L (100-190) Triglycerides Level 68mg/dL (0-149) Cholesterol Level 146mg/dL (100-199) LDL Cholesterol, Calculated 77.400mg/dL (0-99) VLDL Cholesterol 13.600mg/dL HDL Cholesterol 55mg/dL (>39) Cholesterol/HDL Ratio 2.65 (0.0-4.4) Magnesium Level 1.8mg/dL (1.6-2.6) Test 09/08/16 17:26 09/10/16 03:20 09/11/16 04:10 09/11/16 13:41 Urine Color Yellow (YELLOW) Urine Appearance Clear (CLEAR,HAZY) Urine pH 5.0 (5.0-8.0) Urine Specific Barnard 1.010 (1.003-1.035) Urine Protein Negativemg/dL (NEG,TRACE) Urine Glucose (UA) Negativemg/dL (NEGATIVE) Urine Ketones Negativemg/dL (NEGATIVE) Urine Occult Blood Negative (NEGATIVE) Urine Nitrite Negative (NEGATIVE) Urine Bilirubin Negative (NEGATIVE) Urine Urobilinogen Normalmg/dL (NORMAL) Urine Leukocyte Esterase Small (NEGATIVE) Urine RBC 0-2/hpf (0-2) Urine WBC 0-5/hpf (0-5) Urine Epithelial Cells Occasional/hpf (NONE-MOD) Urine Crystals None seen (NONE SEEN) Urine Bacteria None/hpf (NONE-FEW) Urine Hyaline Casts None/lpf (NONE) Urine Granular Casts None seen (NONE SEEN) Urine Waxy Casts None seen (NONE SEEN) Urine Red Blood Cell Casts None seen (NONE SEEN) Urine White Blood Cell Casts None seen (NONE SEEN) Urine Mucus None seen (None Seen) Urine Trichomonas None seen (NONE SEEN) Urine Yeast None (NONE SEEN) Urinalysis Comment None Urine Culture Reflexed Indicated Neutrophils (%) (Auto) 50.8% (40-74) Lymphocytes (%) (Auto) 32.6% (14-46) Monocytes (%) (Auto) 13.3% (4-12) Eosinophils (%) (Auto) 2.7% (0-5) Basophils (%) (Auto) 0.3% (0-3) Total Bilirubin 0.3mg/dL (0.0-1.2) Aspartate Amino Transf (AST/SGOT) 24U/L (0-50) Alanine Aminotransferase (ALT/SGPT) 24U/L (0-32) Alkaline Phosphatase 99U/L (25-165) Total Protein 6.1g/dL (6.4-8.4) Albumin 3.3g/dL (3.4-5.0) Activated Partial Thromboplast Time 16.8sec (22.8-33.0) White Blood Count 6.5th/mm3 (3.8-10.1) Red Blood Count 2.62mil/mm3 (3.90-5.20) Hemoglobin 8.9g/dL (12.0-15.6) Hematocrit 27.0% (35.0-46.0) Mean Corpuscular Volume 103.1fL (81-100) Mean Corpuscular Hemoglobin 34.0pg (27.0-35.0) Mean Corpuscular Hemoglobin Concent 33.0% (32.0-37.0) Red Cell Distribution Width 13.0% (12.3-15.4) Platelet Count 247bil/L (150-400) Sodium Level 132mEq/L (134-144) Potassium Level 4.7mEq/L (3.5-5.2) Chloride Level 90mEq/L (97-108) Carbon Dioxide Level 25mmol/L (18-29) Blood Urea Nitrogen 24mg/dL (8-27) Creatinine 1.51mg/dL (0.57-1.00) Estimat Glomerular Filtration Rate 50mL/min (>59) Glucose Level 213mg/dL (60-99) Calcium Level 9.2mg/dL (8.5-10.1) Microbiology Results Urine Culture 09/08/16 - No growth to date Discharge Medications Discharge Medications ([Digestive Enzymes]) 1 TAB PO TIDWM (Reported) ([colloidal silver]) 1 TSP PO BID (Reported) ([Pqq]) 20 MG 20 MG PO QAM (Reported) Alpha Lipoic Acid (Alpha Lipoic Acid) 200 Mg Tablet 400 MG PO QAM (Reported) Clopidogrel (Clopidogrel) 75 Mg Tablet 75 MG PO DAILY Prescribed by: KALEB YOUNG Ely (Ely King) 500 Mg Capsule 500 MG PO QAM (Reported) Ibuprofen (Ibuprofen) 200 Mg Capsule 1,200 MG PO HS (Reported) Insulin Aspart (NovoLOG 70/30 U100 Insulin Vial) 100 Unit/Ml Vial 10 UNIT SUBQ DAILYWD (Reported) NOVOLOLG 70/30 20 UNITS WITH BREAKFAST AND NOVOLOG 70/30 10 UNITS WITH DINNER Insuln Asp Prt/Insulin Aspart (NovoLOG 70/30 U100 Insulin Flexpen) 100 Unit/Ml Unit 18-20 UNIT SUBQ DAILYWM (Reported) NOVOLOLG 70/30 20 UNITS WITH BREAKFAST AND NOVOLOG 70/30 10 UNITS WITH DINNER Lactobacillus Acidophilus (Probiotic) 1 Each Capsule 1 EACH PO QAM (Reported) Losartan Potassium (Cozaar) 25 Mg Tablet 12.5 MG PO HS Prescribed by: KALEB YOUNG Magnesium Oxide (Magnesium) 500 Mg Capsule 500 MG PO BIDWM (Reported) Metformin (Glucophage) 1,000 Mg Tablet 1,000 MG PO BIDWM (Reported) Metoprolol Succinate ER (Metoprolol Succinate ER) 25 Mg Tab.er.24h 12.5 MG PO BID Prescribed by: KALEB YOUNG Multivitamin (Once Daily) 1 Each Tablet 1 EACH PO QAM (Reported) Paradise-3/Dha/Epa/Fish Oil (Fish Oil 1,000 mg Softgel) 1 Each Capsule 1 EACH PO BIDWM (Reported) Potassium Gluconate (Potassium) 99 Mg Tablet 99 MG PO HS (Reported) Rosuvastatin Calcium (Crestor) 5 Mg Tablet 5 MG PO HS Prescribed by: KALEB YOUNG Spironolactone (Spironolactone) 25 Mg Tablet 25 MG PO QAM (Reported) Ubidecarenone (Coenzyme Q-10) 200 Mg Capsule 200 MG PO QAM (Reported) Vit B Comp/C/FA/Iron/Vit E (Vitamin B Complex Tablet) 1 Each Tablet 1 EACH PO QAM (Reported) Vitamin K2 (Vitamin K2) 40 Mcg Tablet 40 MCG PO QAM (Reported) As needed Furosemide (Furosemide) 40 Mg Tablet 40 MG PO DAILY PRN PRN EDEMA (Reported) Nitroglycerin SL (Nitrostat) 0.4 Mg Tab.subl 0.4 MG SL Q5MIN PRN PRN For Chest Pain IF SBP > 90 Prescribed by: KALEB YOUNG, Additional med instructions New Medications Clopidogrel 75 mg once by mouth, daily for one year (09/09/16) Metoprolol 12.5 mg take one pill two times per day until reviewed by your primary care physician Spironolactone 25 mg once by mouth in the morning until reviewed by your primary care physician Furosemide 40 mg once by mouth in the morning until reviewed by your primary care physician - Do not take for the next 3 days unless weight increases by 1 lb in a day Losartan 12.5 mg once per night until reviewed by your primary care physician Stop Metoprolol 25 mg Followup Plan Discharge Diet: Low fat, Low Sodium, Heart Healthy, Diabetic Discharge Activity: Outpatient Physical Therapy Patient Instructions New Medications Clopidogrel 75 mg once by mouth, daily for one year (09/09/16) Metoprolol 12.5 mg take one pill two times per day until reviewed by your primary care physician Spironolactone 25 mg once by mouth in the morning until reviewed by your primary care physician Furosemide 40 mg once by mouth in the morning until reviewed by your primary care physician - Do not take for the next 3 days unless weight increases by 1 lb in a day Losartan 12.5 mg once per night until reviewed by your primary care physician Stop Metoprolol 25 mg Please follow up with CHF clinic for good management of your congestive heart failure. Follow up with your primary care provider within this week. - You need to have your CBC and BMP labs checked in the next 2-3 days to monitor your anemia and kidney function. You may want to discuss at what point blood transfusion is necessary. Follow up with Dr. Zamora in 4-6 weeks Make sure to check your weights daily. If you gain 1 lb in a day, take your lasix or have close follow up care with the CHF clinic You need to discuss your insulin regimen outpatient to optimize blood sugar control. In the hospital you recieved 35 units of lantus per night with 3 units of lispro with each meal. Follow-up Provider: Georgia Boyle PA-C Follow-up with PCP in: 1 week (1 week) Provider: Tomer Zamora MD Cardiac Rehab: 1 week CHF Clinic: 1 week Time spent Greater than 35 minutes Attending Statement The patient was seen and examined together with Dr. Young on 09/11/2016 and I have added additional information to the note above. copies to: Georgia Boyle PA-C; Tomer Zamora MD, Malik A DO Sep 11, 2016 16:30 Alina Hernadez DO Sep 11, 2016 18:16
[2016-09-11] MEDS ORDERED: MeTOProlol XL 25 mg ER24 Tablet PO SCH (20:30)
== END 2016-09-11 15:59 | disposition home or self-care (01) | DRG 246 ==
LOC: EDBD 20:53 → EDUNIT# 20:53 → SED 20:53 → MPC 08-31 00:29 → PCC 09-02 22:11
PROVIDERS: ADMIT Internal Medicine; ATTEND Internal Medicine
PROC: 4A033R1 Measurement of Arterial Saturation, Peripheral, Percutaneous Approach (ICD-10-PCS; 2016-09-02)
PROC: 4A023N8 Measurement of Cardiac Sampling and Pressure, Bilateral, Percutaneous Approach (ICD-10-PCS; principal; 2016-09-07)
PROC: B2111ZZ Fluoroscopy of Multiple Coronary Arteries using Low Osmolar Contrast (ICD-10-PCS; 2016-09-07)
PROC: 027034Z Dilation of Coronary Artery, One Artery with Drug-eluting Intraluminal Device, Percutaneous Approach (ICD-10-PCS; 2016-09-07)
PROC: B2151ZZ Fluoroscopy of Left Heart using Low Osmolar Contrast (ICD-10-PCS; 2016-09-07)
PROC: 4A0335C Measurement of Arterial Flow, Coronary, Percutaneous Approach (ICD-10-PCS; 2016-09-07)
DX: I50.23 Acute on chronic systolic (congestive) heart failure (principal); J96.01 Acute respiratory failure with hypoxia; I24.8 Other forms of acute ischemic heart disease; E87.1 Hypo-osmolality and hyponatremia; J90 Pleural effusion, not elsewhere classified; E66.9 Obesity, unspecified; Z68.28 Body mass index [BMI] 28.0-28.9, adult; J01.90 Acute sinusitis, unspecified; D64.9 Anemia, unspecified; Z79.4 Long term (current) use of insulin; E78.5 Hyperlipidemia, unspecified; E11.40 Type 2 diabetes mellitus with diabetic neuropathy, unspecified; I25.10 Atherosclerotic heart disease of native coronary artery without angina pectoris; Z95.5 Presence of coronary angioplasty implant and graft; I48.0 Paroxysmal atrial fibrillation; I25.5 Ischemic cardiomyopathy